=== PATIENT | male | born 1945 | race Caucasian/White ===

== ENCOUNTER 2021-05-02 22:03 | Inpatient (IN) | payer MEDICARE, OTHER, SELFPAY ==
[2021-05-02] VITALS (11 sets, daily range): BP systolic 127–139; BP diastolic 49–56; PULSE 54–81; RESP 16–28; TEMP 36.7; O2SAT 92–97
--- NOTE | 2021-05-02 22:15 | DI.CT_ITS ---
Exam(s) CT ABDOMEN PELVIS W EXAM: CT ABDOMEN PELVIS W CLINICAL HISTORY: RLQ pain TECHNIQUE: Imaging Protocol: Axial computed tomography images with coronal and sagittal reformatted images were created and reviewed CONTRAST MATERIAL: Intravenous: Omnipaque 350 Contrast volume:100 mL Oral: No COMPARISON: CT ABD PELVIS WITH CONTRAST from 11/14/2015 CT THORACIC AND LUMBAR SPINE WO from 11/14/2015 FINDINGS: ABDOMEN: Lung Bases: There are scattered blebs in the lower lobes. There is scarring or atelectasis in the norah ng bases. Liver: Normal density. No measurable mass. Portal, Superior Mesenteric, and Splenic Veins: Unremarkable. Gallbladder and Biliary Tract: No cholelithiasis. The common duct measures up to 1.2 cm. Pancreas: Normal density, no abnormal calcifications or inflammatory process. There is a solitary efe cification again seen in the head of the pancreas. Spleen: Normal. Adrenals: No masses seen. Kidneys: There is scarring seen in the left kidney. Bilateral nonobstructing stones are present. Th ere are bilateral renal cysts. The largest measures 5.1 cm. They are all stable in size and appeara nce with Hounsfield units less than 20. No follow-up is recommended. Abdominal Aorta: Abdominal portion non-dilated. Atherosclerosis. Bowel: No obstruction or bowel wall thickening. No evidence of appendicitis. There is diverticulosis throughout the colon, but no evidence of acute diverticulitis. There is a 2 moderately large midlin e anterior abdominal wall hernias containing loops of transverse colon and small bowel. No evidence of strangulation or obstruction. Peritoneal Cavity: No ascites, collection or mesenteric inflammatory response. No free air. Lymph Nodes: Within normal limits. Bones: Within normal limits for the patient's age. Soft Tissues: Unremarkable. PELVIS: Bladder: Symmetric distention, no gross wall thickening. Reproductive Organs: Enlarged prostate gland which impinges upon the base of the urinary bladder. Lymph Nodes: Within normal limits. Bones: Within normal limits for the patient's age. IMPRESSION: 1. Common duct measuring up to 1.2 cm. No definite pancreatic mass. No cholelithiasis. Please mary elate with patient's clinical findings. MRCP or ERCP should be considered for further evaluation. 2. Two moderately large bowel containing anterior abdominal wall hernias. No evidence of obstruction or strangulation. RADIATION DOSE DELIVERED: 1,662.62mGy.cm Total DLP DATA REPOSITORY: All CT scans at this facility are submitted to the National Radiology Data Registry (NRDR) Dose Index Registry (DIR) with the [employer] (A[employer]). RADIATION OPTIMIZATION: All CT scans at this facility use at least one of these dose optimization te chniques: automated exposure control; mA and/or kV adjustment per patient size (includes targeted exa ms where dose is matched to clinical indication); or iterative reconstruction.
--- NOTE | 2021-05-02 22:15 | W.ED.GENAD ---
Discharge Plan Disposition Patient Disposition: [facility] INPATIENT Condition: Good Discharge Details Clinical Impression: Abdominal pain, Choledocholithiasis Admit Date/Time: 05/03/21 02:30 Admit Provider: Yandel Martinez Attending Provider: Yandel Martinez Primary Care Provider: Unknown,Unknown ED Provider: Grady Peralta Discharge Data Discharge Date/Time-TO BE ENTERED AT DEPARTURE: 05/03/21 02:55 Medical Decision Making <TEODORO Baxter - Last Filed: 05/07/21 08:02> 76-year-old gentleman, past history of abdominal hernia, renal carcinoma, hypertension, A. fib, on Xarelto, presenting with abdominal pain that began around noon today after working with his tractor. Clinically he appears uncomfortable, examination most concerning for strangulated hernia, small bowel obstruction, etc. Will obtain IV access, give IV fluid, Zofran, Dilaudid, obtain CBC, CMP, lipase, urinalysis, lactate and once I have his renal function he will go for a CT of his abdomen and pelvis with contrast Patient reports significant improvement with IV Dilaudid and Zofran Initial laboratory data circular white blood cell count of 6.42 hemoglobin 12.8 hematocrit 37.3 platelet count 201. Lactate of 2.8. Chemistries pending. Medical Records Medical records reviewed: Yes I reviewed the patient's medical records. Lab Data Lab results reviewed: Yes I reviewed the patient's lab results. Labs: Laboratory Tests Range/Units 05/02/21 05/02/21 22:50 22:50 WBC (4.4-10.8) 10^3/uL 6.43 RBC (4.36-5.78) 10^6/uL 3.90 L Hgb (13.5-17.5) g/dL 12.8 L Hct (40.0-50.0) % 37.3 L MCV (80-95) fL 95.6 H MCH (27.0-33.0) pg 32.8 MCHC (32.0-36.0) % 34.3 RDW (11.8-14.1) % 12.9 Plt Count (130-400) 10^3/uL 201 MPV (8.0-11.0) fL 9.6 Immature Gran % 0.5 Neutrophils % 87.5 Lymphocytes % 6.4 Monocytes % 4.8 Eosinophils % 0.6 Basophils % 0.2 Nucleated RBC % % 0 Absolute Neutrophils (1.2-6.7) 10^3/uL 5.63 Absolute Lymphocytes (1.2-3.4) 10^3/uL 0.41 L Absolute Monocytes (0.1-0.8) 10^3/uL 0.31 Absolute Eosinophils (0.0-0.7) 10^3/uL 0.04 Absolute Basophils (0.0-0.2) 10^3/uL 0.01 VBG Lactate (0.6-1.4) mmol/L 2.8 H* <Grady Peralta, DO - Last Filed: 05/03/21 02:38> Case was signed out to me by my colleague Mac Robbins. Please refer to his HPI physical exam assessment and plan. At time of signout we are pending labs and CAT scan results. Labs demonstrate no elevation in white count. No left shift. Lactate is high at 2.8. Electrolytes stable. Anion gap 12.9. Total bili is 2.1 with a conjugated bili of 1.4. Patient does demonstrate transaminitis with an AST of 442 and an ALT of 281. Lipase normal. Urinalysis negative. CT scan shows evidence of prominence of the common bile duct certainly concerning for choledocholithiasis. No radiographic evidence of acute cholecystitis. With these concerning findings we will reach out to [facility] for potential ERCP. 2:20 AM I spoke with Dr. Melendez of [facility], he agrees with the need for ERCP. Unfortunately no beds are available at [facility] at this time. He recommends that we keep the patient here overnight, and then transferred to [facility] in the morning for the procedure and then transfer back after the procedure is complete. currently no clinical evidence of ascending cholangitis. We will contact the hospitalist for admission. Of note the patient did take his Xarelto this evening 6 PM. This will need to be held per the request of [facility]. Of note on repeat physical exam the patient does not demonstrate significant tenderness over the large ventral hernia. No clinical evidence of incarcerated and strangulated herniation at this point clinically or on radiograph. 2:30 AM Discussed the case with the hospitalist Dr. Deion, he agrees with the assessment and plan. I will place bridging orders on his behalf. I have extensively reviewed the treatment plan with the patient. I have addressed all patient concerns at this time. I have also discussed the plan with the admitting physician and they agree with the current assessment and plan and have agreed to assume responsibility for the patient. All parties demonstrate verbal understanding and agreement with our assessment and plan at this time. The documentation in this chart was dictated using [employer] dictation software. Please excuse any dictation errors. FINDINGS: Liver: Normal. No mass. Gallbladder and bile ducts: Mild prominence of the common bile duct, correlate with patient labs to exclude obstruction with MRCP or ERCP for further evaluation as clinically indicated. Pancreas: Normal. No ductal dilation. Spleen: Normal. No splenomegaly. Adrenal glands: Normal. No mass. Kidneys and ureters: Renal cysts up to 5 cm. No hydronephrosis. Nonobstructing left renal calculus. Stomach and bowel: Colonic diverticula. Appendix: No evidence of appendicitis. Intraperitoneal space: Unremarkable. No free air. No significant fluid collection. Vasculature: Unremarkable. No abdominal aortic aneurysm. Lymph nodes: Unremarkable. No enlarged lymph nodes. Urinary bladder: Unremarkable as visualized. Reproductive: Unremarkable as visualized. Bones/joints: Unremarkable. No acute fracture. Soft tissues: Bowel containing midline ventral hernias. IMPRESSION: Mild prominence of the common bile duct, correlate with patient labs to exclude obstruction with MRCP or ERCP for further evaluation as clinically indicated. Thank you for allowing us to participate in the care of your patient. Dictated and Authenticated by: Nicolas Kenney MD 05/03/2021 12:53 AM Eastern Time ([place] & [place]) HPI <TEODORO Baxter - Last Filed: 05/07/21 08:02> General Mode of arrival: ambulatory. Date/Time Provider Initiated Documentation: 05/02/21 22:14. Limitations to Documentation: no limitations. Information obtained by: patient. HPI Narrative: This is a 76-year-old gentleman, who unfortunately is in significant pain making the HPI rather difficult, history of hypertension, presenting for abdominal pain that began earlier today around noon time a wall working on a tractor. Patient reports that he approximately 4 or 5 years ago had abdominal surgery secondary to renal carcinoma. Patient subsequently had a abdominal hernia repair as well. The hernia got larger over the last year or so. Reports pain has been constant, crampy, sharp ever since noon progressively worse now 10 out of 10. Reports nausea, vomiting x2 earlier today. He denies any fever, sick contacts, chest pain, shortness of breath, back pain, dysuria. Patient reports that he had a normal bowel movement this morning. Patient does admit that he has been passing gas this afternoon. Patient reports that he takes Xarelto for atrial fibrillation. We are in the process of attempting to obtain a full medication list, patient is unable to provide full medication list at this time. Patient denies recent illness or trauma. No additional concerns or complaints at this time. Related Data Home Medications Medication Instructions Recorded Confirmed tramadol 50 mg PO QID PRN PRN #30 tab 11/14/15 amitriptyline 10 mg PO DAILY 05/02/21 05/02/21 atorvastatin 80 mg PO QPM 05/02/21 05/02/21 furosemide 20 mg PO Q OTHER DAY 05/02/21 05/02/21 isosorbide mononitrate 60 mg PO DAILY 05/02/21 05/02/21 metoprolol tartrate 125 mg PO DAILY 05/02/21 05/02/21 piroxicam 20 mg PO DAILY 05/02/21 05/02/21 tamsulosin 0.8 mg PO HS 05/02/21 05/02/21 ascorbic acid (vitamin C) [Vitamin 1,000 mg PO DAILY 05/03/21 05/03/21 C] aspirin 81 mg PO DAILY 05/03/21 05/03/21 lisinopril 5 mg PO DAILY 05/03/21 05/03/21 magnesium oxide 400 mg PO DAILY 05/03/21 05/03/21 multivitamin 1 cap PO DAILY 05/03/21 05/03/21 vitamin D3-vitamin K2 1 tab PO DAILY 05/03/21 05/03/21 Xarelto 20 mg PO QPM #0 tab 05/06/21 05/02/21 Previous Rx's Medication Instructions Recorded tramadol 50 mg PO QID PRN PRN #30 tab 11/14/15 Xarelto 20 mg PO QPM #0 tab 05/06/21 Allergies Allergy/AdvReac Type Severity Reaction Status Date / Time piperacillin [From Zosyn] Allergy Severe Anaphylaxis Unverified 05/04/21 07:32 tazobactam [From Zosyn] Allergy Severe Anaphylaxis Unverified 05/04/21 07:32 Review of Systems <TEODORO Baxter - Last Filed: 05/07/21 08:02> Constitutional Constitutional: Denies fatigue and Denies fever(s) ENT Ears, Nose, Mouth, and Throat: Denies neck pain Cardiovascular Cardiovascular: Denies chest pain and Denies dyspnea Respiratory Respiratory: Denies cough and Denies dyspnea Gastrointestinal Gastrointestinal: Reports abdominal pain, Denies constipation, Denies diarrhea, Reports nausea and Reports vomiting Genitourinary Genitourinary: Denies dysuria Musculoskeletal Musculoskeletal: Denies back pain and Denies neck pain Integumentary/Breasts Skin/Breast: Denies rash Endocrine Endocrine: Denies fatigue PFSH <TEODORO Baxter - Last Filed: 05/07/21 08:02> Medical History Chronic anticoagulation Kidney malignancy Prostate cancer Ventral hernia Surgical History History of cardiac catheterization Social History Smoking/Tobacco Use Status: Never Smoking risk assessment performed?: Yes Alcohol Intake: current Alcohol Intake frequency: a few times a week Drug use: Never Substance use type: does not use Do you feel safe at home: Yes Do you feel safe in your relationship?: Yes Exam <TEODORO Baxter - Last Filed: 05/07/21 08:02> Const General: cooperative and in distress Nutritional Appearance: obese Orientation: alert, awake and oriented x3 HENMT Head: normal to inspection, normocephalic and atraumatic Face and sinus: normal facial exam Mouth: moist mucous membranes Eyes General: appearance normal, both eyes and all related structures Conjunctivae: conjunctivae normal Neck Neck: normal visual inspection, full ROM, trachea midline and supple Resp Effort & Inspection: normal respiratory effort and able to speak in complete sentences Auscultation: clear to auscultation bilaterally Cardio Rate: regular rate Rhythm: abnormal rhythm irregularly irregular GI Inspection: obesity Palpation: soft, not firm, guarding, no pulsatile masses and tender Auscultation: normal bowel sounds Other: Patient with a vertical surgical scar, appears well-healed. Patient is morbidly obese but centrally there is a large, soft but tender hernia. Unable to reduce it. Patient has diffuse abdominal discomfort but he is most tender over the hernia Back/Spine/Pelvis Back: No back tenderness Skin General skin exam: no rashes or lesions noted Neuro General: patient alert, patient awake, moves all extremities and no focal motor deficits Cognition: normal cognition Sensory Exam: no sensory deficits noted Psych Appearance: grossly normal Mental Status: mental status grossly normal Sign Out <TEODORO Baxter - Last Filed: 05/07/21 08:02> Sign Out Data: Sign Out Comment: Abdominal pain, examination concerning for small bowel obstruction, incarcerated hernia, etc. Lactate of 2.8. Awaiting CT of abdomen pelvis with contrast Last updated by Mac Robbins PA at 05/02/21 23:30
[2021-05-02] MEDS: HYDROmorphone 2 MG/ML VIAL 1 MG IVP (22:58)
[2021-05-02] MEDS: Ondansetron 4 MG/2 ML VIAL IVP (22:59)
[2021-05-02] MEDS: Normal Saline 1,000 ML 125 ML IV (23:02)
[2021-05-02 23:03] LABS: Abs Immature Grans 0.03 10^3/uL (0.0-0.06); Absolute Basophil Count 0.01 10^3/uL (0.0-0.2); Absolute Eosinophil Count 0.04 10^3/uL (0.0-0.7); Absolute Lymphocyte Count 0.41 10^3/uL (1.2-3.4); Absolute Monocyte Count 0.31 10^3/uL (0.1-0.8); Absolute Neutrophil Count 5.63 10^3/uL (1.2-6.7); Basophils % 0.2; Eosinophils % 0.6; HCT 37.3 % (40.0-50.0); HGB 12.8 g/dL (13.5-17.5); Immature Grans % 0.5; Lymphocytes % 6.4; MCH 32.8 pg (27.0-33.0); MCHC 34.3 % (32.0-36.0); MCV 95.6 fL (80-95); MPV 9.6 fL (8.0-11.0); Monocytes % 4.8; Neutrophils % 87.5; Nucleated RBC 0 %; Platelet Count 201 10^3/uL (130-400); RDW 12.9 % (11.8-14.1); RDW-SD 45.3 fL; WBC 6.43 10^3/uL (4.4-10.8)
[2021-05-02 23:06] LABS: Lactate 2.8 mmol/L (0.6-1.4)
[2021-05-02 23:17] LABS: ALT 281 U/L (16-63); AST 442 U/L (15-37); Albumin 3.8 g/dL (3.4-5.0); Alkaline Phosphatase 130 U/L (46-116); Anion Gap 12.9 mmol/L (3-11); BUN 31 mg/dL (7-18); Bilirubin, Total 2.1 mg/dL (0.2-1.0); CO2 24.1 mmol/L (21.0-32.0); CREATININE 1.3 mg/dL (0.70-1.30); Calcium 9.3 mg/dL (8.5-10.1); Chloride 106 mmol/L (98-107); Estimated GFR 53.82 (mL/min/1.73m2); Glucose 126 mg/dL (74-106); Lipase 163 U/L (73-393); Potassium 4.5 mmol/L (3.5-5.1); Sodium 143 mmol/L (136-145); Total Protein 7.3 g/dL (6.4-8.2)
[2021-05-02 23:47] LABS: Bilirubin, Direct 1.4 mg/dL (0.0-0.2)
[2021-05-03] VITALS (79 sets, daily range): BP systolic 102–153; BP diastolic 45–77; PULSE 60–98; RESP 15–37; TEMP 36.5–37.4; O2SAT 85–100
[2021-05-03] MEDS: Normal Saline Flush 10 ML SYR IVP ×2 (00:22→16:34)
[2021-05-03] MEDS: Omnipaque 350 MG/ML 100 ML BTL IJ (00:23)
[2021-05-03] MEDS: Normal Saline - Diluent 50 ML VIAL IV (00:23)
[2021-05-03 00:26] LABS: Bilirubin Negative (Negative); Blood Negative (Negative); Clarity Clear (Clear); Glucose Negative (Negative); Ketones Negative (Negative); Leukocyte Esterase Negative (Negative); Nitrite Negative (Negative); Urobilinogen 0.2 EU/dL (Up TO 0.2)
--- NOTE | 2021-05-03 00:53 | DI.VRAD_ITS ---
PROCEDURE INFORMATION: Exam: CT Abdomen And Pelvis With Contrast Exam date and time: 05/02/2021 10:17 PM Age: 76 years old Clinical indication: Abdominal pain; Localized; Right lower quadrant (rlq); Prior surgery; Surgery date: 6+ months; Patient HX: Left kidney partially removed, umbilical hernia repair, HX kindey CA, prostate CA. Rlq pain with nausea/vomiting TECHNIQUE: Imaging protocol: Computed tomography of the abdomen and pelvis with contrast. Radiation optimization: All CT scans at this facility use at least one of these dose optimization techniques: automated exposure control; mA and/or kV adjustment per patient size (includes targeted exams where dose is matched to clinical indication); or iterative reconstruction. Contrast material: [id number]; Contrast volume: 100 ml; Contrast route: INTRAVENOUS (IV); COMPARISON: CT ABD PELVIS WITH CONTRAST 11/14/2015 4:45 AM FINDINGS: Liver: Normal. No mass. Gallbladder and bile ducts: Mild prominence of the common bile duct, correlate with patient labs to exclude obstruction with MRCP or ERCP for further evaluation as clinically indicated. Pancreas: Normal. No ductal dilation. Spleen: Normal. No splenomegaly. Adrenal glands: Normal. No mass. Kidneys and ureters: Renal cysts up to 5 cm. No hydronephrosis. Nonobstructing left renal calculus. Stomach and bowel: Colonic diverticula. Appendix: No evidence of appendicitis. Intraperitoneal space: Unremarkable. No free air. No significant fluid collection. Vasculature: Unremarkable. No abdominal aortic aneurysm. Lymph nodes: Unremarkable. No enlarged lymph nodes. Urinary bladder: Unremarkable as visualized. Reproductive: Unremarkable as visualized. Bones/joints: Unremarkable. No acute fracture. Soft tissues: Bowel containing midline ventral hernias. IMPRESSION: Mild prominence of the common bile duct, correlate with patient labs to exclude obstruction with MRCP or ERCP for further evaluation as clinically indicated. Dictated and Authenticated by: Nicolas Kenney MD. Ordering:ASHANTI Watts MD
[2021-05-03] MEDS: HYDROmorphone 2 MG/ML VIAL (01:20)
[2021-05-03 03:42] LABS: COVID-19 PCR Negative (Negative)
--- NOTE | 2021-05-03 06:18 | HPE_ITS ---
Date of service: 05/03/21 Time of Service: 06:18 Assessment and Plan Assessment and plan (1) Choledocholithiasis: Status: Acute Assessment and plan: He was admitted to the emergency department early thi s morning. His morning tests are still pending. He has been receiving intravenous fluids. His morning labs are still pending. I think I will give him a dose of piperacillin/tazobactam because of possible cholangitis this morning and we will see what his lab tests show. His lactate was a bit high in the emergency department and that will be repeated this morning. He is awaiting transfer to [facility] under the care of gastroenterology for an ERCP. I will continue his home medicines except we will stop his anticoagulant. We will also hold on his lisinopril. History of Present Illness History of Present Illness Chief Complaint: abdominal pain Narrative: This 76-year-old male came to the emergency department because of abdominal pain. He has had abdominal pain on and off for years. He says in the last year he has had some difficulty with dysphagia and it is worse with eating meats such as chicken. He says if he does not chew the chicken completely he can feel like he gets clogged and was epigastrium and chest. Yesterday he had some eggs for breakfast and began having vomiting and nausea. He vomited about 3 times. He came to emergency room for evaluation. Evaluation in the emergency department showed elevated liver function tests and dilated common bile duct. [facility] was consulted and arrangements were made for him to go today for an ERCP. He feels comfortable at this time because of the narcotic pain meds. He is currently n.p.o. He lives here 3 weeks out of every month. His home with his female partner is in [facility]. He gets most of his care there. He has been treated with radiation for prostate cancer and had a partial nephrectomy for renal cancer. He has a ventral hernia. He was treated about a year ago for hematuria which she says is due to his radiation treatment for the prostate cancer. He received both of his coronavirus vaccines. 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 He has not had pain as severe as this in the past. Review of Systems Constitutional Constitutional: Reports chills, Denies fever(s) and Reports poor appetite ENT Ears, Nose, Mouth, and Throat: Reports dysphagia Cardiovascular Cardiovascular: Denies chest pain and Denies dyspnea Respiratory Respiratory: Denies dyspnea Gastrointestinal Gastrointestinal: Reports dysphagia, Reports early satiety, Denies diarrhea, Reports nausea and Reports vomiting Genitourinary Genitourinary: Reports difficulty urinating, Reports erectile dysfunction, Denies dysuria, Reports nocturia (x3-4), Reports urinary frequency and Reports urinary urgency PFSH Medical History (Updated 05/03/21 @ 06:18 by Yandel Martinez MD) Chronic anticoagulation Kidney malignancy Prostate cancer Ventral hernia Surgical History (Updated 05/03/21 @ 06:25 by Yandel Martinez MD) History of cardiac catheterization Social History Smoking/Tobacco Use Status: Never Smoking risk assessment performed?: Yes Alcohol Intake: current Alcohol Intake frequency: a few times a week Drug use: Never Substance use type: does not use Do you feel safe at home: Yes Do you feel safe in your relationship?: Yes Meds Allergies and Home Medications Allergies Allergy/AdvReac Type Severity Reaction Status Date / Time No Known Allergies Allergy Unverified 05/02/21 22:24 Home Medications Medication Instructions Recorded Confirmed Type tramadol 50 mg PO QID PRN PRN #30 tab 11/14/15 Rx amitriptyline 10 mg PO DAILY 05/02/21 05/02/21 History atorvastatin 80 mg PO QPM 05/02/21 05/02/21 History furosemide 20 mg PO Q OTHER DAY 05/02/21 05/02/21 History isosorbide mononitrate 60 mg PO DAILY 05/02/21 05/02/21 History metoprolol tartrate 125 mg PO DAILY 05/02/21 05/02/21 History piroxicam 20 mg PO DAILY 05/02/21 05/02/21 History rivaroxaban [Xarelto] 20 mg PO QPM 05/02/21 05/02/21 History tamsulosin 0.8 mg PO HS 05/02/21 05/02/21 History ascorbic acid (vitamin C) [Vitamin 1,000 mg PO DAILY 05/03/21 05/03/21 History C] aspirin 81 mg PO DAILY 05/03/21 05/03/21 History lisinopril 5 mg PO DAILY 05/03/21 05/03/21 History magnesium oxide 400 mg PO DAILY 05/03/21 05/03/21 History multivitamin 1 cap PO DAILY 05/03/21 05/03/21 History vitamin D3-vitamin K2 1 tab PO DAILY 05/03/21 05/03/21 History Exam Const General: cooperative Nutritional Appearance: overweight Orientation: alert and oriented x3 Limitations: mental status not altered Neck Neck: normal visual inspection and no lymphadenopathy Thyroid: thyroid normal Resp Effort & Inspection: normal respiratory effort Auscultation: no rales, no rhonchi and no wheezes Cardio Jugular venous pressure: no JVD Rate: regular rate Rhythm: regular rhythm Heart Sounds: S1 normal, S2 normal, no gallops and no murmurs GI Palpation: no hepatosplenomegaly, tender in the epigastrum and No ascites Neuro General: patient awake, patient oriented x3 and no focal motor deficits Cranial Nerves: tongue midline Motor: muscle tone normal throughout Extrem General: normal to inspection, no cyanosis and no edema Results Labs Result diagrams: 05/02/21 22:50 05/02/21 22:50 Labs: Laboratory Results - last 24 hr 05/02/21 05/02/21 05/02/21 22:50 22:50 22:50 WBC 6.43 RBC 3.90 L Hgb 12.8 L Hct 37.3 L MCV 95.6 H MCH 32.8 MCHC 34.3 RDW 12.9 Plt Count 201 MPV 9.6 Immature Gran % 0.5 Neutrophils % 87.5 Lymphocytes % 6.4 Monocytes % 4.8 Eosinophils % 0.6 Basophils % 0.2 Nucleated RBC % 0 Absolute Neutrophils 5.63 Absolute Lymphocytes 0.41 L Absolute Monocytes 0.31 Absolute Eosinophils 0.04 Absolute Basophils 0.01 VBG Lactate 2.8 H* Sodium 143 Potassium 4.5 Chloride 106 Carbon Dioxide 24.1 Anion Gap 12.9 H BUN 31 H Creatinine 1.3 Estimated GFR/1.73 m2 53.82 Glucose 126 H Calcium 9.3 Total Bilirubin 2.1 H Conjugated Bilirubin AST 442 H ALT 281 H Alkaline Phosphatase 130 H Total Protein 7.3 Albumin 3.8 Lipase 163 Urine Color Urine Clarity Urine pH Ur Specific [place] Urine Protein Urine Ketones Urine Blood Urine Nitrite Urine Bilirubin Urine Urobilinogen Ur Leukocyte Esterase Urine Glucose COVID-19 Source SARS-CoV-2 (PCR) 06/09/1205/03/21 05/03/21 22:50 00:20 02:40 WBC RBC Hgb Hct MCV MCH MCHC RDW Plt Count MPV Immature Gran % Neutrophils % Lymphocytes % Monocytes % Eosinophils % Basophils % Nucleated RBC % Absolute Neutrophils Absolute Lymphocytes Absolute Monocytes Absolute Eosinophils Absolute Basophils VBG Lactate Sodium Potassium Chloride Carbon Dioxide Anion Gap BUN Creatinine Estimated GFR/1.73 m2 Glucose Calcium Total Bilirubin Conjugated Bilirubin 1.4 H AST ALT Alkaline Phosphatase Total Protein Albumin Lipase Urine Color Yellow Urine Clarity Clear Urine pH 6.0 Ur Specific [place] 1.020 Urine Protein Negative Urine Ketones Negative Urine Blood Negative Urine Nitrite Negative Urine Bilirubin Negative Urine Urobilinogen 0.2 Ur Leukocyte Esterase Negative Urine Glucose Negative COVID-19 Source Nasopharyx SARS-CoV-2 (PCR) Negative Last Vital Signs Temp 37.3 C 05/03/21 03:38 Pulse 89 05/03/21 03:38 Resp 15 05/03/21 03:38 BP 112/65 05/03/21 03:38 Pulse Ox 96 05/03/21 03:38 COVID-19 Screening Have you, or household traveled for leisure in last 14 days?: No Had IN PERSON contact w/suspected or confirmed C-19 person: No
[2021-05-03] MEDS: Normal Saline 1,000 ML 150 ML IV ×2 (06:49→16:05)
[2021-05-03 06:53] LABS: Abs Immature Grans 0.08 10^3/uL (0.0-0.06); Absolute Basophil Count 0.01 10^3/uL (0.0-0.2); Absolute Eosinophil Count 0.01 10^3/uL (0.0-0.7); Absolute Lymphocyte Count 0.28 10^3/uL (1.2-3.4); Absolute Monocyte Count 0.82 10^3/uL (0.1-0.8); Absolute Neutrophil Count 9.54 10^3/uL (1.2-6.7); Basophils % 0.1; Eosinophils % 0.1; HCT 36.6 % (40.0-50.0); HGB 12.3 g/dL (13.5-17.5); Immature Grans % 0.7; Lymphocytes % 2.6; MCH 32.2 pg (27.0-33.0); MCHC 33.6 % (32.0-36.0); MCV 95.8 fL (80-95); MPV 9.6 fL (8.0-11.0); Monocytes % 7.6; Neutrophils % 88.9; Nucleated RBC 0 %; Platelet Count 179 10^3/uL (130-400); RBC 3.82 10^6/uL (4.36-5.78); RDW 13.2 % (11.8-14.1); RDW-SD 46.6 fL; WBC 10.73 10^3/uL (4.4-10.8)
[2021-05-03 06:58] LABS: Lactate 2.2 mmol/L (0.6-1.4)
[2021-05-03 07:14] LABS: ALT 318 U/L (16-63); AST 364 U/L (15-37); Albumin 3.6 g/dL (3.4-5.0); Alkaline Phosphatase 125 U/L (46-116); Anion Gap 13.2 mmol/L (3-11); BUN 29 mg/dL (7-18); Bilirubin, Total 4.5 mg/dL (0.2-1.0); CO2 20.8 mmol/L (21.0-32.0); CREATININE 1.4 mg/dL (0.70-1.30); Calcium 9.2 mg/dL (8.5-10.1); Chloride 108 mmol/L (98-107); Estimated GFR 49.41 (mL/min/1.73m2); Glucose 126 mg/dL (74-106); Potassium 4.7 mmol/L (3.5-5.1); Sodium 142 mmol/L (136-145); Total Protein 7.1 g/dL (6.4-8.2)
[2021-05-03] MEDS: PIPERACILLIN/TAZO 4.5 GM in Normal Saline 100 ML IVPB ×2 (08:15→13:55)
--- NOTE | 2021-05-03 10:16 | INITIAL_ITS ---
- If Service Date Differs Date of service: 05/03/21 Time of Service: 11:50 Care Management Initial Assess REASON FOR HOSPITALIZATION:: Choledocholithiasis PAST MEDICAL HISTORY/PAST SURGICAL HISTORY:: Chronic anticoagulation. Kidney malignancy. Prostate cancer. Ventral hernia. History of cardiac catheterization PREVIOUS FUNCTIONAL STATUS/SOCIAL/FAMILY SUPPORTS:: Mando resides in [place], [place], on [address]. He is independent at baseline and was loading his tractor when he sustained this injury. He is and his current significant other resides in [place]. His close friend Mac resides in [place], [place]. CURRENT FUNCTIONAL STATUS:: Mando understands his plan of care and is agreeable to waiting at [facility] until the ERCP can be completed in [facility] on Thursday. He is independent in his room at this time, CM continues to follow. ADVANCE DIRECTIVES:: None on file at [facility]. Has patient been provided with info about the portal/API?: Yes Did the patient sign up for the portal?: No CODE STATUS:: Full Code INSURANCE COVERAGE / FINANCIAL ISSUES:: Medicare. [employer] CURRENT HOME/COMMUNITY SERVICES/EQUIPMENT:: Cane POTENTIAL DISCHARGE NEEDS:: ERCP at [facility] on Thursday to inform next steps in discharge planning. PATIENT/FAMILY EDUCATION NEEDS:: Review discharge instructions, discuss Ask Me Three. ANTICIPATED BARRIERS TO DISCHARGE:: ERCP, holding Xarelto. TRANSPORTATION:: Via private vehicle with a friend. PLAN:: Mando is awaiting a down and back appointment at [facility] for an ERCP scheduled for 06/05/21. RN Student Support Advisor to schedule transportation. His Zarelto is being held over the weekend, he will remain at [facility] awaiting ERCP. CM continues to follow.
[2021-05-03] MEDS: Magnesium Oxide 400 MG TAB PO (10:23)
[2021-05-03] MEDS: Metoprolol 50 MG TAB 100 MG PO (10:23)
[2021-05-03] MEDS: Furosemide 20 MG TAB PO (10:23)
[2021-05-03] MEDS: Isosorbide Mononitrate 30 MG TABCR 60 MG PO (10:24)
[2021-05-03] MEDS: Metoprolol 25 MG TAB PO (10:24)
--- NOTE | 2021-05-03 10:40 | NUR.NOTE ---
Addendum entered by Bela Reid 05/03/21 12:43: April to potato picker at [phone]. Original Note: Nursing Note: RECEIVED CALL FROM [facility] REGARDING ERCP FOR THURSDAY. WILL NEED TO ARRIVE AT NOON AT 4W. CALL REPORT TO [phone]. NPO AFTER [place] THURSDAY
[2021-05-03 10:48] LABS: Procalcitonin 6.3 ng/mL
--- NOTE | 2021-05-03 12:44 | PGE_ITS ---
Date of Service Date of service: 05/03/21 Time of Service: 12:44 Assessment and Plan Assessment and plan (1) Abdominal pain: Status: Acute Assessment and plan: presumption is that of choledocholithiasis however no gall stones were seen on CT of abdomen/pelvis. However he has elevated LFT and bilirubin w/ normal lipase and CT showed no abnormal liver architecture, no pancreatic ductal dilatation and no masses however he has a single calcification in the head of the pancreas. he has two moderately large bowel containing anterior abdominal wall hernias w/out evidence for strangulation. His common bile duct measures 1.2 cm. He will remain here on iv fluids, analgesics, antiemetics and plan for ERCP on Thursday unless he deteriorates. Qualifiers: Abdominal location: right upper quadrant Qualified Code(s): R10.11 - Right upper quadrant pain (2) Choledocholithiasis: Status: Acute Assessment and plan: as above. (3) Atrial fibrillation: Status: Chronic Assessment and plan: paroxysmal in nature. hold Xarelto but continue rate control w/ metoprolol. Subjective Subjective Interval history since last seen: Patient admitted w/ abdominal pain, nausea and vomiting and was diagnosed w/ biliary ductal dilatation but no stones were seen. Pancreatic duct was normal. Labs were remarkable for incr. transaminases (AST 442, ALT 281) and elevated bilirubin (2.1) and elevated alkaline phosphatase (130) but no leukocytosis however he had an anion gap acidosis (AG 12.9) and elevated lactate 2.8. [facility] was called last night for transfer for ERCP. They had indicated they could take him for ERCP on a down and back transfer however, when they found out that he has been on Xarelto GI at [facility] indicated he needs to be off this for 48 hr prior to procedure. I spoke w/ Dr. Rambo Rehman, GI fellow. He indicated that as long as patient remains stable they would wait until Thursday. He indicated that he did not think the patient needed antibiotics. I explained to him that Dr. Martinez started Zosyn d/t the elevated lactate which is rising this morning and the rising WBC (went up from 6400 to 10,730). Patient has been requesting a diet this morning so he was put on clear liquids. Exam Narrative Exam Narrative: Obese white male who appears mildly jaundiced, alert and oriented x 3 Heart regular w/out murmur or rub Lungs clear Abdomen: obese w/ large ventral hernia, soft w/ active bowel sounds and mild tenderness in RUQ Objective Last Vital Signs Temp 36.5 C 05/03/21 11:26 Pulse 60 05/03/21 11:26 Resp 18 05/03/21 11:26 BP 107/60 05/03/21 11:26 Pulse Ox 96 05/03/21 11:26 Laboratory Results - last 24 hr 05/02/21 05/02/21 05/02/21 22:50 22:50 22:50 WBC 6.43 RBC 3.90 L Hgb 12.8 L Hct 37.3 L MCV 95.6 H MCH 32.8 MCHC 34.3 RDW 12.9 Plt Count 201 MPV 9.6 Immature Gran % 0.5 Neutrophils % 87.5 Lymphocytes % 6.4 Monocytes % 4.8 Eosinophils % 0.6 Basophils % 0.2 Nucleated RBC % 0 Absolute Neutrophils 5.63 Absolute Lymphocytes 0.41 L Absolute Monocytes 0.31 Absolute Eosinophils 0.04 Absolute Basophils 0.01 VBG Lactate 2.8 H* Sodium 143 Potassium 4.5 Chloride 106 Carbon Dioxide 24.1 Anion Gap 12.9 H BUN 31 H Creatinine 1.3 Estimated GFR/1.73 m2 53.82 Glucose 126 H Calcium 9.3 Total Bilirubin 2.1 H Conjugated Bilirubin AST 442 H ALT 281 H Alkaline Phosphatase 130 H Total Protein 7.3 Albumin 3.8 Lipase 163 Procalcitonin Urine Color Urine Clarity Urine pH Ur Specific [place] Urine Protein Urine Ketones Urine Blood Urine Nitrite Urine Bilirubin Urine Urobilinogen Ur Leukocyte Esterase Urine Glucose COVID-19 Source SARS-CoV-2 (PCR) 05/02/21 05/03/21 05/03/21 22:50 00:20 02:40 WBC RBC Hgb Hct MCV MCH MCHC RDW Plt Count MPV Immature Gran % Neutrophils % Lymphocytes % Monocytes % Eosinophils % Basophils % Nucleated RBC % Absolute Neutrophils Absolute Lymphocytes Absolute Monocytes Absolute Eosinophils Absolute Basophils VBG Lactate Sodium Potassium Chloride Carbon Dioxide Anion Gap BUN Creatinine Estimated GFR/1.73 m2 Glucose Calcium Total Bilirubin Conjugated Bilirubin 1.4 H AST ALT Alkaline Phosphatase Total Protein Albumin Lipase Procalcitonin Urine Color Yellow Urine Clarity Clear Urine pH 6.0 Ur Specific [place] 1.020 Urine Protein Negative Urine Ketones Negative Urine Blood Negative Urine Nitrite Negative Urine Bilirubin Negative Urine Urobilinogen 0.2 Ur Leukocyte Esterase Negative Urine Glucose Negative COVID-19 Source Nasopharyx SARS-CoV-2 (PCR) Negative 05/03/21 05/03/21 05/03/21 06:50 06:50 06:50 WBC 10.73 D RBC 3.82 L Hgb 12.3 L Hct 36.6 L MCV 95.8 H MCH 32.2 MCHC 33.6 RDW 13.2 Plt Count 179 MPV 9.6 Immature Gran % 0.7 Neutrophils % 88.9 Lymphocytes % 2.6 Monocytes % 7.6 Eosinophils % 0.1 Basophils % 0.1 Nucleated RBC % 0 Absolute Neutrophils 9.54 H Absolute Lymphocytes 0.28 L Absolute Monocytes 0.82 H Absolute Eosinophils 0.01 Absolute Basophils 0.01 VBG Lactate 2.2 H* Sodium 142 Potassium 4.7 Chloride 108 H Carbon Dioxide 20.8 L Anion Gap 13.2 H BUN 29 H Creatinine 1.4 H Estimated GFR/1.73 m2 49.41 Glucose 126 H Calcium 9.2 Total Bilirubin 4.5 H Conjugated Bilirubin AST 364 H ALT 318 H Alkaline Phosphatase 125 H Total Protein 7.1 Albumin 3.6 Lipase Procalcitonin Urine Color Urine Clarity Urine pH Ur Specific [place] Urine Protein Urine Ketones Urine Blood Urine Nitrite Urine Bilirubin Urine Urobilinogen Ur Leukocyte Esterase Urine Glucose COVID-19 Source SARS-CoV-2 (PCR) 05/03/21 06:50 WBC RBC Hgb Hct MCV MCH MCHC RDW Plt Count MPV Immature Gran % Neutrophils % Lymphocytes % Monocytes % Eosinophils % Basophils % Nucleated RBC % Absolute Neutrophils Absolute Lymphocytes Absolute Monocytes Absolute Eosinophils Absolute Basophils VBG Lactate Sodium Potassium Chloride Carbon Dioxide Anion Gap BUN Creatinine Estimated GFR/1.73 m2 Glucose Calcium Total Bilirubin Conjugated Bilirubin AST ALT Alkaline Phosphatase Total Protein Albumin Lipase Procalcitonin 6.3 Urine Color Urine Clarity Urine pH Ur Specific [place] Urine Protein Urine Ketones Urine Blood Urine Nitrite Urine Bilirubin Urine Urobilinogen Ur Leukocyte Esterase Urine Glucose COVID-19 Source SARS-CoV-2 (PCR)
[2021-05-03] MEDS: HYDROmorphone 2 MG/ML VIAL IVP (16:33)
--- NOTE | 2021-05-03 17:15 | RT.EKG_ITS ---
APPROVED REPORT Exam: Resting ECG Reason for Exam: dyspnea Patient Location: I HR:87 bpm ECG Measurements Heart Rate 87 AXIS ME 233 P 79 QRSd 154 QRS 21 QT 394 T -9 QTc 474 Conclusion Sinus rhythm...normal P axis, V-rate 60- 99 Prolonged ME interval...ME >220, V-rate 50- 90 Right bundle branch block...QRSd>120, terminal axis(90,270)
[2021-05-03] MEDS: diphenhydrAMINE 50 MG/ML VIAL IVP (17:18)
[2021-05-03] MEDS: EPINEPHrine 0.3 MG KIT IM ×2 (17:18→17:33)
[2021-05-03] MEDS: methylPREDNISolone SUCC 125 MG VIAL IVP (17:33)
[2021-05-03] MEDS: FAMOTIDINE 20 MG/50 ML BAG 200 MG IVPB (17:33)
--- NOTE | 2021-05-03 18:02 | DI.RAD_ITS ---
Exam(s) XR PORTABLE CHEST AP EXAM: XR PORTABLE CHEST AP CLINICAL HISTORY: dyspnea TECHNIQUE: 2D digital imaging was performed. COMPARISON: No exams were available for comparison FINDINGS: MEDIASTINUM: Nodularity seen in the right hilum. This may be vascular but a right hilar mass or kerry opathy cannot be excluded. HEART: Normal. PULMONARY VASCULATURE: Normal. LUNGS: Increased lung markings are seen in the medial aspect of the right lung base. PLEURAL SPACE: No pleural effusion or pneumothorax. BONE:Within normal limits for the patient's age. OTHER FINDINGS:Normal. IMPRESSION: 1. Right basilar infiltrate suspected. 2. Nodularity in the right hilum. This may represent adenopathy or mass. CT follow-up should be con sidered for further evaluation. DATA REPOSITORY: RADIATION DOSE DELIVERED:
--- NOTE | 2021-05-03 18:09 | W.PM.PROGNOT ---
Date of Service Date of service: 05/03/21 Time of Service: 17:14 Assessment and Plan Assessment and plan (1) Allergic reaction caused by a drug: Status: Acute Assessment and plan: patient had acute episode of dyspnea/flash pulmonary edema d/t PCN reaction to Zosyn. Patient improved after epinephrine, oxygen and benadryl. Because he is showing signs of developing sepsis from his acute CBD obstruction, he still needs antibiotics. I have discussed his case w/ Dr. Bateman who will be taking over. Patient will go on Cipro and Flagyl and we will get blood cultures. Dr. Bateman will discuss transfer w/ [facility]. Qualifiers: Encounter type: initial encounter Qualified Code(s): T78.40XA - Allergy, unspecified, initial encounter (2) Abdominal pain: Status: Acute Assessment and plan: awaiting repeat labs. will get abdominal series. patient needs urent attention to his ERCP. He may need reversal of his Xarelto but we will let [facility] make that call depending on how soon they feel they need to perform his ERCP. Qualifiers: Abdominal location: right upper quadrant Qualified Code(s): R10.11 - Right upper quadrant pain (3) Choledocholithiasis: Status: Acute Assessment and plan: NPO, iv fluids, change analgesic to fentanyl (does not cross react to hyrdromorphone) (4) Atrial fibrillation: Status: Chronic Assessment and plan: currently in SR. will switch his po BB to iv lopressor. Subjective Subjective Interval history since last seen: Called to see patient regarding severe tremors/rigors, abdominal pains and dyspnea. Patient is afebrile but sitting up in his chair w/ multiple nurses around him. He is dyspneic and asking to sit up to breath. he has audible wheezing and stridor. No chest pain but severe abdominal pains. he had just received hydromorphone 1 mg ivp at 16:33 for abdominal pain and he is currently receiving Zosyn infusion. We stopped the Zosyn and patient was given two doses of epinephrine 0.3 mg IM about 5 minutes apart. He was put on supplemental oxygen per nasal cannula for low oxygen saturation of 84%. BP 186/94 w/ HR 99 bpm. Patient was also given benadryl 50 mg IVP and solumedrol 125 mg is being given. Due to his acute reaction I spoke w/ pharmacy and asked about alternative analgesics and we are going to use fentanyl for abdominal pain. He is being moved to ICU for treatment of acute allergic reaction however d/t his dyspnea I am checking an EKG and CXR and labs including BNP, troponin I and repeat his CBC, CMP. His procalcitonin earlier today was elevated at 6.3 which suggests that he is getting bacteremic. We will keep him off the Zosyn as this acute episode which now seems to have calmed down after two doses of epinephrine 0.3 mg IM and benadryl 50 mg IVP and suggests an allergic reaction. However, I do think that he is getting septic from the acute biliary ductal obstruction. I will cover w/ Objective Last Vital Signs Temp 36.6 C 05/03/21 15:51 Pulse 92 H 05/03/21 18:03 Resp 27 H 05/03/21 18:03 BP 153/73 H 05/03/21 18:03 Pulse Ox 96 05/03/21 18:03 Laboratory Results - last 24 hr 05/02/21 05/02/21 05/02/21 22:50 22:50 22:50 WBC 6.43 RBC 3.90 L Hgb 12.8 L Hct 37.3 L MCV 95.6 H MCH 32.8 MCHC 34.3 RDW 12.9 Plt Count 201 MPV 9.6 Immature Gran % 0.5 Neutrophils % 87.5 Lymphocytes % 6.4 Monocytes % 4.8 Eosinophils % 0.6 Basophils % 0.2 Nucleated RBC % 0 Absolute Neutrophils 5.63 Absolute Lymphocytes 0.41 L Absolute Monocytes 0.31 Absolute Eosinophils 0.04 Absolute Basophils 0.01 VBG Lactate 2.8 H* Sodium 143 Potassium 4.5 Chloride 106 Carbon Dioxide 24.1 Anion Gap 12.9 H BUN 31 H Creatinine 1.3 Estimated GFR/1.73 m2 53.82 Glucose 126 H Calcium 9.3 Total Bilirubin 2.1 H Conjugated Bilirubin AST 442 H ALT 281 H Alkaline Phosphatase 130 H Total Protein 7.3 Albumin 3.8 Lipase 163 Procalcitonin Urine Color Urine Clarity Urine pH Ur Specific [place] Urine Protein Urine Ketones Urine Blood Urine Nitrite Urine Bilirubin Urine Urobilinogen Ur Leukocyte Esterase Urine Glucose COVID-19 Source SARS-CoV-2 (PCR) 05/02/21 05/03/21 05/03/21 22:50 00:20 02:40 WBC RBC Hgb Hct MCV MCH MCHC RDW Plt Count MPV Immature Gran % Neutrophils % Lymphocytes % Monocytes % Eosinophils % Basophils % Nucleated RBC % Absolute Neutrophils Absolute Lymphocytes Absolute Monocytes Absolute Eosinophils Absolute Basophils VBG Lactate Sodium Potassium Chloride Carbon Dioxide Anion Gap BUN Creatinine Estimated GFR/1.73 m2 Glucose Calcium Total Bilirubin Conjugated Bilirubin 1.4 H AST ALT Alkaline Phosphatase Total Protein Albumin Lipase Procalcitonin Urine Color Yellow Urine Clarity Clear Urine pH 6.0 Ur Specific [place] 1.020 Urine Protein Negative Urine Ketones Negative Urine Blood Negative Urine Nitrite Negative Urine Bilirubin Negative Urine Urobilinogen 0.2 Ur Leukocyte Esterase Negative Urine Glucose Negative COVID-19 Source Nasopharyx SARS-CoV-2 (PCR) Negative 05/03/21 05/03/21 05/03/21 06:50 06:50 06:50 WBC 10.73 D RBC 3.82 L Hgb 12.3 L Hct 36.6 L MCV 95.8 H MCH 32.2 MCHC 33.6 RDW 13.2 Plt Count 179 MPV 9.6 Immature Gran % 0.7 Neutrophils % 88.9 Lymphocytes % 2.6 Monocytes % 7.6 Eosinophils % 0.1 Basophils % 0.1 Nucleated RBC % 0 Absolute Neutrophils 9.54 H Absolute Lymphocytes 0.28 L Absolute Monocytes 0.82 H Absolute Eosinophils 0.01 Absolute Basophils 0.01 VBG Lactate 2.2 H* Sodium 142 Potassium 4.7 Chloride 108 H Carbon Dioxide 20.8 L Anion Gap 13.2 H BUN 29 H Creatinine 1.4 H Estimated GFR/1.73 m2 49.41 Glucose 126 H Calcium 9.2 Total Bilirubin 4.5 H Conjugated Bilirubin AST 364 H ALT 318 H Alkaline Phosphatase 125 H Total Protein 7.1 Albumin 3.6 Lipase Procalcitonin Urine Color Urine Clarity Urine pH Ur Specific [place] Urine Protein Urine Ketones Urine Blood Urine Nitrite Urine Bilirubin Urine Urobilinogen Ur Leukocyte Esterase Urine Glucose COVID-19 Source SARS-CoV-2 (PCR) 05/03/21 06:50 WBC RBC Hgb Hct MCV MCH MCHC RDW Plt Count MPV Immature Gran % Neutrophils % Lymphocytes % Monocytes % Eosinophils % Basophils % Nucleated RBC % Absolute Neutrophils Absolute Lymphocytes Absolute Monocytes Absolute Eosinophils Absolute Basophils VBG Lactate Sodium Potassium Chloride Carbon Dioxide Anion Gap BUN Creatinine Estimated GFR/1.73 m2 Glucose Calcium Total Bilirubin Conjugated Bilirubin AST ALT Alkaline Phosphatase Total Protein Albumin Lipase Procalcitonin 6.3 Urine Color Urine Clarity Urine pH Ur Specific [place] Urine Protein Urine Ketones Urine Blood Urine Nitrite Urine Bilirubin Urine Urobilinogen Ur Leukocyte Esterase Urine Glucose COVID-19 Source SARS-CoV-2 (PCR) Reviewed Pertinent PMH: Yes Objective Narrative Objective Narrative: EKG demonstrates SR rate 87 bpm w/ new RBBB and 1st degree AV block
[2021-05-03 18:24] LABS: ALT 258 U/L (16-63); AST 216 U/L (15-37); Albumin 3.4 g/dL (3.4-5.0); Alkaline Phosphatase 109 U/L (46-116); Anion Gap 15.9 mmol/L (3-11); BUN 32 mg/dL (7-18); Bilirubin, Direct 4.2 mg/dL (0.0-0.2); Bilirubin, Total 5.6 mg/dL (0.2-1.0); CO2 20.1 mmol/L (21.0-32.0); Calcium 8.6 mg/dL (8.5-10.1); Chloride 106 mmol/L (98-107); Estimated GFR 32.74 (mL/min/1.73m2); Glucose 111 mg/dL (74-106); NT-proBNP 1302 pg/mL (<300); Potassium 4.1 mmol/L (3.5-5.1); Sodium 142 mmol/L (136-145); Total Protein 6.9 g/dL (6.4-8.2)
--- NOTE | 2021-05-03 18:36 | DI.VRAD_ITS ---
PROCEDURE INFORMATION: Exam: XR Chest Exam date and time: 05/03/2021 5:29 PM Age: 76 years old Clinical indication: Other: Dyspnea TECHNIQUE: Imaging protocol: XR of the chest. Views: 1 view. COMPARISON: No relevant prior studies available. FINDINGS: Lungs: Patchy parenchymal aspect K antonio seen in the medial right lower lobe just inferior to hilar structures is suspicious for acute infiltrate. Pleural spaces: No pneumothorax or pleural effusion.. Heart/Mediastinum: Heart size is normal and asymmetric nodularity seen in the right hilar region could relate to underlying vascular structures although right hilar mass or adenopathy cannot be excluded. Bones/joints: No acute osseous lesions are detected. IMPRESSION: Suspected right infrahilar infiltrate with question of accompanying right hilar adenopathy. Dictated and Authenticated by: Tod Camara MD. [facility] Jesse Watts MD
[2021-05-03 18:38] LABS: Troponin I < 0.05 ng/mL (<0.06)
--- NOTE | 2021-05-03 18:39 | NUR.NOTE ---
AT 1620 Patient started to complain of severe 10/10 abdominal pain, dilaudid given 1mg at 1633. 17:05 , BUILDING MAINTENANCE WORKER reported to this RN that patient is having severe shaking, chills and complaining of having difficulty breathing. Charge Nurse, LUIS FERNANDO *2 and this RN in attendance , VS: T 36.5, HR 99, BP 186/94 RR 28 SPO2:89. Patient was placed on 2L of o2 sating 92% wheezing heard upon auscultation. 17:15 MD present. Following was given: Benadryl 50mg IV, Epinephrine 0.3 mg 2 doses, methylprednisolone 125mg and famotidine 20 mg. zosyn was discontinued. Patient was then transferred to the ICU for further management. Nursing report given to ERIKA Carrasquillo.
[2021-05-03] MEDS: Lidocaine 2% Jelly 6 ML SYR (18:43)
[2021-05-03 18:45] LABS: Lipase 5136 U/L (73-393)
[2021-05-03] MEDS: metroNIDAZOLE 1,000 MG/200 ML BAG 100 MG IVPB (19:35)
[2021-05-03] MEDS: metroNIDAZOLE 500 MG/100 ML BAG 100 MG IVPB (20:48)
[2021-05-03] MEDS: CIPROFLOXACIN 400 MG/200 ML BAG 200 MG IVPB (20:49)
[2021-05-03 22:21] LABS: Troponin I < 0.05 ng/mL (<0.06)
[2021-05-04] VITALS (25 sets, daily range): BP systolic 104–153; BP diastolic 57–83; PULSE 52–72; RESP 14–27; TEMP 36–37.2; O2SAT 92–98
[2021-05-04] MEDS: metroNIDAZOLE 500 MG/100 ML BAG 100 MG IVPB ×4 (02:27→19:50)
[2021-05-04] MEDS: Normal Saline 1,000 ML 150 ML IV (03:52)
[2021-05-04 06:49] LABS: Lactate 1.3 mmol/L (0.6-1.4)
[2021-05-04 06:54] LABS: Abs Immature Grans 0.72 10^3/uL (0.0-0.06); HCT 33.4 % (40.0-50.0); HGB 11.1 g/dL (13.5-17.5); MCH 32.1 pg (27.0-33.0); MCHC 33.2 % (32.0-36.0); MCV 96.5 fL (80-95); MPV 10.2 fL (8.0-11.0); Nucleated RBC 0 %; RBC 3.46 10^6/uL (4.36-5.78); RDW 13.2 % (11.8-14.1); RDW-SD 47.2 fL; WBC 9.69 10^3/uL (4.4-10.8)
[2021-05-04 07:13] LABS: ALT 197 U/L (16-63); AST 130 U/L (15-37); Albumin 3.1 g/dL (3.4-5.0); Alkaline Phosphatase 82 U/L (46-116); Anion Gap 13.5 mmol/L (3-11); BUN 31 mg/dL (7-18); Bilirubin, Direct 1.4 mg/dL (0.0-0.2); Bilirubin, Total 2.2 mg/dL (0.2-1.0); C-Reactive Protein 17.99 mg/dL (0.0-0.3); CO2 21.5 mmol/L (21.0-32.0); CREATININE 1.7 mg/dL (0.70-1.30); Calcium 8.2 mg/dL (8.5-10.1); Chloride 106 mmol/L (98-107); Estimated GFR 39.49 (mL/min/1.73m2); Glucose 193 mg/dL (74-106); Potassium 4.4 mmol/L (3.5-5.1); Sodium 141 mmol/L (136-145); Total Protein 6.7 g/dL (6.4-8.2)
[2021-05-04 07:28] LABS: Absolute Lymphocyte Count 0.48 10^3/uL (1.2-3.4); Absolute Monocyte Count 0.19 10^3/uL (0.1-0.8); Absolute Neutrophil Count 8.53 10^3/uL (1.2-6.7); Bands % 17; Metamyelocytes % 5
[2021-05-04 07:29] LABS: Diff Comment Manual Differential; Polychromasia Present
[2021-05-04 07:30] LABS: Platelet Count 133 10^3/uL (130-400)
[2021-05-04] MEDS: Isosorbide Mononitrate 30 MG TABCR 60 MG PO (08:51)
[2021-05-04] MEDS: CIPROFLOXACIN 400 MG/200 ML BAG 200 MG IVPB ×2 (08:53→21:17)
--- NOTE | 2021-05-04 09:21 | CMPROGNOTE_ITS ---
- If Service Date Differs Date of service: 05/04/21 Time of Service: 09:21 Care Management Progress Note S/O:Mando was sitting up in a chair when CM met with him. He was very pleasant and engaged readily with CM. Mando spoke about the excellent care he has received at [facility] from the ED, to Med-Surg and now ICU. He has recovered from the drug reaction he had yesterday and will likely be moved back to Med-Surg this afternoon. Per Mando, he has been told that he may have passed the stone but he will still go to [facility] on Thursday for the ERCP as recommended. A: Mando is a 76 year old man admitted on 05/03/21 with choledocholithiasis P: Mando is awaiting a down and back appointment at [facility] for an ERCP scheduled for 06/05/21. RN Rap Artist to schedule transportation. His Zarelto is being held over the weekend, he will remain at [facility] awaiting ERCP. CM continues to follow and assess for discharge planning needs..
--- NOTE | 2021-05-04 10:49 | W.PM.PROGNOT ---
Date of Service Date of service: 05/04/21 Time of Service: : Assessment and Plan Assessment and plan (1) Allergic reaction caused by a drug: Status: Acute Assessment and plan: Episode of acute dyspnea during infusion of Zosyn; yesterday. Given epinephrine, Benedryl and IV steroid. Resolved. Antibiotic coverage changed to Cipro and Flagyl Qualifiers: Encounter type: initial encounter Qualified Code(s): T78.40XA - Allergy, unspecified, initial encounter (2) Atrial fibrillation: Status: Chronic Assessment and plan: Hold AC d/t planned ERCP at [facility] on Thursday. Currently in sinus rhythm (3) Choledocholithiasis: Status: Acute Assessment and plan: Dilated CBD on initial CT abd. Total bilirubin down to 2.2 from 5.6. No further abd pain. Questionable passed gallstone that was obstructing. Aerobic blood culture bottle growing gram neg dexter; cont current antibiotic coverage with Cipro and Flagyl. Low fat diet. NPO after [place] on Thursday; ERCP planned for Thursday. Subjective Subjective Patient reports: no new complaints, feels better and afebrile; denies nausea, vomiting and shortness of breath Interval history since last seen: No abd pain overnight; no pain meds administered. No further dyspnea. He would like to eat. Exam Const General: cooperative and no acute distress Nutritional Appearance: obese Orientation: alert and oriented x3 Resp Effort & Inspection: normal respiratory effort Auscultation: clear to auscultation bilaterally Cardio Rate: regular rate Rhythm: regular rhythm Heart Sounds: S1 normal and S2 normal GI Inspection: other (protuberant) Palpation: soft and nontender Auscultation: normal bowel sounds Neuro General: no focal motor deficits Cognition: normal cognition Speech: speech normal Extrem General: no pedal edema and no calf tenderness Psych Appearance: grossly normal Mental Status: mental status grossly normal Affect: normal affect Objective Last Vital Signs Temp 36.8 C 05/04/21 08:02 Pulse 64 05/04/21 08:00 Resp 15 05/04/21 10:00 BP 126/76 05/04/21 08:00 Pulse Ox 98 05/04/21 08:02 Laboratory Results - last 24 hr 05/03/21 05/03/21 05/03/21 06:50 17:59 22:00 WBC RBC Hgb Hct MCV MCH MCHC RDW Plt Count MPV Immature Gran % Neutrophils % Band Neutrophils % Lymphocytes % Monocytes % Eosinophils % Basophils % Metamyelocytes % Nucleated RBC % Absolute Neutrophils Absolute Lymphocytes Absolute Monocytes Absolute Eosinophils Absolute Basophils RBC Morphology Polychromasia VBG Lactate Sodium 142 Potassium 4.1 Chloride 106 Carbon Dioxide 20.1 L Anion Gap 15.9 H BUN 32 H Creatinine 2.0 H Estimated GFR/1.73 m2 32.74 Glucose 111 H Calcium 8.6 Magnesium Total Bilirubin 5.6 H Conjugated Bilirubin 4.2 H AST 216 H ALT 258 H Alkaline Phosphatase 109 Troponin I < 0.05 < 0.05 C-Reactive Protein NT-Pro-B Natriuret Pep 1302 H Total Protein 6.9 Albumin 3.4 Lipase 5136 H Procalcitonin 6.3 05/04/21 05/04/21 05/04/21 06:40 06:40 06:40 WBC 9.69 RBC 3.46 L Hgb 11.1 L Hct 33.4 L MCV 96.5 H MCH 32.1 MCHC 33.2 RDW 13.2 Plt Count 133 MPV 10.2 Immature Gran % See Differential Neutrophils % 71.0 Band Neutrophils % 17 Lymphocytes % 5.0 Monocytes % 2.0 Eosinophils % 0.0 Basophils % 0.0 Metamyelocytes % 5 Nucleated RBC % 0 Absolute Neutrophils 8.53 H Absolute Lymphocytes 0.48 L Absolute Monocytes 0.19 Absolute Eosinophils 0.00 Absolute Basophils 0.00 RBC Morphology See below Polychromasia Present VBG Lactate 1.3 Sodium 141 Potassium 4.4 Chloride 106 Carbon Dioxide 21.5 Anion Gap 13.5 H BUN 31 H Creatinine 1.7 H Estimated GFR/1.73 m2 39.49 Glucose 193 H D Calcium 8.2 L Magnesium Total Bilirubin 2.2 H Conjugated Bilirubin 1.4 H AST 130 H ALT 197 H Alkaline Phosphatase 82 Troponin I C-Reactive Protein 17.99 H NT-Pro-B Natriuret Pep Total Protein 6.7 Albumin 3.1 L Lipase Procalcitonin 05/04/21 06:40 WBC RBC Hgb Hct MCV MCH MCHC RDW Plt Count MPV Immature Gran % Neutrophils % Band Neutrophils % Lymphocytes % Monocytes % Eosinophils % Basophils % Metamyelocytes % Nucleated RBC % Absolute Neutrophils Absolute Lymphocytes Absolute Monocytes Absolute Eosinophils Absolute Basophils RBC Morphology Polychromasia VBG Lactate Sodium Potassium Chloride Carbon Dioxide Anion Gap BUN Creatinine Estimated GFR/1.73 m2 Glucose Calcium Magnesium 2.0 Total Bilirubin Conjugated Bilirubin AST ALT Alkaline Phosphatase Troponin I C-Reactive Protein NT-Pro-B Natriuret Pep Total Protein Albumin Lipase Procalcitonin
[2021-05-04] MEDS: Normal Saline 500 ML 30 ML IV (13:46)
[2021-05-04] MEDS: Normal Saline Flush 10 ML SYR IVP (19:51)
[2021-05-05] VITALS (8 sets, daily range): BP systolic 138–159; BP diastolic 75–92; PULSE 55–63; RESP 17–20; TEMP 35.6–36.7; O2SAT 96–97
[2021-05-05] MEDS: metroNIDAZOLE 500 MG/100 ML BAG 100 MG IVPB ×4 (01:42→19:28)
[2021-05-05 06:47] LABS: Abs Immature Grans 0.38 10^3/uL (0.0-0.06); Absolute Basophil Count 0.01 10^3/uL (0.0-0.2); Absolute Eosinophil Count 0.01 10^3/uL (0.0-0.7); Absolute Lymphocyte Count 0.96 10^3/uL (1.2-3.4); Basophils % 0.1; Eosinophils % 0.1; HCT 31.7 % (40.0-50.0); HGB 10.8 g/dL (13.5-17.5); Immature Grans % 3.5; Lymphocytes % 8.9; MCH 31.9 pg (27.0-33.0); MCHC 34.1 % (32.0-36.0); MCV 93.5 fL (80-95); MPV 11.1 fL (8.0-11.0); Monocytes % 7.9; Neutrophils % 79.5; Nucleated RBC 0 %; Platelet Count 153 10^3/uL (130-400); RBC 3.39 10^6/uL (4.36-5.78); RDW 13.1 % (11.8-14.1); RDW-SD 45.1 fL; WBC 10.82 10^3/uL (4.4-10.8)
[2021-05-05 06:49] LABS: Absolute Monocyte Count 0.85 10^3/uL (0.1-0.8)
[2021-05-05 07:02] LABS: ALT 131 U/L (16-63); AST 50 U/L (15-37); Albumin 2.9 g/dL (3.4-5.0); Alkaline Phosphatase 73 U/L (46-116); Anion Gap 12.4 mmol/L (3-11); BUN 42 mg/dL (7-18); Bilirubin, Total 0.8 mg/dL (0.2-1.0); CO2 20.6 mmol/L (21.0-32.0); CREATININE 1.4 mg/dL (0.70-1.30); Calcium 8.4 mg/dL (8.5-10.1); Chloride 108 mmol/L (98-107); Estimated GFR 49.41 (mL/min/1.73m2); Glucose 150 mg/dL (74-106); Potassium 4.2 mmol/L (3.5-5.1); Sodium 141 mmol/L (136-145); Total Protein 6.6 g/dL (6.4-8.2)
[2021-05-05] MEDS: Isosorbide Mononitrate 30 MG TABCR 60 MG PO (08:19)
--- NOTE | 2021-05-05 08:22 | CMPROGNOTE_ITS ---
- If Service Date Differs Date of service: 05/05/21 Time of Service: 08:22 Care Management Progress Note S/O:No change in plan. Mando was sitting up in a chair when CM met with him. He was very pleasant and engaged readily with CM. Mando was able to be moved out of the ICU yesterday afternoon. He again spoke about the excellent care he has received at [facility] . His partner was a nurse in [place] for [place] years and worked at a small [facility] hospital. She also has verbalized that he is receiving ex celllent care. Per Mando, he has been told that he may have passed the stone but he will still go [place] [facility] [place] as recommended. A: Mando is a 76 year old man admitted on 05/03/21 with choledocholithiasis P: Mando is awaiting a down and back appointment at [facility] [place] scheduled for 06/05/21. RN Change Attendant to schedule transportation. His Zarelto is being held over the weekend, he will remain at [facility] awaiting ERCP. CM continues to follow and assess for discharge planning needs..
--- NOTE | 2021-05-05 08:22 | PDOC.CMPRO ---
- If Service Date Differs Date of service: 05/05/21 Time of Service: 08:22 Care Management Progress Note S/O:No change in plan. Mando was sitting up in a chair when CM met with him. He was very pleasant and engaged readily with CM. Mando was able to be moved out of the ICU yesterday afternoon. He again spoke about the excellent care he has received at [facility] . His partner was a nurse in [place] for 47 years and worked at a small [facility] hospital. She also has verbalized that he is receiving excelllent care. Per Mando, he has been told that he may have passed the stone but he will still go to [facility] on Thursday for the ERCP as recommended. A: Mando is a 76 year old man admitted on 05/03/21 with choledocholithiasis P: Mando is awaiting a down and back appointment at [facility] for an ERCP scheduled for 06/05/21. RN Cokeman to schedule transportation. His Zarelto is being held over the weekend, he will remain at [facility] awaiting ERCP. CM continues to follow and assess for discharge planning needs..
[2021-05-05 08:47] LABS: Procalcitonin 2.3 ng/mL
[2021-05-05] MEDS: CIPROFLOXACIN 400 MG/200 ML BAG 200 MG IVPB ×2 (09:35→21:05)
--- NOTE | 2021-05-05 10:37 | W.PM.PROGNOT ---
Date of Service Date of service: 05/05/21 Time of Service: 08:53 Assessment and Plan Assessment and plan (1) Allergic reaction caused by a drug: Status: Acute Assessment and plan: Dyspnea and wheezing during an infusion of Zosyn. Now considering him to have a PCN allergy. Reaction resolved. Qualifiers: Encounter type: initial encounter Qualified Code(s): T78.40XA - Allergy, unspecified, initial encounter (2) Atrial fibrillation: Status: Chronic Assessment and plan: Has been in sinus rhythm. His metoprolol has been held and IV lopressor was initiated while NPO. Stop IV lopressor and restart oral metoprolol. Holding Eliquis for ERCP sched for tomorrow. (3) Choledocholithiasis: Status: Acute Assessment and plan: Bilirubin and LFTs continue to improve. Bili now 1.4. Likely passed a gallstone. [place] [facility] [place]. NPO after MN. Subjective Subjective Patient reports: no new complaints, feels better, tolerating a regular diet and afebrile; denies nausea, vomiting and shortness of breath Exam Const General: cooperative and no acute distress Nutritional Appearance: obese Orientation: alert and oriented x3 Resp Effort & Inspection: normal respiratory effort Auscultation: clear to auscultation bilaterally Cardio Rate: regular rate Rhythm: regular rhythm Heart Sounds: S1 normal and S2 normal GI Palpation: soft and nontender Extrem General: no pedal edema and no calf tenderness Objective Last Vital Signs Temp 36.7 C 05/05/21 07:15 Pulse 63 05/05/21 07:15 Resp 18 05/05/21 07:15 BP 140/87 05/05/21 07:15 Pulse Ox 97 05/05/21 07:15 Laboratory Results - last 24 hr 05/05/21 05/05/21 05/05/21 06:01 06:01 06:01 WBC 10.82 H RBC 3.39 L Hgb 10.8 L Hct 31.7 L MCV 93.5 D MCH 31.9 MCHC 34.1 RDW 13.1 Plt Count 153 MPV 11.1 H Immature Gran % 3.5 Neutrophils % 79.5 Lymphocytes % 8.9 Monocytes % 7.9 Eosinophils % 0.1 Basophils % 0.1 Nucleated RBC % 0 Absolute Neutrophils 8.60 H Absolute Lymphocytes 0.96 L Absolute Monocytes 0.85 H Absolute Eosinophils 0.01 Absolute Basophils 0.01 Sodium 141 Potassium 4.2 Chloride 108 H Carbon Dioxide 20.6 L Anion Gap 12.4 H BUN 42 H D Creatinine 1.4 H Estimated GFR/1.73 m2 49.41 Glucose 150 H Calcium 8.4 L Total Bilirubin 0.8 AST 50 H ALT 131 H Alkaline Phosphatase 73 Total Protein 6.6 Albumin 2.9 L Procalcitonin 2.3
[2021-05-05] MEDS: Atorvastatin 40 MG TAB PO (19:28)
[2021-05-05] MEDS: Normal Saline Flush 10 ML SYR IVP (19:29)
[2021-05-05] MEDS: Tamsulosin 0.4 MG CAPCR 0.8 MG PO (21:04)
[2021-05-06] MEDS: metroNIDAZOLE 500 MG/100 ML BAG 100 MG IVPB ×3 (01:12→19:13)
[2021-05-06 06:44] LABS: Abs Immature Grans 0.13 10^3/uL (0.0-0.06); Absolute Basophil Count 0.02 10^3/uL (0.0-0.2); Absolute Eosinophil Count 0.01 10^3/uL (0.0-0.7); Absolute Lymphocyte Count 1.41 10^3/uL (1.2-3.4); Absolute Monocyte Count 0.68 10^3/uL (0.1-0.8); Absolute Neutrophil Count 5.61 10^3/uL (1.2-6.7); Basophils % 0.3; Eosinophils % 0.1; HCT 33.8 % (40.0-50.0); HGB 11.5 g/dL (13.5-17.5); Immature Grans % 1.7; Lymphocytes % 17.9; MCH 32.3 pg (27.0-33.0); MCV 94.9 fL (80-95); MPV 10.7 fL (8.0-11.0); Monocytes % 8.7; Neutrophils % 71.3; Nucleated RBC 0 %; Platelet Count 158 10^3/uL (130-400); RBC 3.56 10^6/uL (4.36-5.78); RDW 13.1 % (11.8-14.1); RDW-SD 45.8 fL; WBC 7.86 10^3/uL (4.4-10.8)
[2021-05-06 07:04] LABS: ALT 100 U/L (16-63); AST 34 U/L (15-37); Albumin 2.9 g/dL (3.4-5.0); Alkaline Phosphatase 73 U/L (46-116); Anion Gap 11.1 mmol/L (3-11); BUN 35 mg/dL (7-18); Bilirubin, Total 0.8 mg/dL (0.2-1.0); CO2 21.9 mmol/L (21.0-32.0); CREATININE 1.3 mg/dL (0.70-1.30); Calcium 8.5 mg/dL (8.5-10.1); Chloride 110 mmol/L (98-107); Estimated GFR 53.82 (mL/min/1.73m2); Glucose 109 mg/dL (74-106); Potassium 4.2 mmol/L (3.5-5.1); Sodium 143 mmol/L (136-145); Total Protein 6.5 g/dL (6.4-8.2)
[2021-05-06 07:21] VITALS: BP 130/89; PULSE 64; RESP 14; TEMP 36.3; O2SAT 94
[2021-05-06] MEDS: Lisinopril 5 MG TAB PO (07:59)
[2021-05-06] MEDS: Isosorbide Mononitrate 30 MG TABCR 60 MG PO (07:59)
[2021-05-06] MEDS: Normal Saline Flush 10 ML SYR IVP (08:00)
[2021-05-06] MEDS: Metoprolol CR 100 MG TABCR PO (08:00)
[2021-05-06] MEDS: CIPROFLOXACIN 400 MG/200 ML BAG 200 MG IVPB ×2 (09:20→20:29)
--- NOTE | 2021-05-06 13:40 | PDOC.CMPRO ---
Care Management Progress Note S/O: No change in plan. Mando attended the down and back appointment at [facility] [place] [place] for an ERCP scheduled for today. CM continues to follow. A: Mando is a 76 year old man admitted on 05/03/21 with choledocholithiasis P: Mando attended down and back appointment at [facility] for an ERCP scheduled for today, 06/05/21. CM continues to follow and assess for discharge planning needs.
--- NOTE | 2021-05-06 15:26 | DSE_ITS ---
DS: Diagnosis Discharge Diagnosis (1) Allergic reaction caused by a drug: Status: Acute (2) Atrial fibrillation: Status: Chronic (3) Choledocholithiasis: Status: Acute Discharge Plan Disposition Patient Disposition: HOME Condition: Good Discharge Details Reason For Visit: Choledocholithiasis Admit Date/Time: 05/03/21 02:30 Admit Provider: Yandel Martinez Attending Provider: Yandel Martinez Primary Care Provider: Unknown,Unknown Hospital Course Hospital Course: This 76-year-old male came to the emergency department because of abdominal pain. He has had abdominal pain on and off for years. He says in the last year he has had some difficulty with dysphagia and it is worse with eating meats such as chicken. He says if he does not chew the chicken completely he can feel like he gets clogged and was epigastrium and chest. Yesterday he had some eggs for breakfast and began having vomiting and nausea. He vomited about 3 times. He came to emergency room for evaluation. Evaluation in the emergency department showed elevated liver function tests and dilated common bile duct. [facility] was consulted and arrangements were made for him to go today for an ERCP. He feels comfortable at this time because of the narcotic pain meds. He lives here 3 weeks out of every month. His home with his female partner is in [facility]. He gets most of his care there. He has been treated with radiation for prostate cancer and had a partial nephrectomy for renal cancer. He has a ventral hernia. He was treated about a year ago for hematuria which he stated was due to his radiation treatment for the prostate cancer. He received both of his coronavirus vaccines. 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 He has not had pain as severe as this in the past. His presenting WBC count was normal. Bilirubin elevated at 4.5. AST 442. ALT 281. His CT abd/pelvis showed a dilated CBD at 1.2cm. No gall stones noted. Zosyn was initiated on admission d/t elevated lactate. The day after admission he had acute episode of dyspnea/flash pulmonary edema d/t PCN reaction to Zosyn. Patient improved after epinephrine, oxygen and benadryl. Because he is showing signs of developing sepsis from his acute CBD obstruction, he still needs antibiotics. I have discussed his case w/ Dr. Bateman who will be taking over. Patient placed on Cipro and Flagyl and we will get blood cultures. His dyspnea and wheezing cleared readily. His abdominal pain subsided. His Bilirubin normalized and his LFTs trended toward normal. ERCP at [facility] [place] performed. No stone in the biliary system detected. Home Meds and New Rx's Prescriptions: Continued atorvastatin 80 mg Tablet 80 mg PO QPM RF: 0 metoprolol tartrate 100 mg Tablet 125 mg PO DAILY RF: 0 isosorbide mononitrate 60 mg Tablet Extended Release 24 Hr 60 mg PO DAILY RF: 0 tamsulosin 0.4 mg Capsule 0.8 mg PO HS RF: 0 amitriptyline 10 mg Tablet 10 mg PO DAILY RF: 0 furosemide 20 mg Tablet 20 mg PO Q OTHER DAY RF: 0 piroxicam 20 mg Capsule 20 mg PO DAILY RF: 0 ascorbic acid (vitamin C) [Vitamin C] 1,000 mg Tablet 1,000 mg PO DAILY RF: 0 aspirin 81 mg Tablet 81 mg PO DAILY RF: 0 lisinopril 5 mg Tablet 5 mg PO DAILY RF: 0 multivitamin Capsule 1 cap PO DAILY RF: 0 vitamin D3-vitamin K2 5,500-200 unit-mcg Tablet 1 tab PO DAILY RF: 0 magnesium oxide 400 MG tablet 400 mg PO DAILY RF: 0 Xarelto 20 mg Tablet 20 mg PO QPM Qty: 0 RF: 0 No Action tramadol 50 MG tablet 50 mg PO QID PRN PRNQty: 30 RF: 0 Discharge Instructions Stand Alone Forms: Nursing Discharge Form Referrals: John Bob [ [facility] STAFF PHYSICIAN] - 05/17/21 11:00 am (this is for a follow up acute appt if you want to establish care here, call them and they will assist you with paperwork ) Activity:: Activity as Tolerated Equipment/Supplies:: No Equipment Needed Diet:: Heart Healthy Discharge Orders Discharge Orders: Discharge Order (Routine); Ordered 05/07/21 Ordered By: Ned Bateman DS: Summary Time Spent with Patient providing and/or coordinating discharge services: Greater than 30 minutes Status at Discharge Functional status at discharge: independent ambulation Overall status at discharge: patient is back to baseline Mental Status: mental status grossly normal Speech and Movement: speech and movement normal Mood: congruent mood Affect: normal affect Exam Psych Mental Status: mental status grossly normal Speech and Movement: speech and movement normal Mood: congruent mood Affect: normal affect DS: Data Vitals/I&O Vitals and I&O: Vital Signs Temperature 36.3 C L 05/06/21 07:21 Temperature Source Temporal Artery Scan 05/06/21 07:21 Pulse 64 05/06/21 07:21 Pulse Rhythm Regular 05/06/21 09:00 Pulse 58 L 05/04/21 13:00 Respiratory Rate 14 05/06/21 07:21 Respiratory Effort Non-Labored 05/06/21 09:00 Respiratory Depth Normal 05/06/21 09:00 Respiratory Pattern Normal 05/06/21 09:00 Blood Pressure 130/89 05/06/21 07:21 Blood Pressure Mean 78 05/04/21 11:14 Blood Pressure Position Supine 05/04/21 03:56 Pulse Oximetry 94 05/06/21 07:21 Oxygen Delivery Method Room Air 05/06/21 07:21 Oxygen Flow Rate 0 05/06/21 07:21 Pain Level 0 05/06/21 07:21 Comment 05/05/21 02:16 Intake & Output 05/05/21 05/06/21 05/06/21 23:59 11:59 23:59 Intake Total 760 / 1450 300 / 300 Output Total 750 / 2400 1000 / 1000 Balance 10 / -950 -700 / -700 Weight 133.6 kg Intake: IV 400 / 810 300 / 300 Oral 360 / 640 Output: Urine 750 / 2400 1000 / 1000 Other: Urine Color Light Regi Yellow Urine Appearance Clear Clear Urine Odor Normal Normal Voiding Methods Toilet Toilet Data Completed and Pending Labs on day of discharge: Labs from last 24 hours 05/06/21 05/06/21 06:01 06:01 WBC 7.86 RBC 3.56 L Hgb 11.5 L Hct 33.8 L MCV 94.9 MCH 32.3 MCHC 34.0 RDW 13.1 Plt Count 158 MPV 10.7 Immature Gran % 1.7 Neutrophils % 71.3 Lymphocytes % 17.9 Monocytes % 8.7 Eosinophils % 0.1 Basophils % 0.3 Nucleated RBC % 0 Absolute Neutrophils 5.61 Absolute Lymphocytes 1.41 Absolute Monocytes 0.68 Absolute Eosinophils 0.01 Absolute Basophils 0.02 Sodium 143 Potassium 4.2 Chloride 110 H Carbon Dioxide 21.9 Anion Gap 11.1 H BUN 35 H Creatinine 1.3 Estimated GFR/1.73 m2 53.82 Glucose 109 H Calcium 8.5 Total Bilirubin 0.8 AST 34 ALT 100 H Alkaline Phosphatase 73 Total Protein 6.5 Albumin 2.9 L Preliminary micro results at discharge 05/03/21 19:03 Blood Culture - Preliminary Blood Escherichia coli 05/03/21 19:13 Blood Culture - Preliminary Blood NO GROWTH 48 HOURS PFSH Medical History Chronic anticoagulation Kidney malignancy Prostate cancer Ventral hernia Surgical History History of cardiac catheterization Social History Smoking/Tobacco Use Status: Never Smoking risk assessment performed?: Yes Alcohol Intake: current Alcohol Intake frequency: a few times a week Drug use: Never Substance use type: does not use Do you feel safe at home: Yes Do you feel safe in your relationship?: Yes
[2021-05-06 16:00] VITALS: BP 148/70; PULSE 60; RESP 18; TEMP 36.5; O2SAT 98
[2021-05-06 17:12] VITALS: BP 150/74; PULSE 55; RESP 17; TEMP 36.2; O2SAT 97
[2021-05-06] MEDS: Atorvastatin 40 MG TAB PO (19:13)
[2021-05-06] MEDS: Normal Saline 500 ML 30 ML IV (19:16)
[2021-05-06] MEDS: Normal Saline 1,000 ML 80 ML IV ×2 (22:12→22:16)
[2021-05-06] MEDS: Tamsulosin 0.4 MG CAPCR 0.8 MG PO (22:12)
[2021-05-06 23:27] VITALS: BP 173/89; PULSE 60; RESP 18; TEMP 36.5; O2SAT 96
[2021-05-07] MEDS: metroNIDAZOLE 500 MG/100 ML BAG 100 MG IVPB ×2 (02:00→09:45)
[2021-05-07 07:15] VITALS: BP 145/83; PULSE 61; RESP 18; TEMP 36.1; O2SAT 97
[2021-05-07] MEDS: Isosorbide Mononitrate 30 MG TABCR 60 MG PO (07:56)
[2021-05-07] MEDS: Metoprolol CR 100 MG TABCR PO (07:56)
[2021-05-07] MEDS: Lisinopril 5 MG TAB PO (07:56)
[2021-05-07] MEDS: CIPROFLOXACIN 400 MG/200 ML BAG 200 MG IVPB (07:57)
[2021-05-07 10:55] VITALS: BP 135/78; PULSE 57
--- NOTE | 2021-05-07 15:28 | PDOC.CMDIS ---
LACE Index Scoring Tool - Questions: Length of Stay (in days): 4 - 6 Acuity (Admit via E.D.?): Yes Comorbidities: Any Tumor E.D. Visits: 1 - Answers: Total Score: 10 Risk of Readmission: High Risk Care Management Discharge Reason for Hospitalization: Choledocholithiasis Discharge Plan: Mando will return home when ready per MD. No additional services anticipated. Mando will transport via private vehicle with a friend. Patient/Family Education Needs: Review discharge instructions, discuss Ask Me Three.
== END 2021-05-07 11:04 | disposition home or self-care (01) | DRG 445 ==
LOC: ER 05-03 02:42 → MS 05-03 03:16 → ICU 05-03 17:45 → MS 05-04 13:23
PROVIDERS: Family Medicine; Internal Medicine; Physician Assistant; Admitting Provider Family Medicine; Emergency Provider Student in an Organized Health Care Education/Training Program; Visit Provider Family Medicine
DX: K80.51 Calculus of bile duct without cholangitis or cholecystitis with obstruction (principal); Z68.41 Body mass index [BMI] 40.0-44.9, adult; I48.20 Chronic atrial fibrillation, unspecified; Z90.5 Acquired absence of kidney; Z85.528 Personal history of other malignant neoplasm of kidney; Z85.46 Personal history of malignant neoplasm of prostate; Z79.01 Long term (current) use of anticoagulants; K43.9 Ventral hernia without obstruction or gangrene; Z20.822 Contact with and (suspected) exposure to COVID-19; E66.9 Obesity, unspecified; J70.2 Acute drug-induced interstitial lung disorders; T36.0X5A Adverse effect of penicillins, initial encounter; Y92.239 Unspecified place in hospital as the place of occurrence of the external cause
CPT/HCPCS: 36410; 36415; 43262; 80048; 80053; 80076; 83690; 84145; 87040; 87077; 87635; 96361; 96374; 96375; 96376; 99285; 71045; 74177; 81003; 82248; 83605; 83735; 83880; 84484; 85025; 86140; 87186; 93005; 93010; 99222; 99232; 99233; 99239; 99284; 99291; A0425; A0428; A0429; J0171; J0744; J1200; J2405; J2543; J2930; J3490

== ENCOUNTER 2024-04-19 07:29 | Inpatient (IN) | payer MEDICARE, SELFPAY ==
[2024-04-19] VITALS (85 sets, daily range): BP systolic 125–158; BP diastolic 64–103; PULSE 79–125; RESP 18–33; TEMP 36.7–38.3; O2SAT 87–99
--- NOTE | 2024-04-19 07:00 | RT.EKG_ITS ---
APPROVED REPORT Exam: Resting ECG Reason for Exam: Chest Pain Patient Location: E HR:107 bpm ECG Measurements Heart Rate 107 AXIS [place] [id number] P [id number] QRSd 143 QRS 52 QT 374 T -40 QTc 499 Conclusion Atrial fibrillation 107 RBBB no change from prior no stemi
--- NOTE | 2024-04-19 07:00 | DI.RAD_ITS ---
Exam(s) XR PORTABLE CHEST AP EXAM: XR PORTABLE CHEST AP CLINICAL HISTORY: chest pain TECHNIQUE: 2D digital imaging was performed of the chest. One image was obtained. An AP view was ob tained. COMPARISON: CR,XR XR PORTABLE CHEST AP from 05/03/2021 FINDINGS: MEDIASTINUM: Normal. HEART: Normal. PULMONARY VASCULATURE: Normal. LUNGS: Clear. PLEURAL SPACE: No pleural effusion or pneumothorax. BONE:Within normal limits for the patient's age. OTHER FINDINGS:Normal. IMPRESSION: No acute pulmonary findings. DATA REPOSITORY: RADIATION DOSE DELIVERED:
--- NOTE | 2024-04-19 07:15 | ED.GENADUL_ITS ---
Discharge Plan Discharge Details Chief Complaint: Chest Pain Primary Care Provider: Unknown,Unknown ED Provider: Juan Daniel Sanford Home Meds and New Rx's Prescriptions: No Action lupion melatonin 10 mg capsule 10 mg PO HS PRN atorvastatin 80 mg Tablet 80 mg PO QPM metoprolol tartrate 100 mg Tablet 125 mg PO DAILY isosorbide mononitrate 60 mg Tablet Extended Release 24 Hr 60 mg PO DAILY tamsulosin 0.4 mg Capsule 0.8 mg PO HS amitriptyline 10 mg Tablet 20 mg PO ONCE furosemide 20 mg Tablet 20 mg PO Q OTHER DAY ascorbic acid (vitamin C) [Vitamin C] 1,000 mg Tablet 1,000 mg PO DAILY aspirin 81 mg Tablet 81 mg PO DAILY lisinopril 5 mg Tablet 5 mg PO DAILY multivitamin Capsule 1 cap PO DAILY vitamin D3-vitamin K2 5,500-200 unit-mcg Tablet 1 tab PO DAILY magnesium oxide 400 mg (241.3 mg magnesium) tablet 400 mg PO BID HPI General Date/Time Provider Initiated Documentation: 04/19/24 08:04 . Limitations to Documentation: no limitations . Information obtained by: patient . HPI Narrative: 79-year-old gentleman brought in by ambulance for evaluation of chest pain. Patient has medical history including A-fib, hyperlipidemia, hypertension, malignancy. He reports that over the last week he has been having intermittent chest pain, described as sharp left-sided, radiating down his left arm. This is been intermittent, no exacerbating or relieving factors. Is been very mild. He reports that this is also been associated with lower extremity swelling. He reports that this morning he bent over, got very lightheaded and reported having severe, 10 out of 10 left-sided chest pain radiating down his right arm. He tried sleeping it off, but this did not resolve his symptoms. He reports that this prompted him to call an ambulance. He was given a full dose of aspirin as well as 3 doses of sublingual nitroglycerin. He reports that his chest pain is now 3 out of 10 after the nitroglycerin. He denies any shortness of breath at this time. He reports compliance with his medication. He reports that 3 weeks ago he was supposed to get a Watchman procedure, but they aborted the procedure when they did not have the appropriate equipment Related Data Home Medications Medication Instructions Recorded Confirmed amitriptyline 10 mg tablet 20 mg PO ONCE 05/02/21 04/19/24 atorvastatin 80 mg tablet 80 mg PO QPM 05/02/21 04/19/24 furosemide 20 mg tablet 20 mg PO Q OTHER DAY 05/02/21 04/19/24 isosorbide mononitrate 60 mg 60 mg PO DAILY 05/02/21 04/19/24 tablet,extended release 24 hr metoprolol tartrate 100 mg tablet 125 mg PO DAILY 05/02/21 04/19/24 tamsulosin 0.4 mg capsule 0.8 mg PO HS 05/02/21 04/19/24 ascorbic acid (vitamin C) 1,000 mg 1,000 mg PO DAILY 05/03/21 04/19/24 tablet (Vitamin C) aspirin 81 mg tablet 81 mg PO DAILY 05/03/21 04/19/24 cholecalciferol (vit D3) 137.5 mcg 1 tab PO DAILY 05/03/21 04/19/24 (5,500 unit)-vit K2 200 mcg tablet lisinopril 5 mg tablet 5 mg PO DAILY 05/03/21 04/19/24 multivitamin 1 cap PO DAILY 05/03/21 04/19/24 magnesium oxide 400 mg (241.3 mg 400 mg PO BID 05/17/21 04/19/24 magnesium) tablet lupion 04/19/24 melatonin 10 mg capsule 10 mg PO HS PRN 04/19/24 04/19/24 Allergies Allergy/AdvReac Type Severity Reaction Status Date / Time piperacillin [From Zosyn] Allergy Severe Anaphylaxis Unverified 04/19/24 07:36 tazobactam [From Zosyn] Allergy Severe Anaphylaxis Unverified 04/19/24 07:36 General VIRIDIANA: 3 Exam Narrative Exam Narrative: Review of Systems: All systems reviewed & are unremarkable except as noted in HPI and below Well-developed, no acute distress NCAT PERRL, normal conjunctiva Irregularly irregular, rate controlled, no significant hypotension No chest wall tenderness Unlabored respiratory effort, no hypoxia, no tachypnea, crackles at bases Nondistended abdomen ,, ventral hernia, reducible, soft, nontender Extremities w/o deformity, no cyanosis Trace pedal No rashes or lesions. no focal neurologic deficits Appropriate mood and affect Medical Decision Making Emergent evaluation of acute severe chest pain. Patient does have history of A- fib and is currently anticoagulated. He was brought in by ambulance and has been given aspirin and nitroglycerin prior to arrival. The nitroglycerin did improve his chest pain symptoms. The chest pain is nonexertional. It is not replicated. It is been ongoing for approximately a week without any acute ischemic EKG changes. Initial differential includes ACS, cardiac dysrhythmia, unlikely pulmonary embolism given current anticoagulation status. I have reviewed the patient's medical record and reviewed cannot find an echo for review. Initial plan for lab work, chest pain control and likely admission given his high risk chest pain. The patient's atrial fibrillation at this point is rate controlled and does not require rate controlling medication at this time, will continue close telemetry monitoring. 0805 Chest x-ray reviewed and independently interpreted: No significant cardiomegaly or pulmonary edema noted. Patient redeveloped significant 10 out of 10 chest pain after 3 doses of nitroglycerin administered in the emergency department, his chest pain is down to 1. Then he stood up to urinate and says that the pain got worse. This chest pain does seem to be very positional. 0945 Patient has remained chest pain-free. His repeat EKG does not demonstrate dynamic changes. Serial troponin pending. Given his recurrent chest pain, and his BNP that is over 3000 without echo to review, I feel the patient requires hospitalization for diuresis. His diuresis is complicated by an elevated creatinine. He is on 20 mg of Lasix every other day, but this dosing likely needs to be adjusted. I have initiated diuresis in the emergency department with 80 mg of IV Lasix. The patient was discussed with the hospitalist and the patient will be admitted for further monitoring, cardiac evaluation diuresis and echocardiogram. Medical Records Medical records reviewed: Yes I reviewed the patient's medical records. Lab Data Lab results reviewed: Yes I reviewed the patient's lab results. Quality:[facility] Health Related Social Needs: No Data to Display PFSH All Active Problems (Updated 04/19/24 @ 10:02 by Sandy Jones NP) Chest pain (Acute) Heart failure (Acute) Fatigue (Acute) Allergic reaction caused by a drug (Acute) Atrial fibrillation (Chronic) Abdominal pain (Acute) Choledocholithiasis (Acute) Medical History Ventral hernia 2017- repaired Chronic anticoagulation a fib Prostate cancer 2017 Radiation, follows with urology (Dr. Kinsey) Kidney malignancy 2017- removed part of kidney, left- sees urology in [place] (Dr. Kinsey) Surgical History S/P rotator cuff repair around 2009- bilateral shoulders History of kidney surgery 2017, left 1/3 removed H/O ventral hernia repair History of cardiac catheterization unsure of date Social History Smoking/Tobacco Use Status: Never Smoking risk assessment performed?: Yes Alcohol Intake: current Alcohol Intake frequency: a few times a week Drug use: Never Substance use type: does not use Do you feel safe at home: Yes Do you feel safe in your relationship?: Yes
[2024-04-19] MEDS: nitroGLYcerin 0.4 MG TAB SL ×3 (07:34→07:47)
[2024-04-19 07:45] LABS: Abs Immature Grans 0.04 10^3/uL (0.0-0.06); Absolute Basophil Count 0.02 10^3/uL (0.0-0.2); Absolute Eosinophil Count 0.19 10^3/uL (0.0-0.7); Absolute Lymphocyte Count 1.15 10^3/uL (1.2-3.4); Absolute Monocyte Count 0.93 10^3/uL (0.1-0.8); Absolute Neutrophil Count 4.53 10^3/uL (1.2-6.7); Basophils % 0.3 %; Eosinophils % 2.8 %; HCT 33.6 % (40.0-50.0); Immature Grans % 0.6 %; Lymphocytes % 16.8 %; MCH 31.5 pg (27.0-33.0); MCHC 32.7 % (32.0-36.0); MCV 96 fL (80-95); MPV 9.6 fL (8.0-11.0); Monocytes % 13.6 %; Neutrophils % 65.9 %; Platelet Count 147 10^3/uL (130-400); RBC 3.49 10^6/uL (4.36-5.78); RDW-SD 51.9 fL; WBC 6.86 10^3/uL (4.4-10.8)
[2024-04-19 08:03] LABS: PTT Activated 24.5 sec (23.6-32.8); Prothrombin Time 9.9 sec (9.1-11.1)
[2024-04-19 08:17] LABS: ALT 27 U/L (16-63); AST 22 U/L (15-37); Albumin 3.5 g/dL (3.4-5.0); Alkaline Phosphatase 122 U/L (46-116); Anion Gap 12.4 mmol/L (3-11); BUN 30 mg/dL (7-18); Bilirubin, Total 0.6 mg/dL (0.2-1.0); CO2 23.6 mmol/L (21.0-32.0); CREATININE 1.7 mg/dL (0.70-1.30); Calcium 8.9 mg/dL (8.5-10.1); Chloride 108 mmol/L (98-107); Estimated GFR 40.75 (mL/min/1.73m2); Glucose 135 mg/dL (74-106); Magnesium 1.7 mg/dL (1.8-2.4); NT-proBNP 3219 pg/mL (<300); Potassium 4.5 mmol/L (3.5-5.1); Sodium 144 mmol/L (136-145); Total Protein 7.3 g/dL (6.4-8.2); Troponin I < 50 ng/L (< or =60)
--- NOTE | 2024-04-19 08:45 | RT.EKG_ITS ---
APPROVED REPORT Exam: Resting ECG Reason for Exam: chest pain Patient Location: E HR:101 bpm ECG Measurements Heart Rate 101 AXIS [place] [id number] P [id number] QRSd 148 QRS 50 QT 390 T -46 QTc 505 Conclusion Atrial fibrillation 101 RBBB
[2024-04-19] MEDS: Furosemide 100 MG/10 ML VIAL 80 MG IVP (09:53)
--- NOTE | 2024-04-19 10:01 | HPE_ITS ---
Date of service: 04/19/24 Time of Service: 10:01 Assessment and Plan Assessment and plan (1) Chest pain: Status: Acute Assessment and plan: relieved by nitro and high likelihood d/t anginal symptoms. cardiac cath in 2016 demonstrated diffuse moderate to severe distal RCA disease Admitted to the medical surgical unit on telemetry Will cycle troponin Continue isosorbide mononitrate (2) Heart failure: Status: Acute Assessment and plan: History of right ventricular dysfunction Transthoracic echocardiogram performed in January 2024 LVEF 60%, severe RV dilatation and dysfunction this was a new finding compared to prior echocardiogram. Left atrium moderately dilated on echo performed in 2019 XAVIER report performed at [facility] March 23, 2024 has been requested and is pending Given IV Lasix in the emergency department will monitor I&O and daily weights closely Was previously on lisinopril which she did not tolerate due to hypotension this has been discontinued Echocardiogram pending Rate controlled with metoprolol succinate 125 mg daily No anticoagulation secondary to gross hematuria secondary to radiation proctitis Was scheduled for a Watchman procedure by Dr. Banks at the beginning of March which was aborted secondary to equipment complications (3) Atrial fibrillation: Status: Chronic Assessment and plan: Rate controlled on metoprolol succinate 125 mg daily See above (4) Coronary artery arteriosclerosis: Status: Acute Assessment and plan: See above (5) Radiation proctitis: Status: Acute Assessment and plan: With history of hematuria, not able to tolerate anticoagulation Is having urinary incontinence will Bladder Scan to evaluate for urinary retention Consider urology consultation (6) Chronic kidney disease (CKD): Status: Chronic Assessment and plan: avoid nephrotoxic drugs renal dosing as needed closely follow with history of partial nephrectomy discussed with DR Molina History of Present Illness History of Present Illness Chief Complaint: chest pain Review of Systems All systems reviewed & are unremarkable except as noted in HPI and below PFSH All Active Problems (Updated 04/19/24 @ 16:15 by Sandy Jones NP) Chronic kidney disease (CKD) (Chronic) Radiation proctitis (Acute) Coronary artery arteriosclerosis (Acute) Chest pain (Acute) Heart failure (Acute) Fatigue (Acute) Allergic reaction caused by a drug (Acute) Atrial fibrillation (Chronic) Abdominal pain (Acute) Choledocholithiasis (Acute) Medical History Ventral hernia 2017- repaired Chronic anticoagulation a fib Prostate cancer 2017 Radiation, follows with urology (Dr. 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 Kinsey) Surgical History S/P rotator cuff repair around 2009- bilateral shoulders History of kidney surgery 2017, left 1/3 removed H/O ventral hernia repair History of cardiac catheterization unsure of date Social History Smoking/Tobacco Use Status: Never Smoking risk assessment performed?: Yes Alcohol Intake: current Alcohol Intake frequency: a few times a week Drug use: Never Substance use type: does not use Housing: house Do you feel safe at home: Yes Do you feel safe in your relationship?: Yes Meds Allergies and Home Medications Allergies Allergy/AdvReac Type Severity Reaction Status Date / Time piperacillin [From Zosyn] Allergy Severe Anaphylaxis Unverified 04/19/24 07:36 tazobactam [From Zosyn] Allergy Severe Anaphylaxis Unverified 04/19/24 07:36 Home Medications Medication Instructions Recorded Confirmed Type amitriptyline 10 mg tablet 20 mg PO ONCE 05/02/21 04/19/24 History atorvastatin 80 mg tablet 80 mg PO QPM 05/02/21 04/19/24 History furosemide 20 mg tablet 20 mg PO Q OTHER DAY 05/02/21 04/19/24 History isosorbide mononitrate 60 mg 60 mg PO DAILY 05/02/21 04/19/24 History tablet,extended release 24 hr tamsulosin 0.4 mg capsule 0.8 mg PO HS 05/02/21 04/19/24 History ascorbic acid (vitamin C) 1,000 mg 1,000 mg PO DAILY 05/03/21 04/19/24 History tablet (Vitamin C) aspirin 81 mg tablet 81 mg PO DAILY 05/03/21 04/19/24 History cholecalciferol (vit D3) 137.5 mcg 1 tab PO DAILY 05/03/21 04/19/24 History (5,500 unit)-vit K2 200 mcg tablet lisinopril 5 mg tablet 5 mg PO DAILY 05/03/21 04/19/24 History multivitamin 1 cap PO DAILY 05/03/21 04/19/24 History magnesium oxide 400 mg (241.3 mg 400 mg PO BID 05/17/21 04/19/24 History magnesium) tablet lupion 04/19/24 History melatonin 10 mg capsule 10 mg PO HS PRN 04/19/24 04/19/24 History metoprolol succinate 50 mg 125 mg PO DAILY 04/19/24 04/19/24 History tablet,extended release 24 hr Exam Const General: healthy appearing, comfortable and no acute distress Nutritional Appearance: obese Orientation: alert, awake and oriented x3 HENMT Head: normal to inspection, normocephalic and atraumatic Face and sinus: normal facial exam Eyes General: appearance normal, both eyes and all related structures Chest Chest: normal inspection of the chest Resp Effort & Inspection: normal respiratory effort and able to speak in complete sentences Cardio Rate: regular rate Rhythm: abnormal rhythm (controlled atrial fibrillation) GI Inspection: normal to inspection, distended and obesity Skin General skin exam: no rashes or lesions noted Neuro General: patient alert, patient awake and patient oriented x3 Extrem General: normal to inspection, full ROM and edema (lower) Laterality: bilateral Results Labs 04/19/24 07:23 04/19/24 07:23 Labs: Laboratory Results - last 24 hr 04/19/24 07:23 WBC 6.86 RBC 3.49 L Hgb 11.0 L Hct 33.6 L MCV 96 H MCH 31.5 MCHC 32.7 RDW 15.0 H Plt Count 147 MPV 9.6 Immature Gran % 0.6 Neutrophils % 65.9 Lymphocytes % 16.8 Monocytes % 13.6 Eosinophils % 2.8 Basophils % 0.3 Nucleated RBC % 0.0 Absolute Neutrophils 4.53 Absolute Lymphocytes 1.15 L Absolute Monocytes 0.93 H Absolute Eosinophils 0.19 Absolute Basophils 0.02 PT 9.9 INR 1.0 APTT 24.5 Sodium 144 Potassium 4.5 Chloride 108 H Carbon Dioxide 23.6 Anion Gap 12.4 H BUN 30 H Creatinine 1.7 H Est GFR (CKD-EPI 2020) 40.75 Glucose 135 H Calcium 8.9 Magnesium 1.7 L Total Bilirubin 0.6 AST 22 ALT 27 Alkaline Phosphatase 122 H Troponin I < 50 NT-Pro-B Natriuret Pep 3219 H Total Protein 7.3 Albumin 3.5 Last Vital Signs Temp 36.9 C 04/19/24 07:21 Pulse 102 H 05/28/24 07:35 Resp 20 04/19/24 07:21 BP 134/64 04/19/24 07:44 Pulse Ox 97 04/19/24 07:35 Time Spent Time spent with Patient: >75 minutes Time was spent: preparing to see the patient(eg.review tests), obtaining and/or reviewing separately otained hiistory, ordering medications,tests, procedures, indepentently interpreting results, counseling the patient and care coordination
--- NOTE | 2024-04-19 10:05 | NUR.NOTE ---
Nursing Note: [place] cath (29) placed for comfort prior to IV lasix dose.
[2024-04-19 10:23] LABS: Troponin I < 50 ng/L (< or =60)
--- NOTE | 2024-04-19 10:49 | NUR.NOTE ---
Nursing Note: 750mL clear yellow urine emptied from gravity bag.
[2024-04-19 16:00] LABS: Bilirubin Negative (Negative); Blood Large (Negative); Clarity Sl Cloudy (Clear); Glucose Negative (Negative); Ketones Negative (Negative); Leukocyte Esterase Large (Negative); Nitrite Negative (Negative); Specific Gravity 1.015 (1.005-1.025); Urobilinogen 0.2 mg/dL (Up to 0.2); pH 6.5 (5-8)
--- NOTE | 2024-04-19 16:17 | PHA.REVIEW2 ---
Pharmacy Admission Review Admission Clinical Review Admission Pharmacy Review: Radiation proctitis (Acute) Coronary artery arteriosclerosis (Acute) Chest pain (Acute) Heart failure (Acute) piperacillin [From Zosyn] Allergy (Severe, Unverified 04/19/24 07:36) Anaphylaxis tazobactam [From Zosyn] Allergy (Severe, Unverified 04/19/24 07:36) Anaphylaxis Resuscitation Status Full Code Height 5 ft 11 in Weight 137.8 kg Pharmacy Admission Review Renal Dosing Renal Dosing: BUN 30 mg/dL (7-18) H 04/19/24 07:23 Creatinine 1.7 mg/dL (0.70-1.30) H 04/19/24 07:23 Medications needing adjustments: Reviewed (CrCl 50.8 mL/min) List of meds needing interventions: Current medications are okay Anticoagulation Anticoagulation: Hgb 11.0 g/dL (13.5-17.5) L 04/19/24 07:23 Hct 33.6 % (40.0-50.0) L 04/19/24 07:23 Plt Count 147 10^3/uL (130-400) 04/19/24 07:23 INR 1.0 (0.9-1.1) 04/19/24 07:23 Creatinine 1.7 mg/dL (0.70-1.30) H 04/19/24 07:23 DVT Prophylaxis: Reviewed (None at this time) Relevant Labs Relevant Labs: Sodium 144 mmol/L (136-145) 04/19/24 07:23 Potassium 4.5 mmol/L (3.5-5.1) 04/19/24 07:23 Chloride 108 mmol/L (98-107) H 04/19/24 07:23 Magnesium 1.7 mg/dL (1.8-2.4) L 04/19/24 07:23 Electrolytes, C-Reactive P, ESR: Reviewed (Mg 1.7 - has order for mag oxide 400mg PO BID, glucose 135) Cardiac Review Cardiac Review: Troponin I < 50 ng/L (< or =60) 04/19/24 09:52 NT-Pro-B Natriuret Pep 3219 pg/mL (<300) H 04/19/24 07:23 Blood Pressure [Right Arm] 143/94 1123 Blood Pressure 153/83 1104 Blood Pressure 134/64 0744 Blood Pressure 146/82 0735 Blood Pressure 158/88 0721 BP, HR, EF%: Reviewed (BP 143/94 and HR WNL) QTc Review QTc: Reviewed (499 from 04/19/24) IV to PO Switch IV Medications: Reviewed Home Meds Home Med List reviewed: Intervened Relevent Home Meds Not ordered & why?: Vitamin D3, furosemide (TRACY), lisinopril (TRACY) and Lupion Provider put in order for [facility] med rec - per provider they did confirm that patient takes metoprolol succinate (was listed as tartrate on home med list). Fixed home med list and order Current Meds Current Medication Order Review: Reviewed
[2024-04-19 16:37] LABS: Bacteria Rare HPF (Negative); C & S Indicated? Yes; Casts Negative LPF (Negative); Crystals Negative HPF (Negative); Epithelial Cells Rare HPF (Negative); Mucus Negative (Negative); RBC >50 HPF (0-2)
[2024-04-19 16:58] LABS: Troponin I < 50 ng/L (< or =60)
--- NOTE | 2024-04-19 18:13 | TELEP.MEDREC ---
Date of service: 04/19/24 Time of Service: 18:14 Telepharmacy Home Med Rec Allergies Allergies: piperacillin [From Zosyn] Allergy (Severe, Unverified 04/19/24 07:36) Anaphylaxis tazobactam [From Zosyn] Allergy (Severe, Unverified 04/19/24 07:36) Anaphylaxis Interview Person Interviewed: partner Amaris Changes made to Home Medication List: ADDITIONS: Myrbetriq pyridium probiotic DELETIONS: lisinopril: has been on hold since February for low BP Additional Notes Additional Notes: Patient's partner, Trinity, stressed that he can not take metoprolol with the isosorbide. He takes isosorbide in the morning and metoprolol at night so his BP doesn't drop. His last doses of his medications were yesterday 04/18. Recommended Changes Attestation: The home medication list is now updated to the best of my knowledge and is ready to be reconciled by the provider. Please contact the TelePharmacy Medication Reconciliation Pharmacist at for any questions.
[2024-04-19] MEDS: Tamsulosin 0.4 MG CAPCR 0.8 MG PO (20:42)
[2024-04-19] MEDS: Atorvastatin 40 MG TAB 80 MG PO (20:42)
[2024-04-19] MEDS: Normal Saline Flush 10 ML SYR IVP (20:43)
[2024-04-19] MEDS: Magnesium Oxide 400 MG TAB PO (20:43)
[2024-04-20] VITALS (52 sets, daily range): BP systolic 117–203; BP diastolic 61–179; PULSE 73–142; RESP 17–34; TEMP 36.2–37; O2SAT 89–99
[2024-04-20 07:30] LABS: Abs Immature Grans 0.02 10^3/uL (0.0-0.06); Absolute Basophil Count 0.02 10^3/uL (0.0-0.2); Absolute Eosinophil Count 0.17 10^3/uL (0.0-0.7); Absolute Lymphocyte Count 0.96 10^3/uL (1.2-3.4); Absolute Monocyte Count 0.64 10^3/uL (0.1-0.8); Absolute Neutrophil Count 3.48 10^3/uL (1.2-6.7); Basophils % 0.4 %; Eosinophils % 3.2 %; HCT 35.9 % (40.0-50.0); HGB 11.7 g/dL (13.5-17.5); Immature Grans % 0.4 %; Lymphocytes % 18.1 %; MCH 31.4 pg (27.0-33.0); MCHC 32.6 % (32.0-36.0); MCV 96 fL (80-95); MPV 9.6 fL (8.0-11.0); Monocytes % 12.1 %; Neutrophils % 65.8 %; Platelet Count 148 10^3/uL (130-400); RBC 3.73 10^6/uL (4.36-5.78); RDW 14.9 % (11.8-14.1); RDW-SD 52.5 fL; WBC 5.29 10^3/uL (4.4-10.8)
[2024-04-20 07:50] LABS: ALT 26 U/L (16-63); AST 21 U/L (15-37); Albumin 3.7 g/dL (3.4-5.0); Alkaline Phosphatase 114 U/L (46-116); BUN 31 mg/dL (7-18); CREATININE 1.8 mg/dL (0.70-1.30); Calcium 9.3 mg/dL (8.5-10.1); Chloride 102 mmol/L (98-107); Estimated GFR 38.05 (mL/min/1.73m2); Glucose 132 mg/dL (74-106); Potassium 3.9 mmol/L (3.5-5.1); Sodium 142 mmol/L (136-145); Total Protein 7.7 g/dL (6.4-8.2)
[2024-04-20] MEDS: Furosemide 100 MG/10 ML VIAL 80 MG IVP ×2 (08:45→15:51)
--- NOTE | 2024-04-20 09:06 | W.PM.PROGNOT ---
Date of Service Date of service: 04/20/24 Time of Service: 09:11 Assessment and Plan Assessment and plan (1) Chest pain: Status: Acute Assessment and plan: Initially relieved by nitro but reproducible today and patient believes d/t recent failed Watchman attempt But Cardiac cath in 2016 demonstrated diffuse moderate to severe distal RCA disease Continue Telemetry troponin negative: PRN new chest pain Continue imdur (2) Heart failure: Status: Acute Assessment and plan: History of right ventricular dysfunction: Echo 04/20:LVEF 59%, w normal right ventricular systolic function Transthoracic echocardiogram performed in January 2024 LVEF 60%, severe RV dilatation and dysfunction this was a new finding compared to prior echocardiogram. Left atrium moderately dilated on echo performed in 2019 XAVIER report performed at [facility] March 23, 2024 : preserved LV funtion/normal right ventricular systolic function with tinny PFO / systolic blunting of pulmonary venous flow Continue IV Lasix will monitor I&O: adequate U/O Continue to monitor daily weights closely Lisinopril stopped d/t intolerance and hypotension Echocardiogram done see above Rate controlled with metoprolol succinate 125 mg daily No anticoagulation secondary to gross hematuria secondary to radiation proctitis Was scheduled for a Watchman procedure by Dr. Banks at the beginning of March which was aborted secondary to equipment complications SOB on mobilization: PT consult Pulmonary consult OPT for ADRIENNE suspicion (3) Atrial fibrillation: Status: Chronic Assessment and plan: Continue rate controlled on metoprolol succinate 125 mg daily See above (4) Coronary artery arteriosclerosis: Status: Acute Assessment and plan: See above (5) Radiation proctitis: Status: Acute Assessment and plan: With history of hematuria, not able to tolerate anticoagulation Is having urinary incontinence will Bladder Scan to evaluate for urinary retention PNTC scheduled in [place] on 04/21, patient to reschedule Consider urology consultation (6) Chronic kidney disease (CKD): Status: Chronic Assessment and plan: Continue to avoid nephrotoxic drugs Renal dosing as needed History of partial nephrectomy discussed with Dr Molina (7) Hypomagnesemia: Status: Acute Subjective Subjective Patient reports: feels better, tolerating liquids well, tolerating a regular diet, voiding w/o difficulty, flatus, shortness of breath and other (night sweats d/t hormonal therapy for prostate CA); denies diarrhea, nausea, vomiting or fever Exam Narrative Exam Narrative: Constitutional The patient is in bed comfortable but increased SOB on mobilization, obese body habitus HENMT: Facial structures with normal appearance Eyes: Well aligned Neuro:alert and oriented X4 . No focal deficit Resp: speaks in full sentences,clear lung bilaterally with decreased bases Cardio:Tele regular rhythm, S1, S2, no murmur, capillary refill<3 sec., positive pulses to all 4 ext., edema 1+ to LE's GI: Abdomen obese, not distended, soft and non tender, bowel sounds are present Integumentary: No skin lesions or rash on exposed skin Extremities: strength 5/5 to bilateral lower and upper extremities Psych: RASS 0, congruent mood and normal affect. Objective Last Vital Signs Temp 37.7 C H 04/19/24 23:26 Pulse 86 04/20/24 04:04 Resp 26 H 04/20/24 08:00 BP 142/79 H 04/20/24 04:04 Pulse Ox 96 04/20/24 08:00 Laboratory Results - last 24 hr 04/19/24 04/19/24 04/19/24 09:52 15:32 16:27 WBC RBC Hgb Hct MCV MCH MCHC RDW Plt Count MPV Immature Gran % Neutrophils % Lymphocytes % Monocytes % Eosinophils % Basophils % Nucleated RBC % Absolute Neutrophils Absolute Lymphocytes Absolute Monocytes Absolute Eosinophils Absolute Basophils Sodium Potassium Chloride Carbon Dioxide Anion Gap BUN Creatinine Est GFR (CKD-EPI 2020) Glucose Calcium Total Bilirubin AST ALT Alkaline Phosphatase Troponin I < 50 < 50 Total Protein Albumin Urine Color Urine Clarity Sl Cloudy Urine pH 6.5 Ur Specific [place] 1.015 Urine Protein Negative Urine Ketones Negative Urine Blood Large H Urine Nitrite Negative Urine Bilirubin Negative Urine Urobilinogen 0.2 Ur Leukocyte Esterase Large H Urine RBC >50 H Urine WBC 10-20 H Ur Epithelial Cells Rare Urine Crystals Negative Urine Bacteria Rare Urine Casts Negative Urine Mucus Negative Ur Culture Indicated? Yes Urine Glucose Negative 04/20/24 05:48 WBC 5.29 RBC 3.73 L Hgb 11.7 L Hct 35.9 L MCV 96 H MCH 31.4 MCHC 32.6 RDW 14.9 H Plt Count 148 MPV 9.6 Immature Gran % 0.4 Neutrophils % 65.8 Lymphocytes % 18.1 Monocytes % 12.1 Eosinophils % 3.2 Basophils % 0.4 Nucleated RBC % 0.0 Absolute Neutrophils 3.48 Absolute Lymphocytes 0.96 L Absolute Monocytes 0.64 Absolute Eosinophils 0.17 Absolute Basophils 0.02 Sodium 142 Potassium 3.9 Chloride 102 Carbon Dioxide 26.0 Anion Gap 14.0 H BUN 31 H Creatinine 1.8 H Est GFR (CKD-EPI 2020) 38.05 Glucose 132 H Calcium 9.3 Total Bilirubin 1.0 AST 21 ALT 26 Alkaline Phosphatase 114 Troponin I Total Protein 7.7 Albumin 3.7 Urine Color Urine Clarity Urine pH Ur Specific [place] Urine Protein Urine Ketones Urine Blood Urine Nitrite Urine Bilirubin Urine Urobilinogen Ur Leukocyte Esterase Urine RBC Urine WBC Ur Epithelial Cells Urine Crystals Urine Bacteria Urine Casts Urine Mucus Ur Culture Indicated? Urine Glucose PAWSS Have you Been Recently Intoxicated or Drunk Within the Last 30 days?: No Have you Ever Experienced Previous Episodes of Alcohol Withdrawal?: No Have you ever Experienced Withdrawal Seizures?: No Have you ever Experienced Delirium Tremens(DT)s?: No Have you ever undergone Alcohol Rehabilitation Treatment (i.e, inpt ot outpatient treatment programs)?: No Have you ever Experienced Blackouts?: No Have you ever Combined Alcohol with other Downers within the last 90 days?: No Have you ever Combined Alcohol with any other Substance of Abuse during the last 90 days?: No Positive Blood Alcohol level on Presentation? [PCS.BAL]: No Evidence of Increased Autonomic Activity (i.e. HR>120, tremor, sweating, agitation, nausea)?: No Result: 0 Time Spent with Patient Time Spent with Patient: >50 minutes Time was spent: preparing to see the patient(eg.review tests), obtaining and/or reviewing separately otained hiistory, ordering medications,tests, procedures, referring, communicating with other health child care lead teacher, indepentently interpreting results, counseling the patient and care coordination
[2024-04-20] MEDS: Amitriptyline 10 MG TAB 20 MG PO (09:25)
[2024-04-20] MEDS: Normal Saline Flush 10 ML SYR IVP ×2 (09:25→15:52)
[2024-04-20] MEDS: Ascorbic Acid 500 MG TAB 1000 MG PO (09:26)
[2024-04-20] MEDS: Aspirin E.C. 81 MG TABEC PO (09:27)
[2024-04-20] MEDS: Magnesium Oxide 400 MG TAB PO ×2 (09:27→19:18)
[2024-04-20] MEDS: Multivitamin TAB 1 TAB PO (09:27)
[2024-04-20] MEDS: Isosorbide Mononitrate 60 MG TABCR PO (09:27)
[2024-04-20] MEDS: traMADol 50 MG TAB PO (12:12)
[2024-04-20] MEDS: Acetaminophen 500 MG TAB 1000 MG PO ×2 (12:12→19:19)
[2024-04-20] MEDS: MAGNESIUM SULFATE 2 GM/50 ML BAG IVINF (12:31)
--- NOTE | 2024-04-20 15:57 | CHAPLAIN ---
Mando was sitting on the edge of the bed, with a fan blowing on him, when I visited. He said he was having a hot flash. Mando travels between homes in the [facility] and [place], where he has a mile long driveway to his [place]. 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 Most of his medical care is with clinicians in the [facility], but he has received care here in the past. Mando was pleasant and easily engaged in a conversation. His significant other is at their home in [place] and neighbor may be bringing her to visit.
--- NOTE | 2024-04-20 19:04 | NUR.NOTE ---
PT BP noted to be high on monitor, 196/179 when taken manually it was 130/78. Manual BP cuff was left in room for future BP needsNursing Note:
[2024-04-20] MEDS: Atorvastatin 40 MG TAB 80 MG PO (19:16)
[2024-04-20] MEDS: Metoprolol CR 50 MG TABCR 125 MG PO (19:17)
[2024-04-20] MEDS: Tamsulosin 0.4 MG CAPCR 0.8 MG PO (19:21)
[2024-04-21] VITALS (22 sets, daily range): BP systolic 109–144; BP diastolic 54–75; PULSE 83–118; RESP 15–31; TEMP 36.2–36.6; O2SAT 90–96
[2024-04-21] MEDS: Acetaminophen 500 MG TAB 1000 MG PO ×3 (03:57→20:12)
[2024-04-21 06:34] LABS: Abs Immature Grans 0.02 10^3/uL (0.0-0.06); Absolute Basophil Count 0.03 10^3/uL (0.0-0.2); Absolute Eosinophil Count 0.15 10^3/uL (0.0-0.7); Absolute Lymphocyte Count 1.07 10^3/uL (1.2-3.4); Absolute Monocyte Count 0.84 10^3/uL (0.1-0.8); Absolute Neutrophil Count 3.31 10^3/uL (1.2-6.7); Basophils % 0.6 %; Eosinophils % 2.8 %; Immature Grans % 0.4 %; Lymphocytes % 19.7 %; MCHC 33.3 % (32.0-36.0); MCV 96 fL (80-95); MPV 9.7 fL (8.0-11.0); Monocytes % 15.5 %; Platelet Count 149 10^3/uL (130-400); RBC 3.44 10^6/uL (4.36-5.78); RDW 14.9 % (11.8-14.1); RDW-SD 51.9 fL; WBC 5.42 10^3/uL (4.4-10.8)
[2024-04-21 06:51] LABS: Anion Gap 13.2 mmol/L (3-11); BUN 36 mg/dL (7-18); CO2 25.8 mmol/L (21.0-32.0); Calcium 9.2 mg/dL (8.5-10.1); Chloride 100 mmol/L (98-107); Estimated GFR 33.53 (mL/min/1.73m2); Glucose 132 mg/dL (74-106); Potassium 3.2 mmol/L (3.5-5.1); Sodium 139 mmol/L (136-145)
[2024-04-21 06:52] LABS: Magnesium 2.2 mg/dL (1.8-2.4)
--- NOTE | 2024-04-21 07:36 | PDOC.CMIN ---
Date of service: 04/21/24 Time of Service: 07:36 Care Management Initial Assmt Initial Assessment Reason for Hospitalization: Heart Failure Functional Status/Living Situation Town of Residence: [place] Resides with: Alone Significant Other/Family: Local Caregiver/Guardian: He is and his current significant other resides in [place]. His close friend Mac resides in [place], [place]. Employment Status: Retired Instrumental Activities of Daily Living (ADLs): Independent Advance Directives Advance Directives: Do you have an Advance Directive: Y 11/14/15 06:46 AD On File at [facility]: N 11/14/15 00:38 Date Asked 04/19/24 04/20/24 09:32 AD Date Reviewed COLST On File at [facility] COLST Date Scanned Code Status Resuscitation Status Full Code Insurance Coverage/Financial Issues Insurance: [employer] A[employer] Member: No Care Team Visit Care Team Role Provider Type Unknown Unknown Primary Care Provider STAFF PHYSICIAN InPatient Luis Higuera Other Providers OTHER Juan Daniel Sanford MD Emergency Provider [facility] STAFF PHYSICIAN Mac Molina MD Admit Provider [facility] STAFF PHYSICIAN Attending Provider Discharge Potential Discharge Needs: Imaging/labs (MPI Stress Test) and PT Evaluation Anticipated Barriers to Discharge: Treatment delay Patient/Family Education Needs: Review discharge instructions, discuss Ask Me Three Transportation: Private vehicle Plan: Mando will return home when ready per MD. He will follow up with his PCP and plan of care as prescribed. Awaiting MPI Stress test and PT consult to inform additional discharge planning considerations. CM continues to follow. PFSH All Active Problems (Updated 04/21/24 @ 11:58 by Nancy Li APRN) Discharge planning issues (Acute) Hypomagnesemia (Acute) Chronic kidney disease (CKD) (Chronic) Radiation proctitis (Acute) Coronary artery arteriosclerosis (Acute) Chest pain (Acute) Heart failure (Acute) Fatigue (Acute) Allergic reaction caused by a drug (Acute) Atrial fibrillation (Chronic) Abdominal pain (Acute) Choledocholithiasis (Acute) Medical History Ventral hernia 2017- repaired Chronic anticoagulation a fib Prostate cancer 2017 Radiation, follows with urology (Dr. 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 Kinsey) Surgical History S/P rotator cuff repair around 2009- bilateral shoulders History of kidney surgery 2017, left 1/3 removed H/O ventral hernia repair History of cardiac catheterization unsure of date Social History Smoking/Tobacco Use Status: Never Smoking risk assessment performed?: Yes Alcohol Intake: current Alcohol Intake frequency: a few times a week Drug use: Never Substance use type: does not use Housing: house Do you feel safe at home: Yes Do you feel safe in your relationship?: Yes SDOH(Care Management) Screening Will the Patient Participate in the Screening?: Yes Do you worry about having a steady place to live?: no Problems where you live: no known problems In the past 12 months, have you had to go without electric, gas, oil or water in your home?: no Have you or anyone in your house had to go without enough food to eat?: no Has lack of transportation kept you from medical appointments or from doing things needed for daily living?: no Has anyone in your support network made you feel unsafe for any reason?: no
[2024-04-21] MEDS: Magnesium Oxide 400 MG TAB PO ×2 (07:54→20:09)
[2024-04-21] MEDS: Ascorbic Acid 500 MG TAB 1000 MG PO (07:54)
[2024-04-21] MEDS: Amitriptyline 10 MG TAB 20 MG PO (07:54)
[2024-04-21] MEDS: Isosorbide Mononitrate 60 MG TABCR PO (07:54)
[2024-04-21] MEDS: Multivitamin TAB 1 TAB PO (07:54)
[2024-04-21] MEDS: Aspirin E.C. 81 MG TABEC PO (07:55)
[2024-04-21] MEDS: Normal Saline Flush 10 ML SYR IVP ×2 (07:55→20:00)
[2024-04-21] MEDS: Furosemide 100 MG/10 ML VIAL 80 MG IVP (07:55)
--- NOTE | 2024-04-21 08:55 | W.PM.PROGNOT ---
Date of Service Date of service: 04/21/24 Time of Service: 08:55 Assessment and Plan Assessment and plan (1) Chest pain: Status: Acute Assessment and plan: Initially relieved by nitro but reproducible yesterday and slight tenderness today and patient believes d/t recent failed Watchman attempt But Cardiac cath in 2016 showed moderate to severe distal RCA disease Continue Telemetry troponin negative: PRN if new chest pain developed Continue imdur (2) Heart failure: Status: Acute Assessment and plan: History of right ventricular dysfunction: Echo 04/20:LVEF 59%, w normal right ventricular systolic function Transthoracic echocardiogram performed in January 2024 LVEF 60%, severe RV dilatation and dysfunction this was a new finding compared to prior echocardiogram. Left atrium moderately dilated on echo performed in 2019 [facility] report from [facility] March 23, 2024 : -preserved LV function -normal right ventricular systolic function with tinny PFO -systolic blunting of pulmonary venous flow Will transition from IV Lasix to oral if SOB resolved w PT Closely monitor I&O: adequate U/O Monitor Daily weights closely: 131.5 was 137.8 on 04/19 Lisinopril stopped d/t intolerance and hypotension Rate controlled with metoprolol succinate 125 mg daily No anticoagulation secondary to gross hematuria secondary to radiation proctitis Watchman procedure by Dr. Banks at the beginning of March which was aborted secondary to equipment complications Cardiology f/u on May 11 PT consult Pulmonary consult OPT for ADRIENNE suspicion as per PCP when discharged (3) Atrial fibrillation: Status: Chronic Assessment and plan: HR low 100's to transient 140's on ambulation, today still atrial-fibrillation HR in the 80's. Will continue rate controlled on metoprolol succinate 125 mg daily See above (4) Coronary artery arteriosclerosis: Status: Acute Assessment and plan: See above (5) Radiation proctitis: Status: Acute Assessment and plan: Not able to tolerate anticoagulation d/t hematuria Hx PNTC scheduled in [place] on 04/21, patient to reschedule in [place] (6) Chronic kidney disease (CKD): Status: Chronic Assessment and plan: Continue to avoid nephrotoxic drugs Renal dosing as needed History of partial nephrectomy discussed with Dr Molina (7) Hypomagnesemia: Status: Acute Assessment and plan: Resolved Mg in AM (8) Discharge planning issues: Status: Acute Assessment and plan: D/c probably tomorrow F/U w/i [address] Chan PCP at [facility] in [place] Discussed with Dr. Molina Subjective Subjective Patient reports: no new complaints, feels better, tolerating liquids well, tolerating a regular diet, voiding w/o difficulty, flatus, no bowel movement, shortness of breath (improved) and afebrile; denies diarrhea, nausea or vomiting Exam Narrative Exam Narrative: Constitutional The patient is sititng in recliner, but decreased SOB on mobilization Neuro:alert and oriented X4 . Resp: speaks in full sentences,clear lung bilaterally, RR 20-21 Cardio:Tele A-fib HR 80's, S1, S2, no murmur, capillary refill<3 sec., positive pulses to all 4 ext.,trace edema to LE's GI: Abdomen obese but girth seems decreased, not distended, soft and non tender, bowel sounds are present as well as abd hernia Psych: RASS 0, congruent mood and normal affect. Objective Last Vital Signs Temp 36.6 C 04/21/24 03:30 Pulse 84 04/21/24 03:30 Resp 22 04/21/24 03:30 BP 144/54 H 04/21/24 03:30 Pulse Ox 93 04/21/24 03:30 Laboratory Results - last 24 hr 04/21/24 05:10 WBC 5.42 RBC 3.44 L Hgb 11.0 L Hct 33.0 L MCV 96 H MCH 32.0 MCHC 33.3 RDW 14.9 H Plt Count 149 MPV 9.7 Immature Gran % 0.4 Neutrophils % 61.0 Lymphocytes % 19.7 Monocytes % 15.5 Eosinophils % 2.8 Basophils % 0.6 Nucleated RBC % 0.0 Absolute Neutrophils 3.31 Absolute Lymphocytes 1.07 L Absolute Monocytes 0.84 H Absolute Eosinophils 0.15 Absolute Basophils 0.03 Sodium 139 Potassium 3.2 L Chloride 100 Carbon Dioxide 25.8 Anion Gap 13.2 H BUN 36 H Creatinine 2.0 H Est GFR (CKD-EPI 2020) 33.53 Glucose 132 H Calcium 9.2 Magnesium 2.2 PAWSS Have you Been Recently Intoxicated or Drunk Within the Last 30 days?: No Have you Ever Experienced Previous Episodes of Alcohol Withdrawal?: No Have you ever Experienced Withdrawal Seizures?: No Have you ever Experienced Delirium Tremens(DT)s?: No Have you ever undergone Alcohol Rehabilitation Treatment (i.e, inpt ot outpatient treatment programs)?: No Have you ever Experienced Blackouts?: No Have you ever Combined Alcohol with other Downers within the last 90 days?: No Have you ever Combined Alcohol with any other Substance of Abuse during the last 90 days?: No Positive Blood Alcohol level on Presentation? [PCS.BAL]: No Evidence of Increased Autonomic Activity (i.e. HR>120, tremor, sweating, agitation, nausea)?: No Result: 0 Time Spent with Patient Time Spent with Patient: >50 minutes Time was spent: preparing to see the patient(eg.review tests), obtaining and/or reviewing separately otained hiistory, ordering medications,tests, procedures, referring, communicating with other health child care provider, indepentently interpreting results, counseling the patient and care coordination
[2024-04-21] MEDS: POTASSIUM CHLORIDE 20 MEQ/100 ML BAG 50 MEQ IVINF (10:15)
--- NOTE | 2024-04-21 11:26 | PDOC.CMPRO ---
Date of service: 04/21/24 Time of Service: 11:26 Care Management Progress Note Progress Note Text Progress Note Text: Mando remains inpatient in the ICU on Med/Surg status, awaiting results of PT evaluation. CM continues to follow. PCP: Update chart Dr. Erik Low MD Address: [address] [place] [id number] Discharge Potential Discharge Needs: PT Evaluation Anticipated Barriers to Discharge: Treatment delay (MPI Stress Test, read ) Patient/Family Education Needs: Review discharge instructions, discuss Ask Me Three Transportation: Private vehicle Plan: Mando will discharge home after MPI Stress Test and PT evaluation. He will transport via private vehicle and follow up with his PCP and plan of care as prescribed. SDOH(Care Management) Screening Will the Patient Participate in the Screening?: Yes Do you worry about having a steady place to live?: no Problems where you live: no known problems In the past 12 months, have you had to go without electric, gas, oil or water in your home?: no Have you or anyone in your house had to go without enough food to eat?: no Has lack of transportation kept you from medical appointments or from doing things needed for daily living?: no Has anyone in your support network made you feel unsafe for any reason?: no
[2024-04-21] MEDS: Potassium Chloride 20 MEQ TABCR 40 MEQ PO (12:52)
--- NOTE | 2024-04-21 14:54 | PT.INIE ---
PT Notes Visit Reasons: Heart failure Physical Therapy Inpatient Initial Evaluation Date: 04/21/2024 Referring Doctor: Nancy Li NP PT Orders: PT CONSULT: Safety Consult for D/C Precautions: Fall. Standard. Activity as tolerated. Patient Profile/Admitting Diagnosis: Mando is a 79-year-old male who presented to the ED on 04/19/2023 due to intermittent chest pain. Patient is admitted for management of AF, CAD, and CKD. PMHX: All Active Problems (Updated 04/19/24 @ 16:15 by Sandy Jones NP) Chronic kidney disease (CKD) (Chronic) Radiation proctitis (Acute) Coronary artery arteriosclerosis (Acute) Chest pain (Acute) Heart failure (Acute) Fatigue (Acute) Allergic reaction caused by a drug (Acute) Atrial fibrillation (Chronic) Abdominal pain (Acute) Choledocholithiasis (Acute) Medical History Ventral hernia 2017- repaired Chronic anticoagulation a fib Prostate cancer The needle only 2017 Radiation, follows with urology (Dr. 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 Kinsey) Surgical History S/P rotator cuff repair around 2009- bilateral shoulders History of kidney surgery 2017, left 1/3 removed H/O ventral hernia repair History of cardiac catheterization unsure of date Social History/Home Situation: Main residence is in [facility], [place], [place] is 2 stories with no entrance steps. He has everything he needs on the main floor of the house. He also has a residence in [place]. Indepednent with all mobility ADL performance using single-point cane. Still drives. Equipment Owned/DME: [facility] Subjective: reported pain in B knees with R hurting more than the left from chronic arthritis. He adds that at home he is able to manage with pain med and use of biofreeze. Denied report of chest pain throughout session. Requested change of condom catheter before walking to prevent leaking. Nurse Marie was going to replace said catheter and Pt was to come back in 20-30 minutes. has ahd 3 falls in the past year. Objective: General Observation: Telemetry monitoring in place. Condom catheter needing to be replaced, Nurse Brian bosch Mental Status: Alert and oriented as to person, place, time, and purpose. Able to pay attention, focus, and respond appropriately. Pain:4-5/10 on B knees R>>L Vital Signs: HR highest of 132 bpm during walk, subsded to below 100 with rest ROM: Right Upper Extremity: Shoulder Flexion WFL. Shoulder abduction WFL. Elbow flexion WFL. Wrist flexion WFL. Functional opening and closing of hand WFL. Left Upper Extremity: Shoulder Flexion WFL. Shoulder abduction WFL. Elbow flexion WFL. Wrist flexion WFL. Functional opening and closing of hand WFL. Right Lower Extremity: Hip flexion allows up to 100 degrees. Hip abduction WFL. Knee flexion -30 to 90 degrees. Knee extension -30 degrees. Ankle dorsiflexion to neutral only.. Ankle plantarflexion WFL. Left Lower Extremity: Hip flexion allows up to 100 degrees. Hip abduction WFL. Knee flexion -30 to 90 degrees. Knee extension -30 degrees. Ankle dorsiflexion to neutral only.. Ankle plantarflexion WFL. Strength: Right Upper Extremity: Shoulder flexors 4-/5. Shoulder abductors 4-/5. Elbow flexors 4-/5. Elbow extensors 4-/5. Travel Journalist strong. Left Upper Extremity: Shoulder flexors 4-/5. Shoulder abductors 4-/5. Elbow flexors 4-/5. Elbow extensors 4-/5. Travel Journalist strong. Right Lower Extremity: Hip flexors 3-/5. Hip abductors 4-/5. Knee flexors 3-/5. Knee extensors 3-/5. Ankle dorsiflexors 3-/5. Ankle plantarflexors 4-/5. Left Lower Extremity: Hip flexors 3-/5. Hip abductors 4-/5. Knee flexors 3-/5. Knee extensors 3-/5. Ankle dorsiflexors 3-/5. Ankle plantarflexors 4-/5. Bed Mobility/Transfers: Minimal cueing provided for use of B hands as needed for support, movement sequence, AD management, and posture to reduce fall risk and minimize pain report Sit to stand minimal assist with FWW Stand to sit minimal assist with FWW Bed to reclining chair minimal assist with FWW Reclining chair to bed minimal assist with FWW Gait: Facilitated safe and correct performance of level surface ambulation covering a distance of about 80 feet + 80 feet using front wheeled walker with step-to gait pattern, terminal knee extension absent in B knees at midstance, estelle decreased. pain report increased to 5-6/10 with weight bearing. No report of chest pain. Balance: Static Sitting: Normal Dynamic Sitting: Normal Static Standing: Fair Dynamic Standing: Fair Special Tests: Mobility Limitations Standardized Measure [facility] AM-PAC 6 clicks Basic Mobility Inpatient Short Form: Raw Score: 18 CMS Score: 47% deficit Informed Consent/Education: Patient was instructed in purpose of PT consult and plan of care. Agreeable to proceed with established PT POC to achieve personal goals. ASSESSMENT: Fatigue and pain in B knees limiting activity tolerance. FWW providing good support and off-loading at this time. Required cueing to use B UE to puch from armsrest instead of having patient pull on caregiver's hands to stand up. Patient presents with clinical signs and symptoms consistent with current/admitting diagnoses that have resulted to mobility limitations, gait instability, generalized weakness, and overall ADL decline as demonstrated by the following impairment level findings: 1. Decreased strength to B UE/LE major muscle groups 2. Impaired standing balance 3. Impaired activity tolerance 4. Limitation of joint range of motion in B knees and hips 5. Shortness of breath 6. pPain in B knees Impairments are contributing to the following functional limitations: 1. Decline in bed mobility skills 2. Decline in transfer skills 3. Difficulty with ambulation without assistive device and physical assistance 4. Increased completion time for mobility ADL performance 5. Increased risk for falls 6. Difficulty with managing steps alone safely Patient is assessed as a 09973 moderate complexity based on the following: History: 79-year-old male with past medical history as indicated above Examination: Demonstrable impairment in strength, balance, and mobility level with underlying impairments and functional limitations as exhibited above as well as deficit score of 47% utilizing the [facility] Mobility Inpatient Short Form Presentation: Evolving Decision Makin moderate complexity Goals: Goals X1 week 1. Supine-Sit independent 2. Sit-Supine independent 3. Sit-Stand independent 4. Stand-Sit independent with FWW 5. Bed-Chair independent with FWW 6. Chair-Bed independent with FWW 7. Independent gait on level surface with use of FWW for at least 300 feet without report of pain nor dyspnea 8. Independent with home exercise program 9. Good static and dynamic standing balance/tolerance Plan of Care/Treatment Plan: 1-2x/day, 7 days/week x 1 week. Plan of care has been reviewed with the [employer] providing the service under Physical Therapy direction. Initiate Physical Therapy intervention for pain management as needed, strengthening, bed mobility, transfers, gait, stairs, balance training, and use of assistive device. DISCHARGE RECOMMENDATIONS: [] Home with no services [] [] Home with services [specify] [] Home with outpatient PT [] [] SNF for continued rehabilitation [] [] Group Home Care [] [] SNF versus LTC based on ability to participate and progress [] [X] PT vs short-term rehab based on progress towards goals TREATMENT CODE/TIME: 9716 2 x 20 minutes for 1 unit, 9753 0 x 32 minutes for 2 units (14:54?15:11 and 15:20?15:55). Thank you for the opportunity to participate in the care of this patient. Kelsie Leal PT, DPT, CLT [facility] [place], [place]
[2024-04-21] MEDS: Diclofenac 1% Gel 100 GM TUBE TP (17:48)
[2024-04-21] MEDS: traMADol 50 MG TAB PO (18:36)
[2024-04-21] MEDS: Tamsulosin 0.4 MG CAPCR 0.8 MG PO (20:02)
[2024-04-21] MEDS: Atorvastatin 40 MG TAB 80 MG PO (20:06)
[2024-04-21] MEDS: Metoprolol CR 50 MG TABCR 125 MG PO (20:08)
[2024-04-22] VITALS (12 sets, daily range): BP systolic 109–117; BP diastolic 71–100; PULSE 78–145; RESP 14–27; TEMP 35.6–35.9; O2SAT 95–96
[2024-04-22 07:21] LABS: Abs Immature Grans 0.02 10^3/uL (0.0-0.06); Absolute Basophil Count 0.02 10^3/uL (0.0-0.2); Absolute Lymphocyte Count 1.13 10^3/uL (1.2-3.4); Absolute Monocyte Count 1.01 10^3/uL (0.1-0.8); Basophils % 0.3 %; Eosinophils % 4.9 %; HCT 36.3 % (40.0-50.0); HGB 11.9 g/dL (13.5-17.5); Immature Grans % 0.3 %; Lymphocytes % 18.3 %; MCH 31.5 pg (27.0-33.0); MCHC 32.8 % (32.0-36.0); MCV 96 fL (80-95); MPV 9.9 fL (8.0-11.0); Monocytes % 16.3 %; Neutrophils % 59.9 %; Platelet Count 170 10^3/uL (130-400); RBC 3.78 10^6/uL (4.36-5.78); RDW 14.6 % (11.8-14.1); RDW-SD 51.1 fL; WBC 6.18 10^3/uL (4.4-10.8)
[2024-04-22 07:34] LABS: Anion Gap 11.4 mmol/L (3-11); BUN 40 mg/dL (7-18); CO2 27.6 mmol/L (21.0-32.0); Calcium 9.5 mg/dL (8.5-10.1); Chloride 101 mmol/L (98-107); Estimated GFR 33.53 (mL/min/1.73m2); Glucose 128 mg/dL (74-106); Magnesium 2.1 mg/dL (1.8-2.4); Potassium 3.3 mmol/L (3.5-5.1); Sodium 140 mmol/L (136-145)
[2024-04-22] MEDS: Amitriptyline 10 MG TAB 20 MG PO (08:08)
[2024-04-22] MEDS: Ascorbic Acid 500 MG TAB 1000 MG PO (08:08)
[2024-04-22] MEDS: Isosorbide Mononitrate 60 MG TABCR PO (08:08)
[2024-04-22] MEDS: Magnesium Oxide 400 MG TAB PO (08:09)
[2024-04-22] MEDS: Potassium Chloride 20 MEQ TABCR PO (08:09)
[2024-04-22] MEDS: Aspirin E.C. 81 MG TABEC PO (08:09)
[2024-04-22] MEDS: Furosemide 40 MG TAB PO (08:09)
[2024-04-22] MEDS: Multivitamin TAB 1 TAB PO (08:09)
[2024-04-22] MEDS: Normal Saline Flush 10 ML SYR IVP (09:04)
[2024-04-22] MEDS: Diclofenac 1% Gel 100 GM TUBE TP (09:05)
[2024-04-22] MEDS: Potassium Chloride 20 MEQ TABCR 40 MEQ PO (09:36)
--- NOTE | 2024-04-22 12:22 | W.PM.DS.N ---
Date of service: 04/22/24 Time of Service: 12:00 DS: Diagnosis Discharge Diagnosis (1) Chest pain: Status: Resolved (2) Heart failure: Status: Acute (3) Atrial fibrillation: Status: Chronic (4) Coronary artery arteriosclerosis: (5) Radiation proctitis: (6) Chronic kidney disease (CKD): (7) Hypomagnesemia: Status: Resolved (8) Discharge planning issues: Status: Deleted Discharge Plan Disposition Patient Disposition: Home Condition: Fair Discharge Details Reason For Visit: Heart failure Admit Date/Time: 04/19/24 09:47 Admit Provider: Mac Molina Attending Provider: Mac Molina Primary Care Provider: Unknown,Unknown Hospital Course Hospital Course: This is a 79 year old male patient who presented to the [facility] ED on 04/19/2024 for evaluation of a one-week history of intermittent chest pain, described as sharp and left-sided, radiating down the left arm. The pain had been mild and intermittent with no exacerbating or relieving factors. Additionally, the patient reported lower extremity swelling. That morning, he experienced a severe, 10 out of 10 left-sided chest pain radiating down his right arm after bending over, which prompted him to call an ambulance. Upon arrival to the ED, the patient received a full dose of aspirin and three doses of sublingual nitroglycerin. His chest pain decreased to 3 out of 10 after the nitroglycerin administration. The patient denied any shortness of breath. Patient reported compliance with his medication regimen. It is noted that three weeks ago, the patient was scheduled to undergo a Watchman procedure, but it was aborted due to lack of appropriate equipment. Given his history of A-fib and recent episode of chest pain, he was admitted to the medical floor for further cardiac evaluation and monitoring. Troponin was negative x 3. Electroytes unremarkable except potassium was low and was repleted, creatinine 2.0. Echocardiogram- technically limited study, patient was unable to turn. Atrial fibrillation. EF 70%, no segmental wall motion abnormalities. Chest xray - no acute pulmonary findings. Patient's fursoemide was increased to 40 mg twice a day and he diuresed well. On admission patient weighted 137.8 kg, on discharge 132 kg. On discharge he was started on spironolactone 25 mg daily and his furosemide was increased to 40 mg daily. PCP will follow and adjust accordingly. Patient was started on potassium 20 meq daily. A BMP was ordered for the beginning of next week to check his electrolytes. Recommend patient has an out patient stress test. Home Meds and New Rx's Prescriptions: New diclofenac sodium 3 % Gel 100 g topical QID Qty: 0 0RF potassium chloride 20 mEq tablet extended release 20 meq PO DAILY Qty: 30 0RF spironolactone 25 mg tablet 25 mg PO DAILY Qty: 30 0RF Continued melatonin 10 mg capsule 10 mg PO HS metoprolol succinate 50 mg tablet extended release 24 hr 125 mg PO .nightly mirabegron [Myrbetriq] 25 mg tablet extended release 24 hr 25 mg PO DAILY phenazopyridine [Pyridium] 100 mg tablet 100 mg PO DAILY PRN PRN (Reason: urinary pain) Probiotic 3 billion cell capsule 3,000 mmu cells PO DAILY Rx Instructions: administer with a meal acetaminophen 500 mg capsule 1,000 mg PO Q8H atorvastatin 80 mg Tablet 80 mg PO QPM isosorbide mononitrate 60 mg Tablet Extended Release 24 Hr 60 mg PO DAILY tamsulosin 0.4 mg Capsule 0.4 mg PO HS amitriptyline 10 mg Tablet 20 mg PO DAILY ascorbic acid (vitamin C) [Vitamin C] 1,000 mg Tablet 1,000 mg PO DAILY aspirin 81 mg Tablet 81 mg PO DAILY multivitamin Capsule 1 cap PO DAILY vitamin D3-vitamin K2 5,500-200 unit-mcg Tablet 1 tab PO DAILY magnesium oxide 400 mg (241.3 mg magnesium) tablet 400 mg PO BID Changed furosemide 20 mg Tablet 40 mg PO DAILY Qty: 30 0RF Discharge Instructions Instructions: Spironolactone (By mouth), Furosemide (By mouth), Potassium Chloride (By mouth), Diclofenac (On the skin), Heart Failure (DC) Additional Instructions: Take furosemide 40 mg daily until follow up with PCP. Start spironolactone 25 mg daily. Start Potassium chloride 20 meq daily. Continue Diclofenac gel on your knee. You should have your electrolytes checked next week to assure your potassium is ok. There is an order in the system. You should have an out patient stress test, arrange this with your PCP or deputy chief sheriff in [place]. Referrals: Erik Low MD [ NON-[facility] STAFF PHYSICIAN] - (Upon patient's discharge [facility] will fax ([phone]) the discharge summary to [facility] to Dr. Low's office. Dr. Low's office will call patient on Thursday or Thursday and schedule a follow up appointment at that time.) Activity:: Activity as Tolerated Equipment/Supplies:: No Equipment Needed Diet:: Low Sodium Discharge Orders Discharge Orders: Discharge Order (Routine); Ordered 04/22/24 Ordered By: Morenita Tam Other Ambulatory Orders: Basic Metabolic Panel (Routine) Timeframe: 1 Week Facility: [facility] - Location: Laboratory Outpatient - [facility] Ordered By: Morenita Tam Discharge Data Discharge Date/Time-TO BE ENTERED AT DEPARTURE: 04/22/24 14:42 Discharge Comment: home with DS: Summary Time Spent with Patient providing and/or coordinating discharge services: Greater than 30 minutes Status at Discharge Functional status at discharge: independent ambulation Overall status at discharge: patient is back to baseline Mental Status: mental status grossly normal Speech and Movement: speech and movement normal Mood: congruent mood Affect: normal affect Quality:SDOH Health Related Social Needs: No Data to Display Exam Const General: healthy appearing, comfortable and no acute distress Nutritional Appearance: obese Orientation: alert, awake and oriented x3 HENMT Head: normal to inspection, normocephalic and atraumatic Face and sinus: normal facial exam Eyes General: appearance normal, both eyes and all related structures Chest Chest: normal inspection of the chest Resp Effort & Inspection: normal respiratory effort and able to speak in complete sentences Cardio Rate: regular rate Rhythm: abnormal rhythm (controlled atrial fibrillation) GI Inspection: normal to inspection, distended and obesity Skin General skin exam: no rashes or lesions noted Neuro General: patient alert, patient awake and patient oriented x3 Extrem General: normal to inspection, full ROM and edema (lower) Laterality: bilateral Psych Mental Status: mental status grossly normal Speech and Movement: speech and movement normal Mood: congruent mood Affect: normal affect DS: Data Vitals/I&O Vitals and I&O: Vital Signs Temperature 35.9 C L 04/22/24 08:07 Temperature Source Tympanic 04/22/24 08:07 Pulse 107 H 04/22/24 09:14 Pulse Rhythm Regular 04/22/24 08:34 Pulse 86 04/22/24 09:14 Respiratory Rate 16 04/22/24 09:14 Respiratory Effort Normal, Non-Labored 04/22/24 08:34 Respiratory Depth Normal 04/22/24 08:34 Respiratory Pattern Normal 04/22/24 08:34 Blood Pressure 109/79 04/22/24 09:14 Blood Pressure Mean 89 04/22/24 09:14 Blood Pressure Position Supine 04/19/24 11:23 Pulse Oximetry 95 04/22/24 09:14 Oxygen Delivery Method Room Air 04/22/24 08:07 Oxygen Flow Rate 0 04/22/24 08:07 Pain Level 5 04/21/24 15:30 Intake & Output 04/21/24 04/22/24 04/22/24 23:59 11:59 23:59 Intake Total 580 / 1060 400 / 400 Output Total 1250 / 1950 700 / 700 Balance -670 / -890 -300 / -300 Weight 132 kg Intake: IV 100 / 100 Oral 480 / 960 400 / 400 Output: Urine 1250 / 1950 700 / 700 Other: Urine Color Yellow Yellow Urine Appearance Cloudy Cloudy Comment Condom cath displaced. Placed new external cath. Stool Occult Blood Negative Stool Size Moderate Stool Characteristics Hard Data Completed and Pending Labs on day of discharge: Labs from last 24 hours 04/22/24 04/22/24 05:37 05:37 WBC 6.18 RBC 3.78 L Hgb 11.9 L Hct 36.3 L MCV 96 H MCH 31.5 MCHC 32.8 RDW 14.6 H Plt Count 170 MPV 9.9 Immature Gran % 0.3 Neutrophils % 59.9 Lymphocytes % 18.3 Monocytes % 16.3 Eosinophils % 4.9 Basophils % 0.3 Nucleated RBC % 0.0 Absolute Neutrophils 3.70 Absolute Lymphocytes 1.13 L Absolute Monocytes 1.01 H Absolute Eosinophils 0.30 Absolute Basophils 0.02 Sodium 140 Potassium 3.3 L Chloride 101 Carbon Dioxide 27.6 Anion Gap 11.4 H BUN 40 H Creatinine 2.0 H Est GFR (CKD-EPI 2020) 33.53 Glucose 128 H Calcium 9.5 Magnesium Cancelled 2.1 PFSH All Active Problems (Updated 04/23/24 @ 00:01 by TARIQ RODRIGUEZ) Hypokalemia (Acute) Heart failure (Acute) Fatigue (Acute) Allergic reaction caused by a drug (Acute) Atrial fibrillation (Chronic) Abdominal pain (Acute) Choledocholithiasis (Acute) Medical History Ventral hernia 2017- repaired Chronic anticoagulation a fib Prostate cancer 2017 Radiation, follows with urology (Dr. 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 Kinsey) Surgical History S/P rotator cuff repair around 2009- bilateral shoulders History of kidney surgery 2017, left 1/3 removed H/O ventral hernia repair History of cardiac catheterization unsure of date Social History Smoking/Tobacco Use Status: Never Smoking risk assessment performed?: Yes Alcohol Intake: current Alcohol Intake frequency: a few times a week Drug use: Never Substance use type: does not use Housing: house Do you feel safe at home: Yes Do you feel safe in your relationship?: Yes Time Spent with Patient Time Spent with Patient: 45-69 minutes Time was spent: preparing to see the patient(eg.review tests), ordering medications,tests, procedures, referring, communicating with other health child care cook, indepentently interpreting results, counseling the patient and care coordination
--- NOTE | 2024-04-22 17:28 | PDOC.CMDIS ---
Care Management Discharge Plan Reason for Hospitalization: Heart Failure Discharge Plan: Mando will return home with outpatient follow up with his PCP, and Dr. Low at [facility], he will transport via private vehicle with his . Patient/Family Education Needs: Review discharge instructions, discuss Ask Me Three. Services Needed at Discharge: Home Health Care Services (PT recommending HH/PT, provider reports patient is back to baseline at [facility]. ) SDOH Health Related Social Needs: No Data to Display
== END 2024-04-22 14:42 | disposition home or self-care (01) | DRG 292 ==
LOC: ER 08:30 → ICU 10:45
PROVIDERS: Nurse Practitioner Acute Care; Admitting Provider Internal Medicine; Emergency Provider Emergency Medicine; Visit Provider Internal Medicine
DX: I13.0 Hypertensive heart and chronic kidney disease with heart failure and stage 1 through stage 4 chronic kidney disease, or unspecified chronic kidney disease (principal); Z68.41 Body mass index [BMI] 40.0-44.9, adult; I48.91 Unspecified atrial fibrillation; R07.89 Other chest pain; I50.9 Heart failure, unspecified; I25.10 Atherosclerotic heart disease of native coronary artery without angina pectoris; K62.7 Radiation proctitis; N18.9 Chronic kidney disease, unspecified; E83.42 Hypomagnesemia; E87.6 Hypokalemia; R32 Unspecified urinary incontinence; Z90.5 Acquired absence of kidney; Z85.528 Personal history of other malignant neoplasm of kidney; C61 Malignant neoplasm of prostate; E66.9 Obesity, unspecified; G47.33 Obstructive sleep apnea (adult) (pediatric); E78.5 Hyperlipidemia, unspecified; Z79.01 Long term (current) use of anticoagulants
CPT/HCPCS: 00123; 36415; 80048; 80053; 93005; 96374; 97162; 97530; 99285; 71045; 81003; 81015; 83735; 83880; 84484; 85025; 85610; 85730; 87086; 93010; 93306; 99223; 99233; 99239; J1940; J3475; J3480

== ENCOUNTER 2024-08-12 13:40 | Emergency (ER) | payer MEDICARE, SELFPAY ==
[2024-08-12 13:50] VITALS: BP 126/78; PULSE 105; TEMP 36.3; O2SAT 96
--- NOTE | 2024-08-12 14:37 | ED.GENADUL_ITS ---
Discharge Plan Disposition Patient Disposition: Home Condition: Stable Discharge Details Clinical Impression: Complication of Lester catheter Primary Care Provider: Unknown,Unknown ED Provider: Nicolas Braswell Home Meds and New Rx's Prescriptions: Continued melatonin 10 mg capsule 10 mg PO HS metoprolol succinate 50 mg tablet extended release 24 hr 125 mg PO .nightly mirabegron [Myrbetriq] 25 mg tablet extended release 24 hr 25 mg PO DAILY phenazopyridine [Pyridium] 100 mg tablet 100 mg PO DAILY PRN PRN (Reason: urinary pain) Probiotic 3 billion cell capsule 3,000 mmu cells PO DAILY Rx Instructions: administer with a meal acetaminophen 500 mg capsule 1,000 mg PO Q8H diclofenac sodium 3 % Gel 100 g topical QID Qty: 0 0RF furosemide 20 mg Tablet 40 mg PO DAILY Qty: 30 0RF potassium chloride 20 mEq tablet extended release 20 meq PO DAILY Qty: 30 0RF spironolactone 25 mg tablet 25 mg PO DAILY Qty: 30 0RF atorvastatin 80 mg Tablet 80 mg PO QPM isosorbide mononitrate 60 mg Tablet Extended Release 24 Hr 60 mg PO DAILY tamsulosin 0.4 mg Capsule 0.4 mg PO HS amitriptyline 10 mg Tablet 20 mg PO DAILY ascorbic acid (vitamin C) [Vitamin C] 1,000 mg Tablet 1,000 mg PO DAILY aspirin 81 mg Tablet 81 mg PO DAILY multivitamin Capsule 1 cap PO DAILY vitamin D3-vitamin K2 5,500-200 unit-mcg Tablet 1 tab PO DAILY magnesium oxide 400 mg (241.3 mg magnesium) tablet 400 mg PO BID Discharge Instructions Additional Instructions: Follow-up with your neurologist as scheduled If you feel more ill or have new symptoms such as high fevers or severe pain return to the emergency department for reevaluation. HPI General Mode of arrival: ambulatory . Date/Time Provider Initiated Documentation: 08/12/24 13:51 . Limitations to Documentation: no limitations . Information obtained by: patient . History of Present Illness 79 year old M presents to the emergency department with the chief complaint of leaking around lester catheter, described as moderate, Patient started experiencing this week(s) (1) and it has been intermittent. No relieving factors improve symptom(s), No exacerbating factors reported . Patient notes no other symptoms.; denies fever/chills. Patient did receive the following treatments prior to arrival, none Related Data Home Medications ?Medication ?Instructions ?Recorded ?Confirmed amitriptyline 10 mg tablet 20 mg PO DAILY 05/02/21 08/12/24 atorvastatin 80 mg tablet 80 mg PO QPM 05/02/21 08/12/24 isosorbide mononitrate 60 mg 60 mg PO DAILY 05/02/21 08/12/24 tablet,extended release 24 hr tamsulosin 0.4 mg capsule 0.4 mg PO HS 05/02/21 08/12/24 ascorbic acid (vitamin C) 1,000 mg 1,000 mg PO DAILY 05/03/21 08/12/24 tablet (Vitamin C) aspirin 81 mg tablet 81 mg PO DAILY 05/03/21 08/12/24 cholecalciferol (vit D3) 137.5 mcg 1 tab PO DAILY 05/03/21 08/12/24 (5,500 unit)-vit K2 200 mcg tablet multivitamin 1 cap PO DAILY 05/03/21 08/12/24 magnesium oxide 400 mg (241.3 mg 400 mg PO BID 05/17/21 08/12/24 magnesium) tablet lactobacillus combination no.4 3 3,000 mmu cells PO DAILY 04/19/24 08/12/24 billion cell capsule (Probiotic) melatonin 10 mg capsule 10 mg PO HS 04/19/24 08/12/24 metoprolol succinate 50 mg 125 mg PO .nightly 04/19/24 08/12/24 tablet,extended release 24 hr mirabegron 25 mg tablet,extended 25 mg PO DAILY 04/19/24 08/12/24 release 24 hr (Myrbetriq) phenazopyridine 100 mg tablet 100 mg PO DAILY PRN PRN urinary 04/19/24 08/12/24 (Pyridium) pain acetaminophen 500 mg capsule 1,000 mg PO Q8H Bilateral Knee Pain 04/20/24 08/12/24 diclofenac sodium 3 % topical gel 100 g topical QID #0 grams 04/22/24 08/12/24 furosemide 20 mg tablet 40 mg (2 x 20 mg) PO DAILY #30 tabs 04/22/24 08/12/24 potassium chloride 20 mEq 20 meq PO DAILY #30 tabs 04/22/24 08/12/24 tablet,extended release spironolactone 25 mg tablet 25 mg PO DAILY #30 tabs 04/22/24 08/12/24 Previous Rx's ?Medication ?Instructions ?Recorded diclofenac sodium 3 % topical gel 100 g topical QID #0 grams 04/22/24 furosemide 20 mg tablet 40 mg (2 x 20 mg) PO DAILY #30 tabs 04/22/24 potassium chloride 20 mEq 20 meq PO DAILY #30 tabs 04/22/24 tablet,extended release spironolactone 25 mg tablet 25 mg PO DAILY #30 tabs 04/22/24 Allergies Allergy/AdvReac Type Severity Reaction Status Date / Time piperacillin (From Zosyn) Allergy Severe Anaphylaxis Unverified 04/19/24 07:36 tazobactam (From Zosyn) Allergy Severe Anaphylaxis Unverified 04/19/24 07:36 General Stated Complaint: Urinary VIRIDIANA: 4 Review of Systems All systems reviewed & are unremarkable except as noted in HPI and below Constitutional Constitutional: Denies chills, Denies fever(s) and Denies weakness Cardiovascular Cardiovascular: Denies chest pain and Denies dyspnea Respiratory Respiratory: Denies cough and Denies dyspnea Gastrointestinal Gastrointestinal: Denies abdominal pain, Denies nausea and Denies vomiting Neurologic Neurologic: Denies weakness Exam Const General: no acute distress Orientation: alert [facility] Head: normal to inspection Ears: external ears normal General nose exam: external nose normal Mouth: moist mucous membranes Eyes General: appearance normal, both eyes and all related structures Neck Neck: normal visual inspection Resp Effort & Inspection: normal respiratory effort and able to speak in complete sentences Cardio Rate: regular rate GI Palpation: soft and nontender Skin General skin exam: no rashes or lesions noted Neuro General: patient alert and patient oriented x3 Extrem General: normal to inspection Psych Mental Status: mental status grossly normal Course Vital Signs Vital signs: Vital Signs Temperature 36.3 C L 08/12/24 13:50 Pulse 105 H 08/12/24 13:50 Blood Pressure 126/78 08/12/24 13:50 Pulse Oximetry 96 08/12/24 13:50 Temperature 36.3 C L 08/12/24 13:50 Temperature Source Oral 08/12/24 13:50 Pulse 105 H 08/12/24 13:50 Blood Pressure 126/78 08/12/24 13:50 Pulse Oximetry 96 08/12/24 13:50 Medical Decision Making 79-year-old male has a history of prior bladder cancer and as needed Lester for the last 4 months comes in after he had a Lester placed last week and since then has had leaking around the Lester. He denies any severe abdominal pain, fevers, chills, vomiting. He says that there is urine in the bag and appears normal. He is alert and appears well in no distress on exam. There is no swelling of the penis or testes. I suspect that this is a Lester catheter issue and we will have nursing replace it to see if this resolves think leaking around it. Nursing placed a 16 [place]amese catheter without complications and patient tolerated well. He has no leaking now, he is stable for discharge and will follow-up with his urologist, return precautions given Differential Diagnosis Differential Diagnosis: Lester catheter issue, bladder spasm Quality:SDOH Health Related Social Needs: No Data to Display PFSH All Active Problems (Updated 08/12/24 @ 15:38 by Nicolas Braswell MD) Complication of Lester catheter (Acute) Heart failure (Acute) Fatigue (Acute) Allergic reaction caused by a drug (Acute) Atrial fibrillation (Chronic) Abdominal pain (Acute) Choledocholithiasis (Acute) Medical History Ventral hernia 2017- repaired Chronic anticoagulation a fib Prostate cancer 2017 Radiation, follows with urology (Dr. 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 Kinsey) Surgical History S/P rotator cuff repair around 2009- bilateral shoulders History of kidney surgery 2017, left 1/3 removed H/O ventral hernia repair History of cardiac catheterization unsure of date Social History Smoking/Tobacco Use Status: Never Smoking risk assessment performed?: Yes Alcohol Intake: current Alcohol Intake frequency: a few times a week Drug use: Never Substance use type: does not use Housing: house Do you feel safe at home: Yes Do you feel safe in your relationship?: Yes
== END 2024-08-12 15:45 | disposition home or self-care (01) ==
PROVIDERS: Emergency Provider Emergency Medicine
DX: T83.038A Leakage of other urinary catheter, initial encounter (principal)
CPT/HCPCS: 99282; 99283

== ENCOUNTER 2025-08-30 10:54 | Inpatient (IN) | payer MEDICARE, SELFPAY ==
[2025-08-30] VITALS (57 sets, daily range): BP systolic 83–112; BP diastolic 30–77; PULSE 53–90; RESP 12–34; TEMP 35.7–36.7; O2SAT 94–99
--- NOTE | 2025-08-30 10:45 | RT.EKG_ITS ---
APPROVED REPORT Exam: Resting ECG Reason for Exam: Dizziness Patient Location: E HR:84 bpm ECG Measurements Heart Rate 84 AXIS CO [id number] P [id number] QRSd 160 QRS 30 QT 399 T -60 QTc 473 Conclusion Atrial fibrillation...V-rate 65- 91, irreg A-activity Right bundle branch block...QRSd>120, terminal axis(90,270) Borderline ST depression, lateral leads...ST <-0.07mV, I aVL V5 V6 Physician: RBBB w/ morphiology change since last ekg
--- NOTE | 2025-08-30 11:15 | DI.CT_ITS ---
Exam(s) CT CHEST PE CTA EXAM: CT CHEST PE CTA CLINICAL HISTORY: chest pain, recent Watchman procedure, near syncop. TECHNIQUE: Imaging Protocol: CT angiography of the chest was performed using pulmonary embolus protocol. Multi planar reconstructions were performed. CONTRAST MATERIAL: Intravenous: Omnipaque 350 Contrast volume: 100 cc COMPARISON: CT ABD PELVIS WITH CONTRAST from 11/14/2015 FINDINGS: CHEST: PULMONARY ARTERIES: There are no intraluminal filling defects to suggest acute pulmonary emboli. LUNGS: Right lung is clear. There are mild increased markings in left lower lobe posterior basal segment. Also mild platelike atelectasis at this level. No pleural effusions. No findings in trachea and mainstem bronchi.. MEDIASTINUM: There is no hilar nor mediastinal adenopathy. Abnormal appearing thyroid gland. The right thyroid lobe is enlarged and contains dominant nodules. CARDIAC: There is a device in the superior aspect of the left side of the heart which was not evident on prior CT scan of 2014. This is in left atrial appendage. Patient has apparently had a prior Watchmans procedure. The diameter of the ascending thoracic aorta is enlarged measuring 4.1 cm. Cannot assess for dissection as there is no intravenous contrast in the aorta. All the contrast is in the pulmonary vasculature. There is no significant shift of the interventricular septum. There is some contrast reflux into the intrahepatic IVC and hepatic veins evident. PARTIALLY VISUALIZED UPPERMOST ABDOMEN: No obvious findings OSSEOUS: No fractures. No significant osseous lesions. Multilevel chronic degenerative disc disease.. IMPRESSION: 1. No evidence of acute pulmonary emboli. Mild increased markings are noted in the left lower lobe posterior basal segment but no confluent infiltrate nor pleural effusion nor obvious pulmonary infarction. 2. Enlarged ascending thoracic aorta with diameter 4.1 cm. No pericardial effusion. Cannot assess for dissection as there is no IV contrast in the thoracic aorta. 3. There is a device in left atrial appendage of the heart noted which was not previously present 2014. patient has apparently had a watch men's procedure Report called by myself to ER physician 08/30/2025 at 1:01 p.m. RADIATION DOSE DELIVERED: 222.39mGy.cm Total DLP DATA REPOSITORY: All CT scans at this facility are submitted to the National Radiology Data Registry (NRDR) Dose Index Registry (DIR) with the [employer] (ACR). RADIATION OPTIMIZATION: All CT scans at this facility use at least one of these dose optimization techniques: automated exposure control; mA and/or kV adjustment per patient size (includes targeted exams where dose is matched to clinical indication); or iterative reconstruction.
[2025-08-30 11:29] LABS: Abs Immature Grans 0.07 10^3/uL (0.0-0.06); HCT 41.1 % (40.0-50.0); HGB 13.8 g/dL (13.5-17.5); Immature Grans % 0.7 %; MCH 31.4 pg (27.0-33.0); MCHC 33.6 % (32.0-36.0); MCV 93 fL (80-95); MPV 9.8 fL (8.0-11.0); Platelet Count 178 10^3/uL (130-400); RBC 4.40 10^6/uL (4.36-5.78); RDW 13.1 % (11.8-14.1); RDW-SD 44.9 fL; WBC 10.44 10^3/uL (4.4-10.8)
[2025-08-30 11:40] LABS: INR 1.0 (0.9-1.1); Prothrombin Time 10.4 sec (9.1-11.1)
[2025-08-30 11:43] LABS: PTT Activated 23.7 sec (20.6-30.2)
[2025-08-30 11:57] LABS: ALT 45 U/L (16-63); AST 25 U/L (15-37); Albumin 4.1 g/dL (3.4-5.0); Alkaline Phosphatase 111 U/L (46-116); Anion Gap 11.8 mmol/L (3-11); BUN 46 mg/dL (7-18); Bilirubin, Total 0.8 mg/dL (0.2-1.0); CO2 25.2 mmol/L (21.0-32.0); Calcium 9.2 mg/dL (8.5-10.1); Chloride 100 mmol/L (98-107); Estimated GFR 40.50 (mL/min/1.73m2); Glucose 107 mg/dL (74-106); NT-proBNP 1636 pg/mL (<300); Potassium 4.0 mmol/L (3.5-5.1); Sodium 137 mmol/L (136-145); TSH (W/Ref FT4) 0.63 uIU/mL (0.36-3.74); Total Protein 7.6 g/dL (6.4-8.2); Troponin I 12 ng/L (<or=76)
[2025-08-30] MEDS: Normal Saline Flush 10 ML SYR IVP ×2 (12:08→20:21)
[2025-08-30] MEDS: Omnipaque 350 MG/ML 100 ML BTL IJ (12:08)
[2025-08-30] MEDS: Normal Saline - Diluent 50 ML VIAL IJ (12:08)
[2025-08-30 12:37] LABS: Troponin I 10 ng/L (<or=76)
--- NOTE | 2025-08-30 14:02 | W.ED.GENAD ---
Discharge Plan Disposition Patient Disposition: Admit to [facility] Condition: Good Discharge Details Clinical Impression: Chest pain, Near syncope Primary Care Provider: Fernanda,Local ED Provider: Grady Peralta Home Meds and New Rx's Prescriptions: No Action melatonin 10 mg capsule 10 mg PO HS metoprolol succinate 50 mg tablet extended release 24 hr 125 mg PO .nightly mirabegron [Myrbetriq] 25 mg tablet extended release 24 hr 25 mg PO DAILY Probiotic 3 billion cell capsule 3,000 mmu cells PO DAILY Rx Instructions: administer with a meal acetaminophen 500 mg capsule 1,000 mg PO Q8H spironolactone 25 mg tablet 25 mg PO DAILY Qty: 30 0RF bumetanide 1 mg tablet 1 mg PO BID Rx Instructions: 1 mg in AM and 0.5mg In evening clopidogrel 75 mg tablet 75 mg PO DAILY dapagliflozin propanediol [Farxiga] 10 mg tablet 10 mg PO DAILY melatonin 10 mg capsule 10 mg PO QHS venlafaxine [Effexor XR] 75 mg capsule,extended release 24hr 37.5 mg PO DAILY diclofenac sodium 3 % Gel 100 g topical QID PRN atorvastatin 80 mg Tablet 80 mg PO QPM tamsulosin 0.4 mg Capsule 0.4 mg PO HS amitriptyline 10 mg Tablet 20 mg PO DAILY ascorbic acid (vitamin C) [Vitamin C] 1,000 mg Tablet 1,000 mg PO DAILY aspirin 81 mg Tablet 81 mg PO DAILY multivitamin Capsule 1 cap PO DAILY magnesium oxide 400 mg (241.3 mg magnesium) tablet 400 mg PO BID HPI General Date/Time Provider Initiated Documentation: 08/30/25 11:10. HPI Narrative: This is a 80-year-old male with a past medical history of atrial fibrillation, prostatic cancer with chronic urinary catheter, Watchman procedure performed 3 years ago with subsequent plugging on 09 August 2025, was on aspirin and Plavix, with an additional past medical history of high cholesterol, who presents today for 1 month of lightheadedness, chest tightness with activity and near syncope. Patient states that 1 month ago he felt feeling slightly lightheaded, shortly around the time of the plugging procedure. Over the next few weeks he noticed that whenever he had activity he developed some chest tightness, which would immediately go away with rest. Then over the last few days he has also had a few intermittent episodes of near syncope feeling notably lightheaded like he was going to fall. All of these episodes occur with activity, and he has no symptoms while at rest. Of note over the last month he did have an initial increase of his Effexor, and did become slightly symptomatic with these prior mentioned symptoms. 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 He is currently on 125 of metoprolol nightly. Patient denies history of cardiac stenting. He denies vomiting or diarrhea. He denies fever or chills. He denies headache or neck pain. No other complaints at this time. He denies any falls or trauma. He denies any chest pain at rest. He denies any tearing or ripping sensation. He denies any other complaints. The chest pain when it does occur with activity is described as a mild tightness, with no stabbing tearing or ripping sensation. Related Data Home Medications ?Medication ?Instructions ?Recorded ?Confirmed amitriptyline 10 mg tablet 20 mg PO DAILY 05/02/21 08/30/25 atorvastatin 80 mg tablet 80 mg PO QPM 05/02/21 08/30/25 tamsulosin 0.4 mg capsule 0.4 mg PO HS 05/02/21 08/30/25 ascorbic acid (vitamin C) 1,000 mg 1,000 mg PO DAILY 05/03/21 08/30/25 tablet (Vitamin C) aspirin 81 mg tablet 81 mg PO DAILY 05/03/21 08/30/25 multivitamin 1 cap PO DAILY 05/03/21 08/30/25 magnesium oxide 400 mg (241.3 mg 400 mg PO BID 05/17/21 08/30/25 magnesium) tablet lactobacillus combination no.4 3 3,000 mmu cells PO DAILY 04/19/24 08/30/25 billion cell capsule (Probiotic) melatonin 10 mg capsule 10 mg PO HS 04/19/24 08/30/25 metoprolol succinate 50 mg 125 mg PO .nightly 04/19/24 08/30/25 tablet,extended release 24 hr mirabegron 25 mg tablet,extended 25 mg PO DAILY 04/19/24 08/30/25 release 24 hr (Myrbetriq) acetaminophen 500 mg capsule 1,000 mg PO Q8H Bilateral Knee Pain 04/20/24 08/30/25 spironolactone 25 mg tablet 25 mg PO DAILY #30 tabs 04/22/24 08/30/25 bumetanide 1 mg tablet 1 mg PO BID 08/30/25 08/30/25 clopidogrel 75 mg tablet 75 mg PO DAILY 08/30/25 08/30/25 dapagliflozin propanediol 10 mg 10 mg PO DAILY 08/30/25 08/30/25 tablet (Farxiga) diclofenac sodium 3 % topical gel 100 g topical QID PRN 08/30/25 08/30/25 melatonin 10 mg capsule 10 mg PO QHS 08/30/25 08/30/25 venlafaxine 75 mg capsule,extended 37.5 mg PO DAILY 08/30/25 08/30/25 release 24 hr (Effexor XR) Previous Rx's ?Medication ?Instructions ?Recorded spironolactone 25 mg tablet 25 mg PO DAILY #30 tabs 04/22/24 Allergies Allergy/AdvReac Type Severity Reaction Status Date / Time piperacillin (From Zosyn) Allergy Severe Anaphylaxis Unverified 08/30/25 10:58 tazobactam (From Zosyn) Allergy Severe Anaphylaxis Unverified 08/30/25 10:58 General Stated Complaint: Chest Pain VIRIDIANA: 2 Exam Narrative Exam Narrative: 1.Const: Well-nourished, Well-developed, appearing stated age 2.Eyes: PERRL, no conjunctival injection, and symmetrical lids. 3.ENT: Atraumatic external nose and ears. Moist MM. Neck: Symmetric, trachea midline, No thyromegaly. 4.CVS: +S1/S2, Peripheral pulses 2+ and equal in all extremities. Brisk capillary refill in all extremities. 5.RESP: Unlabored respiratory effort. Clear to auscultation bilaterally. No wheezes rales or rhonchi 6.GI: Soft, Nontender/Nondistended, No hepatosplenomegaly. No guarding or rebound. Parsons catheter in place 7.MSK: Normocephalic/Atraumatic, Extremities w/o deformity or ttp No cyanosis or clubbing, Normal movement of all extremities. Trace pitting edema lower extremities bilaterally. No calf tenderness 8.Skin: Warm, Dry. No rashes or lesions. 9.Neuro: regulatory analyst II-XII grossly intact. Sensation grossly intact, no focal neurologic deficits. 10.Psych: (AAO) x3. Appropriate mood and affect Course Vital Signs Vital signs: Vital Signs Temperature 36.3 C L 08/30/25 11:00 Pulse 89 08/30/25 11:00 Respiratory Rate 18 08/30/25 11:00 Blood Pressure 100/69 08/30/25 11:00 Pulse Oximetry 96 08/30/25 11:00 Temperature 36.3 C L 08/30/25 11:00 Temperature Source Tympanic 08/30/25 11:00 Pulse 89 08/30/25 11:00 Respiratory Rate 18 08/30/25 12:02 Respiratory Effort Normal, Non-Labored 08/30/25 12:02 Respiratory Depth Normal 08/30/25 12:02 Respiratory Pattern Normal 08/30/25 12:02 Blood Pressure 100/69 08/30/25 11:00 Blood Pressure Position Sitting 08/30/25 11:00 Pulse Oximetry 96 08/30/25 11:00 Oxygen Delivery Method Room Air 08/30/25 11:00 Oxygen Flow Rate 0 08/30/25 11:00 Pain Level 0 08/30/25 11:00 Lab/Test Results Lab/Test Results: Laboratory Tests Range/Units 08/30/25 08/30/25 08/30/25 11:18 11:20 12:00 WBC (4.4-10.8) 10^3/uL 10.44 RBC (4.36-5.78) 10^6/uL 4.40 Hgb (13.5-17.5) g/dL 13.8 Hct (40.0-50.0) % 41.1 MCV (80-95) fL 93 MCH (27.0-33.0) pg 31.4 MCHC (32.0-36.0) % 33.6 RDW (11.8-14.1) % 13.1 Plt Count (130-400) 10^3/uL 178 MPV (8.0-11.0) fL 9.8 Immature Gran % % 0.7 Neutrophils % % 69.6 Lymphocytes % % 17.0 Monocytes % % 10.2 Eosinophils % % 2.3 Basophils % % 0.2 Nucleated RBC % (0.0-0.3) % 0.0 Absolute Neutrophils (1.2-6.7) 10^3/uL 7.27 H Absolute Lymphocytes (1.2-3.4) 10^3/uL 1.78 Absolute Monocytes (0.1-0.8) 10^3/uL 1.06 H Absolute Eosinophils (0.0-0.7) 10^3/uL 0.24 Absolute Basophils (0.0-0.2) 10^3/uL 0.02 PT (9.1-11.1) sec 10.4 INR (0.9-1.1) 1.0 APTT (20.6-30.2) sec 23.7 Sodium (136-145) mmol/L 137 Potassium (3.5-5.1) mmol/L 4.0 Chloride (98-107) mmol/L 100 Carbon Dioxide (21.0-32.0) mmol/L 25.2 Anion Gap (3-11) mmol/L 11.8 H BUN (7-18) mg/dL 46 H Creatinine (0.70-1.30) mg/dL 1.7 H Est GFR (CKD-EPI 2020) (mL/min/1.73m2) 40.50 Glucose (74-106) mg/dL 107 H Calcium (8.5-10.1) mg/dL 9.2 Total Bilirubin (0.2-1.0) mg/dL 0.8 AST (15-37) U/L 25 ALT (16-63) U/L 45 Alkaline Phosphatase (46-116) U/L 111 Troponin I (<or=76) ng/L 12 10 NT-Pro-B Natriuret Pep (<300) pg/mL 1636 H Total Protein (6.4-8.2) g/dL 7.6 Albumin (3.4-5.0) g/dL 4.1 TSH (0.36-3.74) uIU/mL 0.63 Medical Decision Making This is a 80-year-old male with a past medical history of atrial fibrillation, prostatic cancer with chronic urinary catheter, Watchman procedure performed at [facility] 3 years ago with subsequent plugging on 09 August 2025, was on aspirin and Plavix, with an additional past medical history of high cholesterol, who presents today for 1 month of lightheadedness, chest tightness with activity and near syncope. Patient states that 1 month ago he felt feeling slightly lightheaded, shortly around the time of the plugging procedure. Over the next few weeks he noticed that whenever he had activity he developed some chest tightness, which would immediately go away with rest. Then over the last few days he has also had a few intermittent episodes of near syncope feeling notably lightheaded like he was going to fall. All of these episodes occur with activity, and he has no symptoms while at rest. Of note over the last month he did have an initial increase of his Effexor, and did become slightly symptomatic with these prior mentioned symptoms. 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 He is currently on 125 of metoprolol nightly. Patient denies history of cardiac stenting. He denies vomiting or diarrhea. He denies fever or chills. He denies headache or neck pain. No other complaints at this time. He denies any falls or trauma. He denies any chest pain at rest. He denies any tearing or ripping sensation. He denies any other complaints. The chest pain when it does occur with activity is described as a mild tightness, with no stabbing tearing or ripping sensation. Exam demonstrates well-appearing male, stable vital signs, no tachycardia, hypotension or evidence of shock. Trace pitting edema is present, no calf tenderness so. EKG shows atrial fibrillation with a right bundle branch block, bundle branch block is present from prior EKG. However slight atypical inversion/depression of T waves in V3 through V5, as well as send atypical ST component in leads III and aVF however this does not demonstrate the characteristics suggestive of his inferior STEMI, as the true T wave is inverted and not elevated, rather instead it appears to represent an atypical morphology of the QRS segment in leads III and aVF. These atypical elevations and inverted T waves are noted on prior EKG on 04/19/2024. Differential is broad but includes cardiac dysrhythmia, cardiac abnormality/ACS, PE, electrolyte abnormality. Will evaluate for these etiologies, monitor closely and reassess. 4:21 PM Laboratory workup has returned, no white count or bandemia. Electrolytes stable, renal function is actually improved compared to prior. proBNP is slightly elevated at 1600, but does appear to be around baseline. Serial troponins are stable. Thyroid function stable. CT scan shows no evidence of pulmonary emboli, there is a small amount of increased lung markings, but no evidence of infarct or infiltrate. Ascending aorta is 4.1 cm, but no other acute process. There is a left atrial appendage device noted which is expected from the watchman's procedure. Patient has remained stable here hemodynamically. With his near syncope, exertional chest discomfort, and lightheadedness at exertion, I am concerned that this certainly does put him at high risk component, especially with his risk factors and cardiac history. Unfortunately we do not have any stress testing capability until Thursday. I did reach out to [facility] and discussed the case with cardiology. They to feel that the patient is certainly concerning in his history and would benefit from stress testing. [facility] has excepted, however holding date is until the . Patient has been accepted with Dr. Navarro at [facility]. Cardiology does feel that holding the metoprolol for a day or so may be reasonable to see if this affects his lightheadedness or near syncope. Discussed the case with the hospitalist Dr. Bahena, he agrees with the assessment and plan and accepts the patient for admission and holding until transfer to [facility]. I have extensively reviewed the treatment plan with the patient. I have addressed all patient concerns at this time. I have also discussed the plan with the admitting physician and they agree with the current assessment and plan and have agreed to assume responsibility for the patient. All parties demonstrate verbal understanding and agreement with our assessment and plan at this time. The documentation in this chart was dictated using [employer] dictation software. Please excuse any dictation errors. FINDINGS: CHEST: PULMONARY ARTERIES: There are no intraluminal filling defects to suggest acute pulmonary emboli. LUNGS: Right lung is clear. There are mild increased markings in left lower lobe posterior basal segment. Also mild platelike atelectasis at this level. No pleural effusions. No findings in trachea and mainstem bronchi.. MEDIASTINUM: There is no hilar nor mediastinal adenopathy. Abnormal appearing thyroid gland. The right thyroid lobe is enlarged and contains dominant nodules. CARDIAC: There is a device in the superior aspect of the left side of the heart which was not evident on prior CT scan of 2014. This is in left atrial appendage. Patient has apparently had a prior Watchmans procedure. The diameter of the ascending thoracic aorta is enlarged measuring 4.1 cm. Cannot assess for dissection as there is no intravenous contrast in the aorta. All the contrast is in the pulmonary vasculature. There is no significant shift of the interventricular septum. There is some contrast reflux into the intrahepatic IVC and hepatic veins evident. PARTIALLY VISUALIZED UPPERMOST ABDOMEN: No obvious findings OSSEOUS: No fractures. No significant osseous lesions. Multilevel chronic degenerative disc disease.. IMPRESSION: 1. No evidence of acute pulmonary emboli. Mild increased markings are noted in the left lower lobe posterior basal segment but no confluent infiltrate nor pleural effusion nor obvious pulmonary infarction. 2. Enlarged ascending thoracic aorta with diameter 4.1 cm. No pericardial effusion. Cannot assess for dissection as there is no IV contrast in the thoracic aorta. 3. There is a device in left atrial appendage of the heart noted which was not previously present 2014. patient has apparently had a [employer]'s procedure Report called by myself to ER physician 08/30/2025 at 1:01 p.m. [facility] All Active Problems (Updated 08/30/25 @ 16:26 by Grady Peralta DO) Near syncope (Acute) Chest pain (Acute) Heart failure (Acute) Fatigue (Acute) Allergic reaction caused by a drug (Acute) Atrial fibrillation (Chronic) Abdominal pain (Acute) Choledocholithiasis (Acute) Medical History Ventral hernia 2017- repaired Chronic anticoagulation a fib Prostate cancer 2017 Radiation, follows with urology (Dr. Kinsey) Kidney malignancy 2017- removed part of kidney, left- sees urology in [place] (Dr. Kinsey) Surgical History S/P rotator cuff repair around 2009- bilateral shoulders History of kidney surgery 2017, left 1/3 removed H/O ventral hernia repair History of cardiac catheterization unsure of date Social History Smoking/Tobacco Use Status: Never Smoking risk assessment performed?: Yes Alcohol Intake: current Alcohol Intake frequency: a few times a week Drug use: Never Substance use type: does not use Housing: house Do you feel safe at home: Yes Do you feel safe in your relationship?: Yes PAWSS Have you Been Recently Intoxicated or Drunk Within the Last 30 days?: No Have you Ever Experienced Previous Episodes of Alcohol Withdrawal?: No Have you ever Experienced Withdrawal Seizures?: No Have you ever Experienced Delirium Tremens(DT)s?: No Have you ever undergone Alcohol Rehabilitation Treatment (i.e, inpt ot outpatient treatment programs)?: No Have you ever Experienced Blackouts?: No Have you ever Combined Alcohol with other Downers within the last 90 days?: No Have you ever Combined Alcohol with any other Substance of Abuse during the last 90 days?: No Result: 0 POCUS Exam (ED) Limited Cardiac Exam DATE OF EXAM: 08/30/25 TIME OF EXAM: 16:26 PROVIDER THAT PERFORMED THE STUDY: Grady Peralat IS THIS A REPEAT EXAM DURING THIS ENCOUNTER: no REASON FOR EXAM: Chest pain VISUALIZED STRUCTURES: Left atrium, Left ventricle, Right ventricle and Interventricular septum VIEW OBTAINED: Parasternal long-axis PERTINENT FINDINGS/IMPRESSION: No apparent abnormalities Exam complete
[2025-08-30 14:43] LABS: Troponin I 10 ng/L (<or=76)
--- NOTE | 2025-08-30 16:44 | W.PM.HP.N ---
Date of service: 08/30/25 Time of Service: 16:48 Assessment and Plan Assessment and plan (1) Chest pain: Status: Acute Assessment and plan: - Given description of substernal chest pain occurring with exertion, relieved with rest, and associated with near syncopal episodes, high suspicion for development of stable angina and progression to ACS - Emergency department EKG was unremarkable and troponins negative - Patient accepted to [facility] cardiology for further cardiac workup as nuclear stress test is unavailable at this facility until 09/04/2025 - Further recommendations by cardiology at [facility] include echocardiogram and daily serial troponins, monitoring on telemetry - Excepting [facility] physician Dr. Navarro (2) Near syncope: Status: Acute Assessment and plan: - Presumed to be secondary to chest pain as noted above (3) Atrial fibrillation: Status: Chronic Assessment and plan: - Continue home aspirin and clopidogrel after declogging procedure - Continue home metoprolol (4) Chronic indwelling Parsons catheter: Status: Acute Assessment and plan: - Secondary to prostate cancer History of Present Illness History of Present Illness Chief Complaint: chest pain Narrative: 80-year-old male with a past medical history of A-fib status post watchman 3 years ago with subsequent plugging August 09, 2025 on aspirin and Plavix, prostate cancer with chronic Parsons catheter who presented emergency department with about a month of light headedness, chest tightness with activity and near syncope. Patient states that beginning about a month ago he started feel somewhat lightheaded which is around the time he had his plugging procedure. Over the subsequent few weeks he noticed that with activity he would develop some chest tightness that would go away with rest. However, over the last few days he had few episodes of near syncope feeling significantly lightheaded that he was going to fall although he did not fall or hit his head. Each of these episodes occurred with activity and patient did not have any symptoms at rest. He does not have any history of known coronary artery disease or stenting, denies any shortness of breath, nausea, vomiting, neck arm or back pain. In the emergency department patient was noted to have normal vital signs, normal CBC, normal CMP and negative troponin. Additionally, EKG was without ST elevations, ST depressions or T wave inversions. Chest CT was performed and was also without any acute findings. However, given her multiple episodes of near syncope with exertional chest pain ED provider thought patient would benefit from nuclear stress test. However, services are unavailable here at [facility] until 07/05/2025. Emergency room provider then reach out to [facility] who accepted the patient for transfer likely on Thursday to continue cardiac workup including nuclear stress test. At which time emergency room provider paged hospitalist for admission for patient was chest pain requiring further cardiac workup and subsequent transfer to [facility]. Review of Systems All systems reviewed & are unremarkable except as noted in HPI and below PFSH All Active Problems (Updated 08/30/25 @ 16:54 by Mikhial Bahena MD) Chronic indwelling Parsons catheter (Acute) Near syncope (Acute) Chest pain (Acute) Heart failure (Acute) Fatigue (Acute) Allergic reaction caused by a drug (Acute) Atrial fibrillation (Chronic) Abdominal pain (Acute) Choledocholithiasis (Acute) Medical History Ventral hernia 2017- repaired Chronic anticoagulation a fib Prostate cancer 2017 Radiation, follows with urology (Dr. Kinsey) Kidney malignancy 2017- removed part of kidney, left- sees urology in [place] (Dr. Kinsey) Surgical History S/P rotator cuff repair around 2009- bilateral shoulders History of kidney surgery 2017, left 1/3 removed H/O ventral hernia repair History of cardiac catheterization unsure of date Social History Smoking/Tobacco Use Status: Never Smoking risk assessment performed?: Yes Alcohol Intake: current Alcohol Intake frequency: a few times a week Drug use: Never Substance use type: does not use Housing: house Do you feel safe at home: Yes Do you feel safe in your relationship?: Yes Meds Allergies and Home Medications Allergies Allergy/AdvReac Type Severity Reaction Status Date / Time piperacillin (From Zosyn) Allergy Severe Anaphylaxis Unverified 08/30/25 10:58 tazobactam (From Zosyn) Allergy Severe Anaphylaxis Unverified 08/30/25 10:58 Home Medications ?Medication ?Instructions ?Recorded ?Confirmed ?Type amitriptyline 10 mg tablet 20 mg PO DAILY 05/02/21 08/30/25 History atorvastatin 80 mg tablet 80 mg PO QPM 05/02/21 08/30/25 History tamsulosin 0.4 mg capsule 0.4 mg PO HS 05/02/21 08/30/25 History ascorbic acid (vitamin C) 1,000 mg 1,000 mg PO DAILY 05/03/21 08/30/25 History tablet (Vitamin C) aspirin 81 mg tablet 81 mg PO DAILY 05/03/21 08/30/25 History multivitamin 1 cap PO DAILY 05/03/21 08/30/25 History magnesium oxide 400 mg (241.3 mg 400 mg PO BID 05/17/21 08/30/25 History magnesium) tablet lactobacillus combination no.4 3 3,000 mmu cells PO DAILY 04/19/24 08/30/25 History billion cell capsule (Probiotic) melatonin 10 mg capsule 10 mg PO HS 04/19/24 08/30/25 History metoprolol succinate 50 mg 125 mg PO .nightly 04/19/24 08/30/25 History tablet,extended release 24 hr mirabegron 25 mg tablet,extended 25 mg PO DAILY 04/19/24 08/30/25 History release 24 hr (Myrbetriq) acetaminophen 500 mg capsule 1,000 mg PO Q8H Bilateral Knee Pain 04/20/24 08/30/25 History spironolactone 25 mg tablet 25 mg PO DAILY #30 tabs 04/22/24 08/30/25 Rx bumetanide 1 mg tablet 1 mg PO BID 08/30/25 08/30/25 History clopidogrel 75 mg tablet 75 mg PO DAILY 08/30/25 08/30/25 History dapagliflozin propanediol 10 mg 10 mg PO DAILY 08/30/25 08/30/25 History tablet (Farxiga) diclofenac sodium 3 % topical gel 100 g topical QID PRN 08/30/25 08/30/25 History melatonin 10 mg capsule 10 mg PO QHS 08/30/25 08/30/25 History venlafaxine 75 mg capsule,extended 37.5 mg PO DAILY 08/30/25 08/30/25 History release 24 hr (Effexor XR) Exam Narrative Exam Narrative: Well-appearing gentleman lying in bed in no acute distress, ANO x 4, heart regular rhythm, lungs clear to auscultation bilaterally, abdomen soft, nontender, nondistended Results Labs 08/30/25 11:18 08/30/25 11:18 Labs: Laboratory Results - last 24 hr 08/30/25 08/30/25 08/30/25 11:18 11:20 12:00 WBC 10.44 RBC 4.40 Hgb 13.8 Hct 41.1 MCV 93 MCH 31.4 MCHC 33.6 RDW 13.1 Plt Count 178 MPV 9.8 Immature Gran % 0.7 Neutrophils % 69.6 Lymphocytes % 17.0 Monocytes % 10.2 Eosinophils % 2.3 Basophils % 0.2 Nucleated RBC % 0.0 Absolute Neutrophils 7.27 H Absolute Lymphocytes 1.78 Absolute Monocytes 1.06 H Absolute Eosinophils 0.24 Absolute Basophils 0.02 PT 10.4 INR 1.0 APTT 23.7 Sodium 137 Potassium 4.0 Chloride 100 Carbon Dioxide 25.2 Anion Gap 11.8 H BUN 46 H Creatinine 1.7 H Est GFR (CKD-EPI 2020) 40.50 Glucose 107 H Calcium 9.2 Total Bilirubin 0.8 AST 25 ALT 45 Alkaline Phosphatase 111 Troponin I 12 10 NT-Pro-B Natriuret Pep 1636 H Total Protein 7.6 Albumin 4.1 TSH 0.63 08/30/25 14:15 WBC RBC Hgb Hct MCV MCH MCHC RDW Plt Count MPV Immature Gran % Neutrophils % Lymphocytes % Monocytes % Eosinophils % Basophils % Nucleated RBC % Absolute Neutrophils Absolute Lymphocytes Absolute Monocytes Absolute Eosinophils Absolute Basophils PT INR APTT Sodium Potassium Chloride Carbon Dioxide Anion Gap BUN Creatinine Est GFR (CKD-EPI 2020) Glucose Calcium Total Bilirubin AST ALT Alkaline Phosphatase Troponin I 10 NT-Pro-B Natriuret Pep Total Protein Albumin TSH Last Vital Signs Temp 97.3 F L 08/30/25 11:00 Pulse 89 08/30/25 11:00 Resp 18 08/30/25 12:02 BP 100/69 08/30/25 11:00 Pulse Ox 96 08/30/25 11:00 PAWSS Have you Been Recently Intoxicated or Drunk Within the Last 30 days?: No Have you Ever Experienced Previous Episodes of Alcohol Withdrawal?: No Have you ever Experienced Withdrawal Seizures?: No Have you ever Experienced Delirium Tremens(DT)s?: No Have you ever undergone Alcohol Rehabilitation Treatment (i.e, inpt ot outpatient treatment programs)?: No Have you ever Experienced Blackouts?: No Have you ever Combined Alcohol with other Downers within the last 90 days?: No Have you ever Combined Alcohol with any other Substance of Abuse during the last 90 days?: No Result: 0 Time Spent Time spent with Patient: >75 minutes Time was spent: preparing to see the patient(eg.review tests), obtaining and/or reviewing separately otained hiistory, ordering medications,tests, procedures, referring, communicating with other health home care giver, indepentently interpreting results, counseling the patient and care coordination
--- NOTE | 2025-08-30 18:13 | W.PC.ACHO ---
Registration Status: ADM IN Primary Language: Preferred Language: Armenian ED Information & Data Chief Complaint Chest Pain 08/30/25 14:10 Triage Note Pt had a watchmans procedure 08/30/25 11:00 on August 09- since then has been falling, dizziness, weakness, diaphoretic episodes, hot sweats, periods of tightness in the left side of his chest that come on and go away rapidly Medical / Surgical History (Last Reviewed 04/19/24 @ 07:33 by Juan Daniel Sanford MD) Chronic kidney disease (CKD) Radiation proctitis Coronary artery arteriosclerosis Ventral hernia Chronic anticoagulation Prostate cancer Kidney malignancy (Last Reviewed 04/19/24 @ 07:33 by Juan Daniel Sanford MD) S/P rotator cuff repair History of kidney surgery H/O ventral hernia repair History of cardiac catheterization Most Recent Vital Signs Temperature 35.7 C L 08/30/25 18:06 Temperature Source Temporal Artery Scan 08/30/25 18:06 Pulse 53 L 08/30/25 18:06 Pulse 77 08/30/25 17:45 Respiratory Rate 16 08/30/25 18:06 Respiratory Effort Normal, Non-Labored 08/30/25 12:02 Respiratory Depth Normal 08/30/25 12:02 Respiratory Pattern Normal 08/30/25 12:02 Blood Pressure 112/74 08/30/25 18:06 Blood Pressure Mean 86 08/30/25 18:06 Blood Pressure Position Sitting 08/30/25 11:00 Pulse Oximetry 99 08/30/25 18:06 Oxygen Delivery Method Room Air 08/30/25 18:06 Oxygen Flow Rate 0 08/30/25 18:06 Pain Level 0 08/30/25 18:06 Allergies piperacillin (From Zosyn) Allergy (Severe, Unverified 08/30/25 10:58) Anaphylaxis tazobactam (From Zosyn) Allergy (Severe, Unverified 08/30/25 10:58) Anaphylaxis Precautions Isolation Standard precaution 08/30/25 12:02 Active Medications Generic Name Dose Route Start Last Admin Trade Name Freq PRN Reason Stop Dose Admin Iohexol 100 ml 08/30/25 12:15 08/30/25 12:08 Omnipaque 350 Mg/Ml 100 Ml Btl IJ 09/29/25 23:59 100 ml DIRECTED DOROTHY Administration Sodium Chloride 50 ml 08/30/25 12:15 08/30/25 12:08 Normal Saline - Diluent 50 Ml Vial IJ 50 ml DIRECTED DOROTHY Administration Sodium Chloride 0 ml 08/30/25 12:07 08/30/25 12:08 Normal Saline Flush 10 Ml Syr IVP 10 ml PRN PRN Administration IV IV Catheter Type [Right Wrist] Saline Lock IV Catheter Gauge [Right Wrist 18 ] Diagnostics 08/30/25 08/30/25 08/30/25 Range/Units 14:15 12:00 11:20 WBC (4.4-10.8) 10^3/uL RBC (4.36-5.78) 10^6/uL Hgb (13.5-17.5) g/dL Hct (40.0-50.0) % MCV (80-95) fL MCH (27.0-33.0) pg MCHC (32.0-36.0) % RDW (11.8-14.1) % Plt Count (130-400) 10^3/uL MPV (8.0-11.0) fL Immature Gran % % Neutrophils % % Lymphocytes % % Monocytes % % Eosinophils % % Basophils % % Nucleated RBC % (0.0-0.3) % Absolute Neutrophils (1.2-6.7) 10^3/uL Absolute Lymphocytes (1.2-3.4) 10^3/uL Absolute Monocytes (0.1-0.8) 10^3/uL Absolute Eosinophils (0.0-0.7) 10^3/uL Absolute Basophils (0.0-0.2) 10^3/uL PT 10.4 (9.1-11.1) sec INR 1.0 (0.9-1.1) APTT (20.6-30.2) sec Sodium (136-145) mmol/L Potassium (3.5-5.1) mmol/L Chloride (98-107) mmol/L Carbon Dioxide (21.0-32.0) mmol/L Anion Gap (3-11) mmol/L BUN (7-18) mg/dL Creatinine (0.70-1.30) mg/dL Est GFR (CKD-EPI 2020) (mL/min/1.73m2) Glucose (74-106) mg/dL Calcium (8.5-10.1) mg/dL Total Bilirubin (0.2-1.0) mg/dL AST (15-37) U/L ALT (16-63) U/L Alkaline Phosphatase (46-116) U/L Troponin I 10 10 (<or=76) ng/L NT-Pro-B Natriuret Pep (<300) pg/mL Total Protein (6.4-8.2) g/dL Albumin (3.4-5.0) g/dL TSH (0.36-3.74) uIU/mL 08/30/25 Range/Units 11:18 WBC 10.44 (4.4-10.8) 10^3/uL RBC 4.40 (4.36-5.78) 10^6/uL Hgb 13.8 (13.5-17.5) g/dL Hct 41.1 (40.0-50.0) % MCV 93 (80-95) fL MCH 31.4 (27.0-33.0) pg MCHC 33.6 (32.0-36.0) % RDW 13.1 (11.8-14.1) % Plt Count 178 (130-400) 10^3/uL MPV 9.8 (8.0-11.0) fL Immature Gran % 0.7 % Neutrophils % 69.6 % Lymphocytes % 17.0 % Monocytes % 10.2 % Eosinophils % 2.3 % Basophils % 0.2 % Nucleated RBC % 0.0 (0.0-0.3) % Absolute Neutrophils 7.27 H (1.2-6.7) 10^3/uL Absolute Lymphocytes 1.78 (1.2-3.4) 10^3/uL Absolute Monocytes 1.06 H (0.1-0.8) 10^3/uL Absolute Eosinophils 0.24 (0.0-0.7) 10^3/uL Absolute Basophils 0.02 (0.0-0.2) 10^3/uL PT (9.1-11.1) sec INR (0.9-1.1) APTT 23.7 (20.6-30.2) sec Sodium 137 (136-145) mmol/L Potassium 4.0 (3.5-5.1) mmol/L Chloride 100 (98-107) mmol/L Carbon Dioxide 25.2 (21.0-32.0) mmol/L Anion Gap 11.8 H (3-11) mmol/L BUN 46 H (7-18) mg/dL Creatinine 1.7 H (0.70-1.30) mg/dL Est GFR (CKD-EPI 2020) 40.50 (mL/min/1.73m2) Glucose 107 H (74-106) mg/dL Calcium 9.2 (8.5-10.1) mg/dL Total Bilirubin 0.8 (0.2-1.0) mg/dL AST 25 (15-37) U/L ALT 45 (16-63) U/L Alkaline Phosphatase 111 (46-116) U/L Troponin I 12 (<or=76) ng/L NT-Pro-B Natriuret Pep 1636 H (<300) pg/mL Total Protein 7.6 (6.4-8.2) g/dL Albumin 4.1 (3.4-5.0) g/dL TSH 0.63 (0.36-3.74) uIU/mL Intake and Output - 24 Hour Total 08/30/25 10:54 thru 08/30/25 11:00 Weight 126.552 kg Falls Risk Assessment History of Falls No History 08/30/25 12:02 Fall Total Score 0 08/30/25 12:02 Level of Risk Standard/Low Risk 08/30/25 12:02 Problems (Last Reviewed 04/19/24 @ 07:33 by Juan Daniel Sanford MD) Chronic indwelling Parsons catheter (Acute) Near syncope (Acute) Chest pain (Acute) Atrial fibrillation (Chronic) v v v v v v v v v Sending and/or Receiving Nurses: Please use comment section below to note any information pertinent to the patient hand-off not included above. Information / Comments: Report received from: having multiple syncopal episodes, dizzy when standing, 112/74, 99%, 53, 36.7C, 18, has chronic tayler Toney RN
[2025-08-30] MEDS: Melatonin 3 MG TAB 9 MG PO (20:19)
[2025-08-30] MEDS: Metoprolol CR 50 MG TABCR 125 MG PO (20:19)
[2025-08-30] MEDS: Atorvastatin 40 MG TAB 80 MG PO (20:20)
[2025-08-30] MEDS: Tamsulosin 0.4 MG CAPCR PO (20:21)
[2025-08-31 03:50] VITALS: BP 93/76; PULSE 81; RESP 18; TEMP 35.8; O2SAT 99
[2025-08-31 06:16] LABS: HCT 41.4 % (40.0-50.0); HGB 13.9 g/dL (13.5-17.5); MCH 32.3 pg (27.0-33.0); MCHC 33.6 % (32.0-36.0); MCV 96 fL (80-95); MPV 9.9 fL (8.0-11.0); Platelet Count 153 10^3/uL (130-400); RBC 4.30 10^6/uL (4.36-5.78); RDW 13.1 % (11.8-14.1); RDW-SD 45.9 fL; WBC 7.48 10^3/uL (4.4-10.8)
[2025-08-31 06:43] LABS: Anion Gap 11.4 mmol/L (3-11); BUN 35 mg/dL (7-18); CO2 27.6 mmol/L (21.0-32.0); Calcium 9.3 mg/dL (8.5-10.1); Chloride 102 mmol/L (98-107); Estimated GFR 47.06 (mL/min/1.73m2); Glucose 109 mg/dL (74-106); Magnesium 2.7 mg/dL (1.8-2.4); Potassium 3.6 mmol/L (3.5-5.1); Sodium 141 mmol/L (136-145); Troponin I 11 ng/L (<or=76)
[2025-08-31 07:46] VITALS: BP 82/58; PULSE 76; RESP 16; TEMP 35.8; O2SAT 99
--- NOTE | 2025-08-31 08:17 | PDOC.CMIN ---
Date of service: 08/31/25 Time of Service: 08:17 Care Management Initial Assmt Initial Assessment Reason for Hospitalization: Atypical chest pain Functional Status/Living Situation Patient Presentation: Mando was sitting up in bed when CM met with him and was polite and easily engaged in conversation. He is admitted with atypical chest pain and is pending transfer to a tertiary hospital, tomorrow. CM will continue to follow. He drives and is independent at baseline. He has a home in [facility] and another in [place], [place]. He lives with his s/o Amaris (whom is retired nurse) and divides his time between both homes. Per pt, all his medical care is located in [facility] (see updated provider list.) He has a chronic lester and travels back to [facility] each month for follow up appointments and a lester change. [facility] not [facility]. 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 Town of Residence: [place] Resides with: Spouse (S/O Amaris) Significant Other/Family: Out of area (2 sons, live out of state. Maintains a relationship with his youngest son. 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) Instrumental Activities of Daily Living (ADLs): Independent Medications Medication Management: No Issues/Barriers identified Physical Functioning/Mobility Assistive Device: Has a cane Advance Directives Advance Directives: Do you have an Advance Directive: Y 11/14/15, 06:46 AD On File at [facility]: N 11/14/15, 00:38 Date Asked 08/30/25 08/30/25, 10:59 AD Date Reviewed COLST On File at [facility] COLST Date Scanned Code Status Resuscitation Status Full Code Portal Pt does not currently have a portal and education provided: Yes Insurance Coverage/Financial Issues Insurance: [employer] [place] Adv - [id number] Financial Issues: None, per pt Care Team Visit Care Team Role Provider Type Nehemiah Rodriguez MD MD [facility] STAFF PHYSICIAN Local No Primary Care Provider NON-[facility] STAFF PHYSICIAN Grady Peralta DO Emergency Provider [facility] STAFF PHYSICIAN Mikhail Bahena MD Admit Provider [facility] STAFF PHYSICIAN Attending Provider Discharge Anticipated Barriers to Discharge: None Identified and Medical Status Patient/Family Education Needs: Review discharge instructions, discuss Ask Me Three Transportation: EMS Plan: Mando will be transferred to a tertiary care facility. Transportation will be via EMS coordinated by RN insurance licensing supervisor. CM will follow. Social Determinants of Health Screening Social Determinants of health last assessed in clinic: 08/31/25 Will the Patient Participate in the Screening?: Yes Do you worry about having a steady place to live?: no Problems where you live: no known problems In the past 12 months, have you had to go without electric, gas, oil or water in your home?: no 1. Within the past 12 months, we worried whether our food would run out before we got money to buy more.: Never true 2. Within the past 12 months, the food we bought just didn't last and we didn't have money to get more.: Never true Has lack of transportation kept you from medical appointments or from doing things needed for daily living?: no Has anyone in your life made you feel unsafe or unsupported?: no How hard is it for you to pay for the very basics like food, housing, medical care, and heating? Would you say it is:: Not hard at all Do you want help finding or keeping work or a job?: I do not need or want help If for any reason you need help with day-to-day activities such as bathing, preparing meals, shopping, managing finances, etc., do you get the help you need?: I don?t need any help How often do you feel lonely or isolated from those around you?: Never Do you speak a language other than Vietnamese at home?: No PFSH All Active Problems (Updated 08/30/25 @ 18:02 by TARIQ RODRIGUEZ) Chronic indwelling Lester catheter (Acute) Near syncope (Acute) Chest pain (Acute) Heart failure (Acute) Fatigue (Acute) Allergic reaction caused by a drug (Acute) Atrial fibrillation (Chronic) Abdominal pain (Acute) Choledocholithiasis (Acute) Medical History Ventral hernia 2017- repaired Chronic anticoagulation a fib Prostate cancer 2017 Radiation, follows with urology (Dr. Kinsey) Kidney malignancy 2017- removed part of kidney, left- sees urology in [place] (Dr. Kinsey) Surgical History S/P rotator cuff repair around 2009- bilateral shoulders History of kidney surgery 2017, left 1/3 removed H/O ventral hernia repair History of cardiac catheterization unsure of date Social History Smoking/Tobacco Use Status: Never Smoking risk assessment performed?: Yes Alcohol Intake: current Alcohol Intake frequency: a few times a week Drug use: Never Substance use type: does not use Housing: house Do you feel safe at home: Yes Do you feel safe in your relationship?: Yes
[2025-08-31 08:20] VITALS: BP 90/68; PULSE 85; RESP 16; TEMP 36.4; O2SAT 97
[2025-08-31] MEDS: Clopidogrel 75 MG TAB PO (08:20)
[2025-08-31] MEDS: Venlafaxine 37.5 MG CAPCR PO (08:20)
[2025-08-31] MEDS: Aspirin 81 MG CHEW PO (08:21)
[2025-08-31] MEDS: Mirabegron 25 MG TABCR PO (08:22)
[2025-08-31] MEDS: Spironolactone 25 MG TAB PO (08:22)
[2025-08-31] MEDS: Normal Saline Flush 10 ML SYR IVP ×2 (08:23→19:41)
--- NOTE | 2025-08-31 10:30 | DI.US_ITS ---
APPROVED REPORT EXAM: Comprehensive 2D, Doppler, and color-flow Echocardiogram Patient Location: In-Patient Room/Bed: 211 Full Charge Bookkeeper: Graciela Mann RDCS (AE) Indications: Atypical chest pain Other Information Study Quality: Fair. Technically limited study due to body habitus. Conclusion Normal left ventricular wall thickness and chamber size. Ejection fraction is 55 to 60%. There are no segmental wall motion abnormalities Normal right ventricular size and function Mildly dilated left atrium. Normal right atrial size There are no structural valvular abnormalities Trace aortic regurgitation Mild mitral and tricuspid regurgitation. Estimated right ventricular systolic pressure is 22 mmHg Ascending aorta measures 4 cm Wall motion Left Ventricle The left ventricle is normal size. The overall left ventricular systolic function appears normal. There is normal left ventricular wall thickness. Regional wall motion is not well visualized but grossly normal. There is no ventricular septal defect visualized. LVEF is 55%. Right Ventricle Right ventricle is grossly normal in size. Right ventricular systolic function is grossly normal. Atria Left atrium is mildly dilated. The right atrium size is normal. The interatrial septum is intact with no evidence for an atrial septal defect. Aortic Valve The aortic valve is normal in structure. Aortic valve is trileaflet. There is no aortic valvular stenosis. Trace aortic regurgitation. Mitral Valve The mitral valve is normal in structure. No evidence of mitral valve stenosis. Mild mitral regurgitation. Tricuspid Valve The tricuspid valve is normal in structure. There is no tricuspid valve stenosis. Mild tricuspid regurgitation. The RVSP is 21.6 mmHg. Pulmonic Valve The pulmonary valve is normal in structure. There is no pulmonic valvular stenosis. Trace pulmonic regurgitation. Great Vessels Aortic root is mildly dilated. The ascending aorta is mildly dilated. Aortic arch is not well visualized. IVC is normal in size and collapses >50% with inspiration. Pericardium There is no pericardial effusion. 2D Dimensions IVSD d PLAX 1.00 cm M: 0.6-1.2 Ao Root d 3.80 cm M: 3.1 - 3.7 LVPW d PLAX 1.05 cm M: 0.6 - 1.2 Ao Asc Diam d 4.00 cm M: 2.6 - 3.4 LVID d PLAX 4.21 cm M: 4.2 - 5.8 LVDs 3.00 cm M: 2.5 - 4.0 LV EF Teichholz 55.7 % FS 28.72 % LV EDV (Teich) 79.0 mL LV ESV (Teich) 35.0 mL M-Mode TAPSE 2.19 cm (M/F) >1.7 LA Volume LA Length A4C 7.4 cm LA Length A2C 7.1 cm LA Area A4C s 30.58 cm2 LA Area A2C s 27.71 cm2 LA Vol A4C A-L 107.68 mL LA Vol A2C A-L 92.46 mL LA Vol Biplane A- L 102.0 mL LA Vol/BSA A4C A-L LA Vol/BSA A2C A-L LA Vol/BSA BP A-L 42.5 mL/m2 LA Vol A4C MOD 100.7 mL LA Vol A2C MOD 87.2 mL LA Vol BP MOD 95.7 mL RA Volume RA Area A4C 19.5 cm2 RA ESV A4C (A-L) 51.4mL RA Vol/BSA A4C A-L RA Length A4C 6.3 cm RA ESV A4C (MOD) 51.2mL LV Diastology MV E' medial 0.072 (>0.07 m/s) MV E Vmax 0.75 (0.4-1.3 m/s) MV E/E' MED 10.32 (<14) MV E' lateral 0.149 (>0.1 m/s) MV E/E' LAT 5.00 (<14) MV E' Average 0.111 m/s MV E/E'(average) 6.74 Aortic Valve AoV Vmax 1.03 m/s LVOT Vmax 0.64 m/s AoV Peak Grad 4.3 mmHg LVOT Peak Grad 1.6 mmHg AoV Area (Vmax) 2.13 cm2 LVOT VTI 0.103 m AoV VTI 0.188 m LVOT Mean Grad 1.1 mmHg AoV Mean João. 0.77 m/s LVOT SV 35.42 mL AoV Mean Grad 2.7 mmHg LVOT Diam s 2.05 cm AoV Area (VTI) 1.88 cm2 AV Regurg Peak Gr. 4.28 mmHg Velocity Ratio 0.62 Mitral Valve MV DT 300 (160-240 msec) MV Vmax TIPS 0.70 m/s MV Mean Grad 0.6 (<2mmHg) MV VTI 0.120 m Pulmonary Valve PV Vmax 0.65 (0.5-1.5 m/s) RVOT Vmax 0.57 m/s PV Peak Grad 1.7 mmHg RVOT Peak Gr. 1.3 mmHg PV Mean João 0.45 m/s RVOT VTI 0.109 m PV Mean Grad 0.9 mmHg RVOT Mean Gr. 0.7 mmHg Tricuspid Valve RA Pressure 3.00 mmHg TR Vmax 2.16 m/s TV S' 0.11 m/s TR Peak Grad 18.6 mmHg RVSP (TR) 21.6 mmHg
--- NOTE | 2025-08-31 12:20 | PGE_ITS ---
Date of Service Date of service: 08/31/25 Time of Service: 09:00 Assessment and Plan Assessment and plan (1) Chest pain: Status: Acute Assessment and plan: - Given description of substernal chest pain occurring with exertion, relieved with rest, and associated with near syncopal episodes, high suspicion for development of stable angina and progression to ACS - Emergency department EKG was unremarkable and troponins negative - Patient accepted to [facility] [place] cardiology for further cardiac workup as nuclear stress test is unavailable at this facility until 09/04/2025 - Further recommendations by cardiology at [facility] include echocardiogram and daily serial troponins, monitoring on telemetry - Accepting [facility] physician Dr. Navarro (2) Near syncope: Status: Acute Assessment and plan: - Presumed to be secondary to chest pain as noted above (3) Atrial fibrillation: Status: Chronic Assessment and plan: - Continue home aspirin and clopidogrel after declogging procedure - Continue home metoprolol (4) Chronic indwelling Parsons catheter: Status: Acute Assessment and plan: - Secondary to prostate cancer Subjective Subjective Interval history since last seen: Mr. John is comfortable in bed. No chest pain. Exam Narrative Exam Narrative: General: This is a pleasant man in no distress HEENT: Normocephalic, atraumatic CV: RRR Resp: CTAB Abd: soft, NTND MSK: voluntary motion x4 Neuro: awake, alert, no focal deficits Objective Last Vital Signs Temp 36.4 C L 08/31/25 08:20 Pulse 85 08/31/25 08:20 Resp 16 08/31/25 08:20 BP 90/68 L 08/31/25 08:20 Pulse Ox 97 08/31/25 08:20 Laboratory Results - last 24 hr 08/30/25 08/30/25 08/31/25 12:00 14:15 06:07 WBC 7.48 RBC 4.30 L Hgb 13.9 Hct 41.4 MCV 96 H MCH 32.3 MCHC 33.6 RDW 13.1 Plt Count 153 MPV 9.9 Sodium 141 Potassium 3.6 Chloride 102 Carbon Dioxide 27.6 Anion Gap 11.4 H BUN 35 H Creatinine 1.5 H Est GFR (CKD-EPI 2020) 47.06 Glucose 109 H Calcium 9.3 Magnesium 2.7 H Troponin I 10 10 11 PAWSS Have you Been Recently Intoxicated or Drunk Within the Last 30 days?: No Have you Ever Experienced Previous Episodes of Alcohol Withdrawal?: No Have you ever Experienced Withdrawal Seizures?: No Have you ever Experienced Delirium Tremens(DT)s?: No Have you ever undergone Alcohol Rehabilitation Treatment (i.e, inpt ot outpatient treatment programs)?: No Have you ever Experienced Blackouts?: No Have you ever Combined Alcohol with other Downers within the last 90 days?: No Have you ever Combined Alcohol with any other Substance of Abuse during the last 90 days?: No Result: 0 Time Spent with Patient Time Spent with Patient: 25-34 minutes Time was spent: preparing to see the patient(eg.review tests), obtaining and/or reviewing separately otained hiistory, ordering medications,tests, procedures, referring, communicating with other health animal care specialist, indepentently interpreting results, counseling the patient and care coordination
[2025-08-31 15:02] VITALS: BP 104/71; PULSE 82; RESP 20; TEMP 36; O2SAT 97
[2025-08-31 19:29] VITALS: BP 119/86; PULSE 96; RESP 17; TEMP 36.2; O2SAT 98
[2025-08-31] MEDS: Melatonin 3 MG TAB 9 MG PO (19:40)
[2025-08-31] MEDS: Metoprolol CR 50 MG TABCR 125 MG PO (19:40)
[2025-08-31] MEDS: Amitriptyline 10 MG TAB 20 MG PO (19:40)
[2025-08-31] MEDS: Tamsulosin 0.4 MG CAPCR PO (19:41)
[2025-08-31] MEDS: Atorvastatin 40 MG TAB 80 MG PO (19:41)
[2025-08-31 23:04] VITALS: BP 114/76; PULSE 92; RESP 16; TEMP 36; O2SAT 99
[2025-09-01 03:21] VITALS: BP 81/60; PULSE 89; RESP 18; TEMP 36; O2SAT 96
[2025-09-01 07:47] VITALS: BP 100/72; PULSE 76; RESP 16; TEMP 36.5; O2SAT 97
[2025-09-01] MEDS: Polyethylene Glycol 3350 17 GM PACKET PO (08:00)
[2025-09-01] MEDS: Mirabegron 25 MG TABCR PO (08:01)
[2025-09-01] MEDS: Aspirin 81 MG CHEW PO (08:02)
[2025-09-01] MEDS: Clopidogrel 75 MG TAB PO (08:02)
[2025-09-01] MEDS: Spironolactone 25 MG TAB PO (08:02)
[2025-09-01] MEDS: Venlafaxine 37.5 MG CAPCR PO (08:02)
[2025-09-01] MEDS: Normal Saline Flush 10 ML SYR IVP (08:03)
--- NOTE | 2025-09-01 08:16 | CMDISCH_ITS ---
Date of service: 09/01/25 Time of Service: 08:16 LACE Index Scoring Tool Questions: Length of Stay (in days): 2 Was the patient admitted via the E.D.?: Yes Comorbidities: Previous M.I. (s/p watchman procedure) and Metastatic Solid Tumor (Prostate cancer) E.D. Visits: 1 Answers: Total Score: 11 Risk of Readmission: High Risk Care Management Discharge Plan Reason for Hospitalization: Atypical Chest Pain Discharge Plan: Mando is being transferred to [facility] via [place]. Patient/Family Education Needs: Review transfer instructions and discuss ask me three. Services Needed at Discharge: Transportation (EMS)
--- NOTE | 2025-09-01 08:45 | RT.EKG_ITS ---
APPROVED REPORT Exam: Resting ECG Reason for Exam: arrhythmia Patient Location: I HR:80 bpm ECG Measurements Heart Rate 80 AXIS CA 203 P 0 QRSd 164 QRS 32 QT 403 T -31 QTc 465 Conclusion Sinus rhythm...normal P axis, V-rate 50- 99 Right bundle branch block...QRSd>120, terminal axis(90,270)
[2025-09-01 10:26] LABS: HCT 43.3 % (40.0-50.0); HGB 14.9 g/dL (13.5-17.5); MCH 32.5 pg (27.0-33.0); MCHC 34.4 % (32.0-36.0); MCV 94 fL (80-95); MPV 9.8 fL (8.0-11.0); Platelet Count 174 10^3/uL (130-400); RBC 4.59 10^6/uL (4.36-5.78); RDW 13.0 % (11.8-14.1); RDW-SD 44.8 fL; WBC 8.57 10^3/uL (4.4-10.8)
[2025-09-01 10:47] LABS: ALT 46 U/L (16-63); AST 25 U/L (15-37); Albumin 4.0 g/dL (3.4-5.0); Alkaline Phosphatase 130 U/L (46-116); Anion Gap 11.6 mmol/L (3-11); BUN 40 mg/dL (7-18); Bilirubin, Total 0.9 mg/dL (0.2-1.0); CO2 27.4 mmol/L (21.0-32.0); Calcium 9.5 mg/dL (8.5-10.1); Chloride 100 mmol/L (98-107); Estimated GFR 40.50 (mL/min/1.73m2); Glucose 116 mg/dL (74-106); Magnesium 2.3 mg/dL (1.8-2.4); Potassium 3.7 mmol/L (3.5-5.1); Sodium 139 mmol/L (136-145); Total Protein 7.8 g/dL (6.4-8.2); Troponin I 11 ng/L (<or=76)
[2025-09-01 11:18] VITALS: BP 101/60; PULSE 81; RESP 17; TEMP 36.7; O2SAT 97
--- NOTE | 2025-09-01 11:36 | DSE_ITS ---
Date of service: 09/01/25 Time of Service: 11:36 DS: Diagnosis Discharge Diagnosis (1) Chest pain: Status: Acute Asessment and Plan: - Given description of substernal chest pain occurring with exertion, relieved with rest, and associated with near syncopal episodes, high suspicion for development of stable angina and progression to ACS - Emergency department EKG was unremarkable and troponins negative - Patient accepted to [facility] [place] cardiology for further cardiac workup as nuclear stress test is unavailable at this facility until 09/04/2025 - Further recommendations by cardiology at [facility] include echocardiogram and daily serial troponins, monitoring on telemetry - - August 31 echo with LVEF 55-60%, mild LA dilation, normal RA size, no structural valvular abnormalities, trace AR, mild MR and mild TR, RVSP 22, ascending aorta 4 cm - - Negative troponin through Sep 01 morning - Accepting [facility] physician Dr. Navarro (2) Near syncope: Status: Acute Asessment and Plan: - Presumed to be secondary to chest pain as noted above (3) Atrial fibrillation: Status: Chronic Asessment and Plan: - Continue home aspirin and clopidogrel after declogging procedure - Continue home metoprolol (4) Chronic indwelling Lester catheter: Status: Acute Asessment and Plan: - Secondary to prostate cancer Discharge Plan Disposition Patient Disposition: Transfer-Acute Inpatient Care Specific Acute Inpt Facility: [facility] Condition: Fair Discharge Details Reason For Visit: Atypical Chest Pain Admit Date/Time: 08/30/25 16:44 Admit Provider: Mikhail Bahena Attending Provider: Mikhail Bahena Primary Care Provider: Fernanda,Local Hospital Course Hospital Course: Mando John is a 80 year old man presenting August 30 with chest pain and near syncope, with workup concerning for stable angina that is progressing to ACS. Cardiac stress testing not available at this facility until the following week. Patient was accepted to [facility] for cardiac stress. Home Meds and New Rx's Prescriptions: Continued melatonin 10 mg capsule 10 mg PO HS metoprolol succinate 50 mg tablet extended release 24 hr 125 mg PO .nightly mirabegron [Myrbetriq] 25 mg tablet extended release 24 hr 25 mg PO DAILY Probiotic 3 billion cell capsule 3,000 mmu cells PO DAILY Rx Instructions: administer with a meal acetaminophen 500 mg capsule 1,000 mg PO Q8H spironolactone 25 mg tablet 25 mg PO DAILY Qty: 30 0RF bumetanide 1 mg tablet 1 mg PO BID Rx Instructions: 1 mg in AM and 0.5mg In evening clopidogrel 75 mg tablet 75 mg PO DAILY dapagliflozin propanediol [Farxiga] 10 mg tablet 10 mg PO DAILY venlafaxine [Effexor XR] 75 mg capsule,extended release 24hr 37.5 mg PO DAILY diclofenac sodium 3 % Gel 100 g topical QID PRN atorvastatin 80 mg Tablet 80 mg PO QPM tamsulosin 0.4 mg Capsule 0.4 mg PO HS amitriptyline 10 mg Tablet 20 mg PO DAILY ascorbic acid (vitamin C) [Vitamin C] 1,000 mg Tablet 1,000 mg PO DAILY aspirin 81 mg Tablet 81 mg PO DAILY multivitamin Capsule 1 cap PO DAILY magnesium oxide 400 mg (241.3 mg magnesium) tablet 400 mg PO BID Discontinued melatonin 10 mg capsule 10 mg PO QHS Discharge Instructions Activity:: Activity as Tolerated Equipment/Supplies:: No Equipment Needed Diet:: As Tolerated DS: Summary Time Spent with Patient providing and/or coordinating discharge services: Less than 30 minutes Status at Discharge Functional status at discharge: independent ambulation Overall status at discharge: patient is not back to baseline Mental Status: mental status grossly normal Speech and Movement: speech and movement normal Mood: congruent mood Affect: normal affect Exam Psych Mental Status: mental status grossly normal Speech and Movement: speech and movement normal Mood: congruent mood Affect: normal affect DS: Data Vitals/I&O Vitals and I&O: Vital Signs Temperature 36.7 C 09/01/25 11:18 Temperature Source Temporal Artery Scan 09/01/25 11:18 Pulse 81 09/01/25 11:18 Pulse Rhythm Regular 08/30/25 18:18 Pulse 77 08/30/25 17:45 Respiratory Rate 17 09/01/25 11:18 Respiratory Effort Short of Breath 08/30/25 18:18 Respiratory Depth Normal 08/30/25 18:18 Respiratory Pattern Normal 08/30/25 18:18 Blood Pressure 101/60 09/01/25 11:18 Blood Pressure Mean 73 09/01/25 11:18 Blood Pressure Position Sitting 08/30/25 11:00 Pulse Oximetry 97 09/01/25 11:18 Oxygen Delivery Method Room Air 09/01/25 11:18 Oxygen Flow Rate 0 09/01/25 11:18 Pain Level 0 09/01/25 11:18 Comment pt has been off unit 08/31/25 11:17 Intake & Output 08/31/25 08/31/25 09/01/25 11:59 23:59 11:59 Intake Total 360 / 830 470 / 830 Output Total 1350 / 2100 750 / 2100 1400 / 1400 Balance -990 / -1270 -280 / -1270 -1400 / -1400 Intake: IV Oral 360 / 820 460 / 820 Output: Urine 1350 / 2100 750 / 2100 1400 / 1400 Other: Urine Color Yellow Yellow Straw Urine Appearance Clear Cloudy Cloudy Sediment Urine Odor Normal Comment pt has lester Data Completed and Pending Labs on day of discharge: Labs from last 24 hours 09/01/25 10:23 WBC 8.57 RBC 4.59 Hgb 14.9 Hct 43.3 MCV 94 MCH 32.5 MCHC 34.4 RDW 13.0 Plt Count 174 MPV 9.8 Sodium 139 Potassium 3.7 Chloride 100 Carbon Dioxide 27.4 Anion Gap 11.6 H BUN 40 H Creatinine 1.7 H Est GFR (CKD-EPI 2020) 40.50 Glucose 116 H Calcium 9.5 Magnesium 2.3 Total Bilirubin 0.9 AST 25 ALT 46 Alkaline Phosphatase 130 H Troponin I 11 Total Protein 7.8 Albumin 4.0 PFSH All Active Problems (Updated 08/30/25 @ 18:02 by TARIQ RODRIGUEZ) Chronic indwelling Lester catheter (Acute) Near syncope (Acute) Chest pain (Acute) Heart failure (Acute) Fatigue (Acute) Allergic reaction caused by a drug (Acute) Atrial fibrillation (Chronic) Abdominal pain (Acute) Choledocholithiasis (Acute) Medical History Ventral hernia 2017- repaired Chronic anticoagulation a fib Prostate cancer 2017 Radiation, follows with urology (Dr. 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 Kinsey) Surgical History S/P rotator cuff repair around 2009- bilateral shoulders History of kidney surgery 2017, left 1/3 removed H/O ventral hernia repair History of cardiac catheterization unsure of date Social History Smoking/Tobacco Use Status: Never Smoking risk assessment performed?: Yes Alcohol Intake: current Alcohol Intake frequency: a few times a week Drug use: Never Substance use type: does not use Housing: house Do you feel safe at home: Yes Do you feel safe in your relationship?: Yes Time Spent with Patient Time Spent with Patient: <45 minutes Time was spent: preparing to see the patient(eg.review tests), obtaining and/or reviewing separately otained hiistory, ordering medications,tests, procedures, referring, communicating with other health human services care specialist, indepentently interpreting results, counseling the patient and care coordination
--- NOTE | 2025-09-01 12:02 | CHAPLAIN ---
Mando was sitting up at the edge of the bed when I visited. His partner, Amaris was with him. Mando said [place] is being [place] [facility] [place] He was [place] a couple of years ago he said. He lives in [facility]. I explained my role and offered support.
[2025-09-01 12:46] VITALS: PULSE 88
--- NOTE | 2025-09-01 18:03 | NUR.NOTE ---
Nursing Note:Report called to [facility] at 18:00, report taken by Liv JAMES [id number].
== END 2025-09-01 18:30 | disposition short-term general hospital (02) | DRG 311 ==
LOC: ER 17:46 → MS 18:01
PROVIDERS: Admitting Provider Family Medicine; Emergency Provider Student in an Organized Health Care Education/Training Program; Responsible Provider Family Medicine; Visit Provider Family Medicine
DX: I24.9 Acute ischemic heart disease, unspecified (principal); I48.91 Unspecified atrial fibrillation; R55 Syncope and collapse; C61 Malignant neoplasm of prostate; Z95.818 Presence of other cardiac implants and grafts; E78.00 Pure hypercholesterolemia, unspecified; Z79.02 Long term (current) use of antithrombotics/antiplatelets; Z79.899 Other long term (current) drug therapy; Z85.528 Personal history of other malignant neoplasm of kidney; Z90.5 Acquired absence of kidney; Z96.0 Presence of urogenital implants
CPT/HCPCS: 00123; 36415; 71275; 80048; 80053; 85027; 93005; 93306; 93308; 99285; 83735; 83880; 84443; 84484; 85025; 85610; 85730; 93010; 99223; 99231; 99238; J3490